=== PATIENT | female | born 1960 | race Caucasian/White ===

== ENCOUNTER 2018-09-02 11:50 | Emergency (ER) | payer OTHER ==
[2018-09-02] MEDS ORDERED: Albuterol 0.083% 2.5 MG/3 ML Neb Soln NEB ONE (12:28)
--- NOTE | 2018-09-02 12:31 | EDM.PDOC ---
ED HPI GENERAL MEDICAL PROBLEM - General Chief Complaint: Respiratory Problem Stated Complaint: SYNCOPE, SICK [id number] Time Seen by Provider: 09/02/18 12:31 Source of Information: Reports: Patient History Limitations: Reports: No Limitations - History of Present Illness INITIAL COMMENTS - FREE TEXT/NARRATIVE: 57-year-old female presents for evaluation and treatment of a cough and syncope. Patient reports she's been with a cough and cold symptoms for the last 2 weeks. She states that started with a sore throat and right-sided ear pain. She states that these symptoms have improved. She reports sneezing. States that the cough has been mostly dry but when she takes some NyQuil or DayQuil it is more of a productive cough. She reports some tightness in her chest and she feels short of breath. She reports that she has been coughing so hard she has "blacking out spells." She states that she loses control of her bowel and bladder when these occur. She states that she will be coughing will turn red in the face and then purple. She then states that she blacks out for approximately 10 seconds. On some occasion she has fallen another she has remained standing. She additionally reports symptoms of headache, body aches and states that her lungs hurt. She has tried multiple [id number] medications but her symptoms have persisted. She denies any nausea, vomiting, diarrhea or abdominal pain. Patient reports that she has a CPAP machine but has been unable to wear it due to the shortness of breath. Patient does not have a primary care provider. Relocated from [place], [place] approximately one month ago. Middle Chest Pain Score (Numeric/FACES): 5 - Related Data Allergies Allergy/AdvReac Type Severity Reaction Status Date / Time azithromycin Allergy Cannot Verified 09/02/18 12:04 Remember clindamycin Allergy Cannot Verified 09/02/18 12:04 Remember erythromycin base Allergy Cannot Verified 09/02/18 12:04 Remember Penicillins Allergy Cannot Verified 09/02/18 12:04 Remember Home Meds: Home Meds Albuterol [Ventolin HFA] 1 puff INH Q4H PRN #1 inhaler 09/02/18 [Rx] Doxycycline [Vibramycin] 100 mg PO BID #20 cap 09/02/18 [Rx] Past Medical History Cardiovascular History: Reports: Hypertension Respiratory History: Reports: Pneumonia, Recurrent Endocrine/Metabolic History: Reports: Diabetes, Type II, Hypothyroidism - Past Surgical History Female Surgical History: Reports: Section Social & Family History - Tobacco Use Smoking Status *Q: Never Smoker - Recreational Drug Use Recreational Drug Use: No ED ROS GENERAL - Review of Systems Review Of Systems: See Below Constitutional: Reports: Fever (subjective), Chills, Other (reports bodyaches) HEENT: Reports: Ear Pain, Throat Pain Respiratory: Reports: Shortness of Breath, Cough, Sputum Cardiovascular: Reports: Chest Pain (reports tightness in chest) GI/Abdominal: Reports: Nausea, Stool Incontinence (with syncope). Denies: Abdominal Pain, Vomiting : Reports: Incontinence (with syncope) Neurological: Reports: Headache, Syncope (post cough) ED EXAM, GENERAL - Physical Exam Exam: See Below Exam Limited By: No Limitations General Appearance: Alert, WD/WN, No Apparent Distress, Obese Ears: Normal External Exam, Normal Canal, Hearing Grossly Normal, Normal TMs Ear Exam: Left Ear: TM Red Nose: Normal Inspection Throat/Mouth: Normal Inspection, Normal Voice, No Airway Compromise Neck: Normal Inspection. No: Lymphadenopathy (L), Lymphadenopathy (R) Respiratory/Chest: No Respiratory Distress, Lungs Clear, Normal Breath Sounds Cardiovascular: Normal Peripheral Pulses, Regular Rate, Rhythm, No Murmur Peripheral Pulses: 2+: Radial (L), Radial (R) GI/Abdominal: Soft, Non-Tender Neurological: Alert, Oriented, Normal Cognition Psychiatric: Normal Affect, Normal Mood Skin Exam: Warm, Dry, Normal Color Course - Vital Signs Last Recorded V/S: Last Vital Signs Temp 97.4 F 09/02/18 12:00 Pulse 75 09/02/18 12:00 Resp 26 H 09/02/18 12:00 BP 145/80 H 09/02/18 12:00 Pulse Ox 91 L 09/02/18 12:28 - Orders/Labs/Meds Labs: Laboratory Tests 09/02/18 09/02/18 09/02/18 Range/Units 14:00 14:00 14:00 WBC 10.73 H (3.98-10.04) K/mm3 RBC 4.52 (3.98-5.22) M/mm3 Hgb 13.8 (11.2-15.7) gm/L Hct 44.2 (34.1-44.9) % MCV 97.8 H (79.4-94.8) fl MCH 30.5 (25.6-32.2) pg MCHC 31.2 L (32.2-35.5) g/dl RDW Std Deviation 49.6 H (36.4-46.3) fL Plt Count 334 (182-369) K/mm3 MPV 10.5 (9.4-12.3) fl Neutrophils % (Manual) 40 (40-60) % Band Neutrophils % 0 (0-10) % Lymphocytes % (Manual) 44 H (20-40) % Atypical Lymphs % 0 % Monocytes % (Manual) 8 (2-10) % Eosinophils % (Manual) 7 H (0.7-5.8) % Basophils % (Manual) 1 (0.1-1.2) Platelet Estimate Adequate Plt Morphology Comment Normal Hypochromasia 1+ slight Anisocytosis 1+ slight RBC Morph Comment Not Reportable D-Dimer, Quantitative 0.32 (0.19-0.50) mg/L Sodium 138 (136-145) mEq/L Potassium 4.4 (3.5-5.1) mEq/L Chloride 103 (98-107) mEq/L Carbon Dioxide 25 (21-32) mEq/L Anion Gap 14.4 (5-15) BUN 19 H (7-18) mg/dL Creatinine 0.8 (0.55-1.02) mg/dL Est Cr Clr Drug Dosing 57.07 mL/min Estimated GFR (MDRD) > 60 (>60) mL/min BUN/Creatinine Ratio 23.8 H (14-18) Glucose 100 (74-106) mg/dL Calcium 8.9 (8.5-10.1) mg/dL Total Bilirubin 0.3 (0.2-1.0) mg/dL AST 18 (15-37) U/L ALT 23 (14-59) U/L Alkaline Phosphatase 90 (46-116) U/L C-Reactive Protein 1.0 (<1.0) mg/dL NT-Pro-B Natriuret Pep (0-125) pg/mL Total Protein 7.1 (6.4-8.2) g/dl Albumin 3.3 L (3.4-5.0) g/dl Globulin 3.8 gm/dL Albumin/Globulin Ratio 0.9 L (1-2) 09/02/18 Range/Units 14:00 WBC (3.98-10.04) K/mm3 RBC (3.98-5.22) M/mm3 Hgb (11.2-15.7) gm/L Hct (34.1-44.9) % MCV (79.4-94.8) fl MCH (25.6-32.2) pg MCHC (32.2-35.5) g/dl RDW Std Deviation (36.4-46.3) fL Plt Count (182-369) K/mm3 MPV (9.4-12.3) fl Neutrophils % (Manual) (40-60) % Band Neutrophils % (0-10) % Lymphocytes % (Manual) (20-40) % Atypical Lymphs % % Monocytes % (Manual) (2-10) % Eosinophils % (Manual) (0.7-5.8) % Basophils % (Manual) (0.1-1.2) Platelet Estimate Plt Morphology Comment Hypochromasia Anisocytosis RBC Morph Comment D-Dimer, Quantitative (0.19-0.50) mg/L Sodium (136-145) mEq/L Potassium (3.5-5.1) mEq/L Chloride (98-107) mEq/L Carbon Dioxide (21-32) mEq/L Anion Gap (5-15) BUN (7-18) mg/dL Creatinine (0.55-1.02) mg/dL Est Cr Clr Drug Dosing mL/min Estimated GFR (MDRD) (>60) mL/min BUN/Creatinine Ratio (14-18) Glucose (74-106) mg/dL Calcium (8.5-10.1) mg/dL Total Bilirubin (0.2-1.0) mg/dL AST (15-37) U/L ALT (14-59) U/L Alkaline Phosphatase (46-116) U/L C-Reactive Protein (<1.0) mg/dL NT-Pro-B Natriuret Pep 85 (0-125) pg/mL Total Protein (6.4-8.2) g/dl Albumin (3.4-5.0) g/dl Globulin gm/dL Albumin/Globulin Ratio (1-2) Meds: Medications Discontinued Medications Generic Name Dose Route Start Last Admin Trade Name Freq PRN Reason Stop Dose Admin Albuterol 2.5 mg 09/02/18 12:28 09/02/18 12:36 Proventil Neb Soln NEB 09/02/18 12:29 2.5 mg ONETIME ONE Administration - Radiology Interpretation Free Text/Narrative:: Chest: Two views of the chest were obtained. Comparison: No prior chest x-ray. Heart size at the upper limits of normal. Lung markings are diffusely increased. Lungs otherwise are clear. Mild degenerative change is scattered throughout the spine. Impression: 1. Increased lung markings. Findings may represent pulmonary vascular congestion as well as possible mild bronchitis. 2. Incidental degenerative change is scattered throughout the spine. - Re-Assessments/Exams Free Text/Narrative Re-Assessment/Exam: 09/02/18 15:33 Reviewed the labs and imaging with the patient. Concerned that her oxygen sats is on the lower side in the upper 80s low. She states that she did go on a trip recently to [place]. Will obtain a BNP and d- dimer to rule out a PE as well as evaluate for heart failure. She reports no history of heart failure. Patient states she has been told her oxygen sats have been low before but she does not know what they normally run at. 09/02/18 16:26 BNP and d-dimer within normal limits. Will treat for bronchitis. Discharge instructions as documented. Departure - Departure Time of Disposition: 16:26 Disposition: Home, Self-Care 01 Condition: Fair Clinical Impression: Bronchitis - Discharge Information *PRESCRIPTION DRUG MONITORING PROGRAM REVIEWED*: No *COPY OF PRESCRIPTION DRUG MONITORING REPORT IN PATIENT ABIOLA: No Prescriptions: Albuterol [Ventolin HFA] 1 puff INH Q4H PRN #1 inhaler PRN Reason: Shortness Of Breath Doxycycline [Vibramycin] 100 mg PO BID #20 cap Instructions: Acute Bronchitis, Adult, [id number] Referrals: PCP,None [Primary Care Provider] - Pennie Hall MD [Physician] - Forms: ED Department Discharge, ED Return to Work/School Form Additional Instructions: Use the albuterol 1 or 2 puffs every 4 to 6 hours as needed shortness of breath. Recommend purchasing a spacer at the pharmacy and using this with the inhaler. doxycycline 1 cap PO Twice a day for 10 days. This medication can cause photosensitivity. Avoid the sun or worsen screen if you are in the sun. make sure you are drinking plenty of fluids. REst. Follow up with yur primary care provider next week as planned. Please return to the ER if your symptoms change or worsen.i
--- NOTE | 2018-09-02 15:09 | CR ---
Chest: Two views of the chest were obtained. Comparison: No prior chest x-ray. Heart size at the upper limits of normal. Lung markings are diffusely increased. Lungs otherwise are clear. Mild degenerative change is scattered throughout the spine. Impression: 1. Increased lung markings. Findings may represent pulmonary vascular congestion as well as possible mild bronchitis. 2. Incidental degenerative change is scattered throughout the spine. Diagnostic code #3
== END 2018-09-02 16:49 | disposition home or self-care (01) ==
LOC: JD.ED 11:50
DX: J40 Bronchitis, not specified as acute or chronic (principal); E11.9 Type 2 diabetes mellitus without complications; Z88.0 Allergy status to penicillin; Z88.1 Allergy status to other antibiotic agents
CPT/HCPCS: 36415; 71046; 71046-26; 80053; 83880; 85007; 85027; 85379; 86140; 94640; 99285-25

== ENCOUNTER 2018-09-05 10:54 | Emergency (ER) | payer OTHER ==
--- NOTE | 2018-09-05 13:05 | CR ---
Chest: Two views of the chest are obtained. Comparison: Previous chest x-ray of 09/02/18. Heart size is normal. Lungs are clear with no acute parenchymal change. Mild diffuse disc space narrowing is seen within the spine. Impression: 1. Nothing acute is appreciated on two-view chest x-ray. Diagnostic code #2
--- NOTE | 2018-09-05 13:07 | EDM.PDOC ---
ED HPI GENERAL MEDICAL PROBLEM - General Chief Complaint: Respiratory Problem Stated Complaint: SOB Time Seen by Provider: 09/05/18 12:32 Source of Information: Reports: Patient, RN Notes Reviewed History Limitations: Reports: No Limitations - History of Present Illness INITIAL COMMENTS - FREE TEXT/NARRATIVE: Medical records indicate that the patient was seen in this ED on 09/02/2018 with a complaint at that time of a dry cough and cold-like symptoms for the prior 2 weeks. Her symptoms had begun with a sore throat, followed by right ear pain, and sneezing. She reported that she sometimes coughed to near-syncope and incontinence of both bowel and bladder. A CBC performed at that time revealed a WBC count elevated at 10.73, but with 0% bandemia. A CMP was normal, a CRP was 1.0, and a D-dimer was not elevated. A BNP was normal at 85. A chest x-ray found increased pulmonary markings, consistent with either mild CHF or bronchitis, however, there was no cardiomegaly. The patient was diagnosed with bronchitis and prescribed an albuterol MDI along with doxycycline 100 mg BID x 10 days. She was instructed to follow-up with her PCP. The patient states that her symptoms have persisted, and have not improved despite the albuterol and doxycycline. She states that she had a syncopal episode associated with a coughing spell last night. She states that she struck her head, and has a mild headache, but no bump on her head. The patient states that her cough is worse if she is supine, and her breath sounds are loud enough to keep her awake at night. She has not had a fever. In addition to the albuterol and doxycycline, the patient states that she has also taken [id number] Mucinex, which has also not helped. Here in the ED, the patient's vital signs were found to be stable, with an oxygen saturation of 97% on room air. The patient's PCP is Dr. Pennie Madison. The patient states that she has an appointment to see Dr. Madison on 09/08/2018. - Related Data Allergies Allergy/AdvReac Type Severity Reaction Status Date / Time azithromycin Allergy Cannot Verified 09/05/18 11:02 Remember clindamycin Allergy Cannot Verified 09/05/18 11:02 Remember erythromycin base Allergy Cannot Verified 09/05/18 11:02 Remember Penicillins Allergy Cannot Verified 09/05/18 11:02 Remember Home Meds: Home Meds Albuterol [Ventolin HFA] 1 puff INH Q4H PRN #1 inhaler 09/02/18 [Rx] Doxycycline [Vibramycin] 100 mg PO BID #20 cap 09/02/18 [Rx] Past Medical History Cardiovascular History: Reports: Hypertension Respiratory History: Reports: Sleep Apnea (nightly CPAP 8) Gastrointestinal History: Reports: GERD, PUD Genitourinary History: Reports: Urinary Incontinence (stress incontinence) Psychiatric History: Reports: Depression Endocrine/Metabolic History: Reports: Diabetes, Type II, Hypothyroidism, Obesity /BMI 30+ - Past Surgical History HEENT Surgical History: Reports: Oral Surgery (wisdom teeth extraction) GI Surgical History: Reports: Appendectomy, Colonoscopy (x 2), EGD (x 1), Hernia , Abdominal (x 2) Female Surgical History: Reports: Section (x 2), Tubal Ligation ( bilateral) Social & Family History - Tobacco Use Smoking Status *Q: Former Smoker Years of Tobacco use: 22 Packs/Tins Daily: 1.5 Month/Year Tobacco Last Used: Quit 2008 Second Hand Smoke Exposure: No - Alcohol Use Alcohol Use History: Yes Alcohol Use Frequency: Socially - Recreational Drug Use Recreational Drug Use: No - Living Situation & Occupation Living situation: Reports: , with Spouse 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 ED EXAM, GENERAL - Physical Exam Exam: See Below Exam Limited By: No Limitations General Appearance: Alert, WD/WN, No Apparent Distress Eye Exam: Bilateral Eye: EOMI, Normal Inspection Ears: Normal External Exam, Normal Canal, Hearing Grossly Normal, Normal TMs Nose: Normal Inspection, Normal Mucosa, No Blood Throat/Mouth: Normal Inspection, Normal Lips, Normal Teeth, Normal Gums, Normal Oropharynx, Normal Voice, No Airway Compromise Head: Atraumatic, Normocephalic Neck: Normal Inspection, Supple, Non-Tender, Full Range of Motion. No: Lymphadenopathy (L), Lymphadenopathy (R) Respiratory/Chest: No Respiratory Distress, No Accessory Muscle Use, Decreased Breath Sounds (overall), Wheezing (slight inspiratory, with end-expiratory squeak). No: Crackles, Rhonchi, Prolonged Expiration Cardiovascular: Normal Peripheral Pulses, Regular Rate, Rhythm, No Gallop, No JVD, No Murmur, No Rub Peripheral Pulses: 4+: Radial (L), Radial (R) GI/Abdominal: Normal Bowel Sounds, Soft, Non-Tender, No Organomegaly, No Distention, No Abnormal Bruit, No Mass, Other (Obese) (Female) Exam: Deferred Rectal (Female) Exam: Deferred Back Exam: Normal Inspection, Full Range of Motion, NT Extremities: Normal Inspection, Normal Range of Motion, Normal Capillary Refill Neurological: Alert, Oriented, Normal Cognition, No Motor/Sensory Deficits Psychiatric: Normal Affect Skin Exam: Warm, Dry, Intact, Normal Color, No Rash Course - Vital Signs Last Recorded V/S: Last Vital Signs Temp 36.6 C 09/05/18 11:00 Pulse 78 09/05/18 11:00 Resp 18 09/05/18 11:00 BP 130/69 09/05/18 11:00 Pulse Ox 97 09/05/18 11:00 - Re-Assessments/Exams Free Text/Narrative Re-Assessment/Exam: 09/05/18 12:57 2-view chest radiograph reviewed. Poor inspiratory effort. The cardiac silhouette is within normal limits. No pulmonary vascular congestion. No pleural effusions. No focal infiltrate, although there are generally increased pulmonary markings, possibly due to body habitus. No pneumothorax. Formal read per the Radiologist pending. 09/05/18 13:06 I agree with the diagnosis from 09/02/2018 that the patient is suffering from bronchitis, however, I do not agree with the treatment with albuterol and doxycycline, as numerous studies have shown that neither of these agents are effective. Unfortunately, there are no treatments that have been shown to be of benefit for the treatment of viral bronchitis - not expectorants, decongestants , mucolytics, albuterol, ipratropium, antibiotics, or even opioids. It will simply have to run its course. Fortunately, the patient is nearing 3 weeks of symptoms, and bronchitis usually lasts about 3 weeks, so her symptoms should start to marcial on their own fairly soon. The patient's syncope is clearly cough syncope. I recommended that if she develops a coughing fit, that she sit down before she falls down. Departure - Departure Time of Disposition: 13:10 Disposition: Home, Self-Care Condition: Good Clinical Impression: Viral bronchitis, Cough syncope - Discharge Information *PRESCRIPTION DRUG MONITORING PROGRAM REVIEWED*: Not Applicable *COPY OF PRESCRIPTION DRUG MONITORING REPORT IN PATIENT ABIOLA: Not Applicable Instructions: Syncope, [id number], Acute Bronchitis, Adult Referrals: Pennie Hall MD [Physician] - Forms: ED Department Discharge Additional Instructions: You were seen in the emergency room for a persistent cough, sometimes so severe that it causes you to pass out. Workup in the ER included a chest x-ray, which, like the chest x-ray from 2018, is consistent with bronchitis. Unfortunately, there are no medicines that have been shown to benefit the symptoms of bronchitis. We therefore recommend that you stop taking the albuterol and doxycycline. Fortunately, bronchitis typically last about 3 weeks, so your symptoms should start to improve fairly soon. If you feel a cough spasm coming on, please sit down, so that you do not pass out and hurt yourself. Follow-up with your PCP, Dr. Madison, at your previously scheduled appointment this coming 09/08/2018. If any other problems, please do not hesitate to return to the ER.
== END 2018-09-05 13:20 | disposition home or self-care (01) ==
LOC: JD.ED 10:54
DX: J20.8 Acute bronchitis due to other specified organisms (principal); B97.89 Other viral agents as the cause of diseases classified elsewhere; I10 Essential (primary) hypertension; E11.9 Type 2 diabetes mellitus without complications; Z87.891 Personal history of nicotine dependence; Z79.899 Other long term (current) drug therapy; Z88.1 Allergy status to other antibiotic agents; Z88.0 Allergy status to penicillin
CPT/HCPCS: 71046; 71046-26; 99282; 99283-25

== ENCOUNTER 2019-07-20 16:10 | Inpatient (IN) | payer OTHER ==
[2019-07-20] MEDS ORDERED: Sodium Chloride 0.9% 1,000 ML IV ONE ×3 (17:20→20:36)
[2019-07-20] MEDS ORDERED: Sodium Chloride 0.9% 10 ML Syringe FLUSH PRN ×2 (17:21→18:31)
[2019-07-20] MEDS ORDERED: Ondansetron 4 MG/2 ML SDV IVPUSH ONE (17:21)
[2019-07-20] MEDS ORDERED: HYDROmorphone 0.5 MG/0.5 ML Syringe IVPUSH ONE (17:21)
[2019-07-20] MEDS ORDERED: Insulin Regular, Human 100 Units/ML 3 ML Vial IV ONE ×2 (18:16→20:16)
[2019-07-20] MEDS ORDERED: Iopamidol 612 MG/ML 100 ML Bottle IVPUSH ONE (18:31)
--- NOTE | 2019-07-20 20:25 | CT ---
CT abdomen and pelvis Technique: Multiple axial sections were obtained from above the dome of the diaphragm inferiorly through the pubic symphysis. Intravenous and oral contrast was utilized. Findings: Visualized lung bases show nothing acute. Liver shows mild fatty infiltration. No focal abnormality is appreciated within the liver. Spleen appears within normal limits. Adrenal glands show no nodule. Kidneys show symmetric contrast enhancement without hydronephrosis or mass. Pancreas appears within normal limits. Gallbladder contains no calcified gallstones. Aorta shows no aneurysm. No retroperitoneal adenopathy or mesenteric abnormalities are appreciated. Very slight inflammatory change is noted between the sigmoid colon and left ovary. Findings could represent diverticulitis and less likely oophoritis. No additional inflammatory change is seen. No free fluid is identified. Appendix is not visualized with certainty. Bone window settings shows diffuse degenerative change throughout the spine. Impression: 1. Inflammatory change between the sigmoid colon and ovary on the left side. Differential includes diverticulitis as well as less likely oophoritis. 2. Fatty infiltration within the liver. 3. Other findings as noted above which are nonacute. Diagnostic code #3 This report was dictated in MDT
[2019-07-20] MEDS ORDERED: metroNIDAZOLE/Normal Saline 500 MG in Premix Bag 1 BAG IV ONE (20:32)
[2019-07-20] MEDS ORDERED: Levofloxacin/Dextrose 5%-Water 750 MG in Premix Bag 1 BAG IV ONE (20:32)
--- NOTE | 2019-07-20 20:43 | EDM.PDOC ---
ED HPI GENERAL MEDICAL PROBLEM - General Chief Complaint: Diabetic Complaint Stated Complaint: SENT BY DR GARZA. Time Seen by Provider: 07/20/19 17:00 Source of Information: Reports: Patient, Provider (Dr. Vasquez called report) History Limitations: Reports: No Limitations - History of Present Illness INITIAL COMMENTS - FREE TEXT/NARRATIVE: Porsha is a 58 year old female sent over to us by her PCP for hyperglycemia. She was seeing her PCP today for abdominal pain she has had for 2.5 weeks. Labs were done which shows a glucose of 771. She was sent over to us for further care. Porsha reports LLQ pain into her back and flank for the last 2.5 weeks. Reports diarrhea, dark black/green stools. This has mostly resolved. Reports associated nausea and headaches. She has had a subjective fever and chills. She reports polydipsia. Has not been checking her blood sugars at home. She is on metformin/ dapagliflozin but has not taken it over the last 2-3 weeks due to feeling ill. Reports she had a colonscopy in 2013 and was told she had diverticula. Left Abdominal Pain Score (Numeric/FACES): 8 - Related Data Allergies Allergy/AdvReac Type Severity Reaction Status Date / Time azithromycin Allergy Cannot Verified 07/20/19 22:42 Remember clindamycin Allergy Cannot Verified 07/20/19 22:42 Remember erythromycin base Allergy Cannot Verified 07/20/19 22:42 Remember Penicillins Allergy Cannot Verified 07/20/19 22:42 Remember Home Meds: Home Meds Albuterol [Ventolin HFA] 1 puff INH Q4H PRN #1 inhaler 09/02/18 [Rx] Doxycycline [Vibramycin] 100 mg PO BID #20 cap 09/02/18 [Rx] Past Medical History Cardiovascular History: Reports: Hypertension Respiratory History: Reports: Asthma, COPD, Sleep Apnea Gastrointestinal History: Reports: GERD, PUD Genitourinary History: Reports: Urinary Incontinence Psychiatric History: Reports: Depression Endocrine/Metabolic History: Reports: Diabetes, Type II, Hypothyroidism, Obesity /BMI 30+ - Past Surgical History HEENT Surgical History: Reports: Oral Surgery GI Surgical History: Reports: Appendectomy, Colonoscopy, EGD, Hernia, Abdominal Female Surgical History: Reports: Section, Tubal Ligation Social & Family History - Tobacco Use Smoking Status *Q: Never Smoker Second Hand Smoke Exposure: No - Caffeine Use Caffeine Use: Reports: None - Recreational Drug Use Recreational Drug Use: No - Living Situation & Occupation Living situation: Reports: , with Spouse 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 Denies: Vomiting : Reports: No Symptoms Musculoskeletal: Reports: Back Pain (left back) ED EXAM GENERAL NO PERIP PULSE - Physical Exam Exam: See Below Exam Limited By: No Limitations General Appearance: Alert, WD/WN, No Apparent Distress, Obese Eye Exam: Bilateral Eye: Normal Inspection Throat/Mouth: Normal Inspection, Normal Lips, Normal Voice, No Airway Compromise Respiratory/Chest: No Respiratory Distress, Lungs Clear, Normal Breath Sounds Cardiovascular: Normal Peripheral Pulses, Regular Rate, Rhythm, No Murmur GI/Abdominal: Tender (suprapubic, LLQ), Abnormal Bowel Sounds (hypoactive ) Neurological: Alert, Oriented, Normal Cognition Psychiatric: Normal Affect, Normal Mood Skin Exam: Warm, Dry, Normal Color EKG INTERPRETATION EKG Date: 07/20/19 Time: 18:14 Rhythm: NSR Rate (Beats/Min): 89 [place]: Normal P-Wave: Present QRS: Normal ST-T: Normal QT: Normal EKG Interpretation Comments: nsr at 89 bpm. No acute changes. Reviewed by myself and Dr. Salgado. Course - Vital Signs Last Recorded V/S: Last Vital Signs Temp 97.5 F 07/20/19 16:45 Pulse 78 07/20/19 22:18 Resp 16 07/20/19 22:18 BP 149/98 H 07/20/19 22:18 Pulse Ox 97 07/20/19 22:18 - Orders/Labs/Meds Orders: Active Orders 24 hr Category Date Time Status Blood Glucose Check, Bedside [RC] ONETIME Care 07/20/19 20:37 Active EKG 12 Lead [EKG Documentation Completion] [RC] STAT Care 07/20/19 17:21 Active Peripheral IV Care [RC] . DIRECTED Care 07/20/19 17:21 Active UA W/MICROSCOPIC [URIN] Stat Lab 07/20/19 17:40 Ordered Sodium Chloride 0.9% [Saline Flush] Med 07/20/19 18:31 Active 10 ml FLUSH ONETIME PRN Peripheral IV Insertion Adult [OM.PC] Routine Oth 07/20/19 17:20 Ordered Medication Orders Acetaminophen (Tylenol) 650 mg PO Q4H PRN PRN Reason: Pain (Mild 1-3)/fever Hydrocodone Bitart/Acetaminophen ([place] 325-5 Mg) 1 tab PO Q4H PRN PRN Reason: Pain (moderate 4-6) Lactated Ringer's (Ringers, Lactated) 1,000 mls @ 85 mls/hr IV ASDIRECTED [facility] Levofloxacin/Dextrose 750 mg/ (Premix) 150 mls @ 100 mls/hr IV Q24H [facility] Metronidazole 500 mg/ Premix 100 mls @ 100 mls/hr IV Q8H [facility] Insulin Glargine (Lantus) 8 unit SUBCUT BEDTIME [facility] Morphine Sulfate (Morphine) 1 mg IVPUSH Q2H PRN PRN Reason: Pain (severe 7-10) Stop: 07/21/19 21:33 Nystatin (Nystatin Oral Syringe) 500,000 unit PO QID [facility] Ondansetron HCl (Zofran) 4 mg IVPUSH Q6H PRN PRN Reason: Nausea/Vomiting Senna/Docusate Sodium (Senna Plus) 1 tab PO BID PRN PRN Reason: Constipation Sodium Chloride (Saline Flush) 10 ml FLUSH ONETIME PRN PRN Reason: Keep Vein Open Last Admin: 07/20/19 19:52 Dose: 10 ml Labs: Laboratory Tests 07/20/19 07/20/19 07/20/19 Range/Units 17:30 17:30 17:30 WBC 10.94 H (3.98-10.04) K/mm3 RBC 4.47 (3.98-5.22) M/mm3 Hgb 14.2 (11.2-15.7) gm/dl Hct 43.5 (34.1-44.9) % MCV 97.3 H (79.4-94.8) fl MCH 31.8 (25.6-32.2) pg MCHC 32.6 (32.2-35.5) g/dl RDW Std Deviation 44.9 (36.4-46.3) fL Plt Count 338 (182-369) K/mm3 MPV 11.1 (9.4-12.3) fl Neut % (Auto) 76.3 H (34.0-71.1) % Lymph % (Auto) 15.4 L (19.3-51.7) % [place] % (Auto) 7.1 (4.7-12.5) % Eos % (Auto) 0.3 L (0.7-5.8) Baso % (Auto) 0.4 (0.1-1.2) % Neut # (Auto) 8.35 H (1.56-6.13) K/mm3 Lymph # (Auto) 1.69 (1.18-3.74) K/mm3 [place] # (Auto) 0.78 H (0.24-0.36) K/mm3 Eos # (Auto) 0.03 L (0.04-0.36) K/mm3 Baso # (Auto) 0.04 (0.01-0.08) K/mm3 Manual Slide Review Normal smear Sodium 127 L D (136-145) mEq/L Potassium 4.0 (3.5-5.1) mEq/L Chloride 90 L D (98-107) mEq/L Carbon Dioxide 26 (21-32) mEq/L Anion Gap 15.0 (5-15) BUN 5 L (7-18) mg/dL Creatinine 0.9 (0.55-1.02) mg/dL Est Cr Clr Drug Dosing 50.13 mL/min Estimated GFR (MDRD) > 60 (>60) mL/min BUN/Creatinine Ratio 5.6 L (14-18) Glucose 717 H* (74-106) mg/dL POC Glucose (70-105) mg/dL Serum Osmolality 303 H (280-300) mosm/kg Calcium 9.0 (8.5-10.1) mg/dL Magnesium 1.8 (1.8-2.4) mg/dl Total Bilirubin 0.5 (0.2-1.0) mg/dL AST 19 (15-37) U/L ALT 31 (14-59) U/L Alkaline Phosphatase 155 H (46-116) U/L C-Reactive Protein (<1.0) mg/dL Total Protein 7.0 (6.4-8.2) g/dl Albumin 2.9 L (3.4-5.0) g/dl Globulin 4.1 gm/dL Albumin/Globulin Ratio 0.7 L (1-2) Lipase 158 (73-393) U/L Ketones 1.89 (0.0-0.3) mM 07/20/19 07/20/19 07/20/19 Range/Units 17:30 19:41 21:01 WBC (3.98-10.04) K/mm3 RBC (3.98-5.22) M/mm3 Hgb (11.2-15.7) gm/dl Hct (34.1-44.9) % MCV (79.4-94.8) fl MCH (25.6-32.2) pg MCHC (32.2-35.5) g/dl RDW Std Deviation (36.4-46.3) fL Plt Count (182-369) K/mm3 MPV (9.4-12.3) fl Neut % (Auto) (34.0-71.1) % Lymph % (Auto) (19.3-51.7) % [place] % (Auto) (4.7-12.5) % Eos % (Auto) (0.7-5.8) Baso % (Auto) (0.1-1.2) % Neut # (Auto) (1.56-6.13) K/mm3 Lymph # (Auto) (1.18-3.74) K/mm3 [place] # (Auto) (0.24-0.36) K/mm3 Eos # (Auto) (0.04-0.36) K/mm3 Baso # (Auto) (0.01-0.08) K/mm3 Manual Slide Review Sodium (136-145) mEq/L Potassium (3.5-5.1) mEq/L Chloride (98-107) mEq/L Carbon Dioxide (21-32) mEq/L Anion Gap (5-15) BUN (7-18) mg/dL Creatinine (0.55-1.02) mg/dL Est Cr Clr Drug Dosing mL/min Estimated GFR (MDRD) (>60) mL/min BUN/Creatinine Ratio (14-18) Glucose 461 H (74-106) mg/dL POC Glucose 300 H (70-105) mg/dL Serum Osmolality (280-300) mosm/kg Calcium (8.5-10.1) mg/dL Magnesium (1.8-2.4) mg/dl Total Bilirubin (0.2-1.0) mg/dL AST (15-37) U/L ALT (14-59) U/L Alkaline Phosphatase (46-116) U/L C-Reactive Protein 8.1 H* (<1.0) mg/dL Total Protein (6.4-8.2) g/dl Albumin (3.4-5.0) g/dl Globulin gm/dL Albumin/Globulin Ratio (1-2) Lipase (73-393) U/L Ketones (0.0-0.3) mM Meds: Medications Generic Name Dose Route Start Last Admin Trade Name Freq PRN Reason Stop Dose Admin Acetaminophen 650 mg 07/20/19 21:21 Tylenol PO Q4H PRN Pain (Mild 1-3)/fever Hydrocodone Bitart/Acetaminophen 1 tab 07/20/19 21:21 [place] 325-5 Mg PO Q4H PRN Pain (moderate 4-6) Lactated Ringer's 1,000 mls @ 85 mls/hr 07/20/19 21:45 Ringers, Lactated IV ASDIRECTED [facility] Levofloxacin/Dextrose 750 mg/ 150 mls @ 100 mls/hr 07/21/19 21:45 Premix IV Q24H [facility] Metronidazole 500 mg/ Premix 100 mls @ 100 mls/hr 07/21/19 05:45 IV Q8H [facility] Insulin Glargine 8 unit 07/20/19 22:30 Lantus SUBCUT BEDTIME [facility] Morphine Sulfate 1 mg 07/20/19 21:21 Morphine IVPUSH 07/21/19 21:33 Q2H PRN Pain (severe 7-10) Nystatin 500,000 unit 07/21/19 09:00 Nystatin Oral Syringe PO QID [facility] Ondansetron HCl 4 mg 07/20/19 21:21 Zofran IVPUSH Q6H PRN Nausea/Vomiting Senna/Docusate Sodium 1 tab 07/20/19 22:32 Senna Plus PO BID PRN Constipation Sodium Chloride 10 ml 07/20/19 18:31 07/20/19 19:52 Saline Flush FLUSH 10 ml ONETIME PRN Administration Keep Vein Open Discontinued Medications Generic Name Dose Route Start Last Admin Trade Name Nimo PRN Reason Stop Dose Admin Hydromorphone HCl 0.5 mg 07/20/19 17:21 07/20/19 17:35 Dilaudid IVPUSH 07/20/19 17:22 0.5 mg ONETIME ONE Administration Sodium Chloride 1,000 mls @ 999 mls/hr 07/20/19 17:20 07/20/19 17:34 Normal Saline IV 07/20/19 18:20 999 mls/hr ONETIME ONE Administration Sodium Chloride 1,000 mls @ 999 mls/hr 07/20/19 18:16 07/20/19 18:33 Normal Saline IV 07/20/19 19:16 999 mls/hr ONETIME ONE Administration Levofloxacin/Dextrose 750 mg/ 150 mls @ 100 mls/hr 07/20/19 20:32 07/20/19 21 :45 Premix IV 07/20/19 22:01 100 mls/hr ONETIME ONE Administration Metronidazole 500 mg/ Premix 100 mls @ 100 mls/hr 07/20/19 20:32 07/20/19 20: 47 IV 07/20/19 21:31 100 mls/hr ONETIME ONE Administration Sodium Chloride 1,000 mls @ 150 mls/hr 07/20/19 20:36 07/20/19 20:47 Normal Saline IV 07/21/19 03:15 150 mls/hr ONETIME ONE Administration Lactated Ringer's 1,000 mls @ 125 mls/hr 07/20/19 21:30 Ringers, Lactated IV ASDIRECTED [facility] Insulin Human Regular 5 unit 07/20/19 18:16 07/20/19 18:24 Humulin R IV 07/20/19 18:17 5 unit ONETIME ONE Administration Insulin Human Regular 5 unit 07/20/19 20:16 07/20/19 20:32 Humulin R IV 07/20/19 20:17 5 unit ONETIME ONE Administration Iopamidol 100 ml 07/20/19 18:31 07/20/19 19:52 Isovue-300 (61%) IVPUSH 07/20/19 18:32 100 ml ONETIME ONE Administration Ondansetron HCl 4 mg 07/20/19 17:21 07/20/19 17:34 Zofran IVPUSH 07/20/19 17:22 4 mg ONETIME ONE Administration Sodium Chloride 10 ml 07/20/19 17:21 07/20/19 17:36 Saline Flush FLUSH 10 ml ASDIRECTED PRN Administration Keep Vein Open - Radiology Interpretation Free Text/Narrative:: CT abdomen and pelvis Technique: Multiple axial sections were obtained from above the dome of the diaphragm inferiorly through the pubic symphysis. Intravenous and oral contrast was utilized. Findings: Visualized lung bases show nothing acute. Liver shows mild fatty infiltration. No focal abnormality is appreciated within the liver. Spleen appears within normal limits. Adrenal glands show no nodule. Kidneys show symmetric contrast enhancement without hydronephrosis or mass. Pancreas appears within normal limits. Gallbladder contains no calcified gallstones. Aorta shows no aneurysm. No retroperitoneal adenopathy or mesenteric abnormalities are appreciated. Very slight inflammatory change is noted between the sigmoid colon and left ovary. Findings could represent diverticulitis and less likely oophoritis. No additional inflammatory change is seen. No free fluid is identified. Appendix is not visualized with certainty. Bone window settings shows diffuse degenerative change throughout the spine. Impression: 1. Inflammatory change between the sigmoid colon and ovary on the left side. Differential includes diverticulitis as well as less likely oophoritis. 2. Fatty infiltration within the liver. 3. Other findings as noted above which are nonacute. - Re-Assessments/Exams Free Text/Narrative Re-Assessment/Exam: 07/20/19 21:22 i reviewed the labs and imaging with the patient. She has received 2 L NS and 2 doses of 5 units regular insulin. Blood sugar at this time down to 300 from 717. 0.5mg Dilaudid has controlled her pain and she has not needed any additional pain medication. Spoke with Dr. Dumas regarding the patient. Agrees to the admission. She has been started on levaquin and flagyl for the diverticulitis. Departure - Departure Time of Disposition: 21:41 Disposition: Admitted As Inpatient 68 Condition: Fair Clinical Impression: Diverticulitis, Hyperglycemia - Discharge Information *PRESCRIPTION DRUG MONITORING PROGRAM REVIEWED*: No *COPY OF PRESCRIPTION DRUG MONITORING REPORT IN PATIENT ABIOLA: No Sepsis Event Note - Evaluation Sepsis Screening Result: No Definite Risk - Focused Exam Vital Signs: Vital Signs Temp Pulse Resp BP Pulse Ox 07/20/19 16:45 97.5 F 95 18 124/80 98 Date Exam was Performed: 07/20/19 Time Exam was Performed: 23:03 - My Orders Last 24 Hours: My Active Orders 07/20/19 17:20 Peripheral IV Insertion Adult [OM.PC] Routine 07/20/19 17:21 EKG 12 Lead [EKG Documentation Completion] [RC] STAT Peripheral IV Care [RC] . DIRECTED 07/20/19 17:40 UA W/MICROSCOPIC [URIN] Stat 07/20/19 18:31 Sodium Chloride 0.9% [Saline Flush] 10 ml FLUSH ONETIME PRN 07/20/19 20:37 Blood Glucose Check, Bedside [RC] ONETIME - Assessment/Plan Last 24 Hours: My Active Orders 07/20/19 17:20 Peripheral IV Insertion Adult [OM.PC] Routine 07/20/19 17:21 EKG 12 Lead [EKG Documentation Completion] [RC] STAT Peripheral IV Care [RC] . DIRECTED 07/20/19 17:40 UA W/MICROSCOPIC [URIN] Stat 07/20/19 18:31 Sodium Chloride 0.9% [Saline Flush] 10 ml FLUSH ONETIME PRN 07/20/19 20:37 Blood Glucose Check, Bedside [RC] ONETIME
[2019-07-20] MEDS ORDERED: Ondansetron 4 MG/2 ML SDV IVPUSH PRN (21:21)
[2019-07-20] MEDS ORDERED: Morphine 2 MG/ML Syringe IVPUSH PRN (21:21)
[2019-07-20] MEDS ORDERED: Lactated Ringers 1,000 ML IV SCH (21:30)
[2019-07-20] MEDS: Levofloxacin/Dextrose 5%-Water 750 MG in Premix Bag 1 BAG IV SCH (21:59)
--- NOTE | 2019-07-20 22:32 | PCM.HP.2 ---
<Abi Livingston - Last Filed: 07/20/19 23:28> H&P History of Present Illness - General Date of Service: 07/20/19 Admit Problem/Dx: Admission Diagnosis/Problem Admission Diagnosis/Problem Diverticulitis of colon, hyperglycemia Source of Information: Patient History Limitations: Reports: No Limitations - History of Present Illness Initial Comments - Free Text/Narative: The patient is a 58-year-old female, PCP Dr. Madison, with a past history of diabetes mellitus type 2, COPD, obstructive sleep apnea, hypertension , and hyperlipidemia, presented to the emergency room today after experiencing 3 weeks of abdominal pain that has gradually worsened until becoming intolerable this afternoon. Abdominal pain is sharp and is in left lower quadrant with radiation to left back. Worsened by oral intake and pressing on leftlower abdomen. For the past 3 weeks, patient has been eating clear liquids only. When she tries to advance diet to bland foods, abdominal pain increases and she goes back to clear liquids. Associated symptoms include nausea. She vomited yesterday. Denies blood in vomit. She has also had diarrhea on and off. Last bowel movement was 3 days ago and was dark. Yesterday, while urinating, the patient noticed bright red blood in the toilet and self rectal exam revealed blood per rectum. She has not had blood per rectum today. No blood was on toilet paper when wiping. She notes for 3 weeks her legs have been cramping on and off, she has had sore throat, dry mouth, cracking at corners of lips, and has been urinating more frequently and has felt very dehydrated. She also admits to feeling dizzy on and off. Denies shortness of breath, coughing, fevers or chills. The patient has not been taking her metformin because of nausea. 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 Yes sore throat/mouth- thrush on examination Left Abdominal Pain Score (Numeric/FACES): 8 - Related Data Allergies/Adverse Reactions: Allergies Allergy/AdvReac Type Severity Reaction Status Date / Time azithromycin Allergy Cannot Verified 07/20/19 22:42 Remember clindamycin Allergy Cannot Verified 07/20/19 22:42 Remember erythromycin base Allergy Cannot Verified 07/20/19 22:42 Remember Penicillins Allergy Cannot Verified 07/20/19 22:42 Remember Home Medications: Home Meds Albuterol [Ventolin HFA] 1 puff INH Q4H PRN #1 inhaler 09/02/18 [Rx] Doxycycline [Vibramycin] 100 mg PO BID #20 cap 09/02/18 [Rx] Past Medical History Cardiovascular History: Reports: High Cholesterol, Hypertension Respiratory History: Reports: Asthma, COPD, Sleep Apnea Gastrointestinal History: Reports: GERD, PUD Genitourinary History: Reports: Urinary Incontinence Psychiatric History: Reports: Depression Endocrine/Metabolic History: Reports: Diabetes, Type II, Hypothyroidism, Obesity /BMI 30+ - Past Surgical History HEENT Surgical History: Reports: Oral Surgery (wears dentures) GI Surgical History: Reports: Appendectomy, Colonoscopy (2016, benign), EGD, Hernia, Abdominal Female Surgical History: Reports: Section, Tubal Ligation Social & Family History - Tobacco Use Smoking Status *Q: Never Smoker Second Hand Smoke Exposure: No - Caffeine Use Caffeine Use: Reports: None - Recreational Drug Use Recreational Drug Use: No - Living Situation & Occupation Living situation: Reports: , with Spouse 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 Denies: Headache, Numbness, Difficulty Walking, Change in Speech Exam - Exam Exam: See Below - Vital Signs Vital Signs: Last Vital Signs Temp 97.5 F 07/20/19 16:45 Pulse 78 07/20/19 22:18 Resp 16 07/20/19 22:18 BP 149/98 H 07/20/19 22:18 Pulse Ox 97 07/20/19 22:18 Weight: 84.368 kg - Exam General: Alert, Oriented, Cooperative HEENT: Pupils Equal, Pupils Reactive, Other (White patches on tongue and posterior oropharynx, thrush. No petechiae on mucosa. Angular cheilitis bilaterally.) Neck: Supple, Trachea Midline Lungs: Clear to Auscultation, Normal Respiratory Effort. No: Crackles, Rales, Rhonchi, Wheezing Cardiovascular: Regular Rate, Regular Rhythm, Normal S1, Normal S2 GI/Abdominal Exam: Soft, Tender (at LLQ. No tenderness with percussion. Voluntary guarding with palpation of LLQ.), Other (hypoactive bowel sounds) Extremities: No Pedal Edema, Normal Capillary Refill Peripheral Pulses: 2+: Popliteal (L), Popliteal (R) Skin: Warm, Dry, Intact Neuro Extensive - Mental Status: Alert, Oriented x3, Normal Mood/Affect Neuro Extensive - Motor, Sensory, Reflexes: Other (Patient has light touch sensation intact in all 10 toes bilaterally and lateral and medial plantar and dorsal surface of feet.) - Patient Data Lab Results Last 24 hrs: Laboratory Results - last 24 hr 07/20/19 07/20/19 07/20/19 Range/Units 17:30 17:30 17:30 WBC 10.94 H (3.98-10.04) K/mm3 RBC 4.47 (3.98-5.22) M/mm3 Hgb 14.2 (11.2-15.7) gm/dl Hct 43.5 (34.1-44.9) % MCV 97.3 H (79.4-94.8) fl MCH 31.8 (25.6-32.2) pg MCHC 32.6 (32.2-35.5) g/dl RDW Std Deviation 44.9 (36.4-46.3) fL Plt Count 338 (182-369) K/mm3 MPV 11.1 (9.4-12.3) fl Neut % (Auto) 76.3 H (34.0-71.1) % Lymph % (Auto) 15.4 L (19.3-51.7) % [place] % (Auto) 7.1 (4.7-12.5) % Eos % (Auto) 0.3 L (0.7-5.8) Baso % (Auto) 0.4 (0.1-1.2) % Neut # (Auto) 8.35 H (1.56-6.13) K/mm3 Lymph # (Auto) 1.69 (1.18-3.74) K/mm3 [place] # (Auto) 0.78 H (0.24-0.36) K/mm3 Eos # (Auto) 0.03 L (0.04-0.36) K/mm3 Baso # (Auto) 0.04 (0.01-0.08) K/mm3 Manual Slide Review Normal smear Sodium 127 L D (136-145) mEq/L Potassium 4.0 (3.5-5.1) mEq/L Chloride 90 L D (98-107) mEq/L Carbon Dioxide 26 (21-32) mEq/L Anion Gap 15.0 (5-15) BUN 5 L (7-18) mg/dL Creatinine 0.9 (0.55-1.02) mg/dL Est Cr Clr Drug Dosing 50.13 mL/min Estimated GFR (MDRD) > 60 (>60) mL/min BUN/Creatinine Ratio 5.6 L (14-18) Glucose 717 H* (74-106) mg/dL POC Glucose (70-105) mg/dL Serum Osmolality 303 H (280-300) mosm/kg Calcium 9.0 (8.5-10.1) mg/dL Magnesium 1.8 (1.8-2.4) mg/dl Total Bilirubin 0.5 (0.2-1.0) mg/dL AST 19 (15-37) U/L ALT 31 (14-59) U/L Alkaline Phosphatase 155 H (46-116) U/L C-Reactive Protein (<1.0) mg/dL Total Protein 7.0 (6.4-8.2) g/dl Albumin 2.9 L (3.4-5.0) g/dl Globulin 4.1 gm/dL Albumin/Globulin Ratio 0.7 L (1-2) Lipase 158 (73-393) U/L Ketones 1.89 (0.0-0.3) mM 07/20/19 07/20/19 07/20/19 Range/Units 17:30 19:41 21:01 WBC (3.98-10.04) K/mm3 RBC (3.98-5.22) M/mm3 Hgb (11.2-15.7) gm/dl Hct (34.1-44.9) % MCV (79.4-94.8) fl MCH (25.6-32.2) pg MCHC (32.2-35.5) g/dl RDW Std Deviation (36.4-46.3) fL Plt Count (182-369) K/mm3 MPV (9.4-12.3) fl Neut % (Auto) (34.0-71.1) % Lymph % (Auto) (19.3-51.7) % [place] % (Auto) (4.7-12.5) % Eos % (Auto) (0.7-5.8) Baso % (Auto) (0.1-1.2) % Neut # (Auto) (1.56-6.13) K/mm3 Lymph # (Auto) (1.18-3.74) K/mm3 [place] # (Auto) (0.24-0.36) K/mm3 Eos # (Auto) (0.04-0.36) K/mm3 Baso # (Auto) (0.01-0.08) K/mm3 Manual Slide Review Sodium (136-145) mEq/L Potassium (3.5-5.1) mEq/L Chloride (98-107) mEq/L Carbon Dioxide (21-32) mEq/L Anion Gap (5-15) BUN (7-18) mg/dL Creatinine (0.55-1.02) mg/dL Est Cr Clr Drug Dosing mL/min Estimated GFR (MDRD) (>60) mL/min BUN/Creatinine Ratio (14-18) Glucose 461 H (74-106) mg/dL POC Glucose 300 H (70-105) mg/dL Serum Osmolality (280-300) mosm/kg Calcium (8.5-10.1) mg/dL Magnesium (1.8-2.4) mg/dl Total Bilirubin (0.2-1.0) mg/dL AST (15-37) U/L ALT (14-59) U/L Alkaline Phosphatase (46-116) U/L C-Reactive Protein 8.1 H* (<1.0) mg/dL Total Protein (6.4-8.2) g/dl Albumin (3.4-5.0) g/dl Globulin gm/dL Albumin/Globulin Ratio (1-2) Lipase (73-393) U/L Ketones (0.0-0.3) mM Result Diagrams: 07/20/19 17:30 07/20/19 17:30 Imaging Impressions Last 24 hrs: Abdominal/pelvis CT reveals inflammatory changes between the sigmoid colon and left ovary. Differential diagnosis includes acute sigmoid diverticulitis versus less likely oophoritis. Sepsis Event Note - Evaluation Sepsis Screening Result: No Definite Risk - Focused Exam Vital Signs: Vital Signs Temp Pulse Resp BP Pulse Ox 07/20/19 22:18 78 16 149/98 H 97 07/20/19 16:45 97.5 F 95 18 124/80 98 Date Exam was Performed: 07/20/19 Time Exam was Performed: 23:28 - Problem List (1) Diverticulitis SNOMED Code(s): 043514527 ICD Code: K57.92 - DVTRCLI OF INTEST, PART UNSP, W/O PERF OR ABSCESS W/O BLEED Status: Acute Priority: High Current Visit: Yes (2) Hyperglycemia SNOMED Code(s): 78347044 ICD Code: R73.9 - HYPERGLYCEMIA, UNSPECIFIED Status: Acute Priority: High Current Visit: Yes (3) Diabetes mellitus type II, non insulin dependent SNOMED Code(s): 82368769 ICD Code: E11.9 - TYPE 2 DIABETES MELLITUS WITHOUT COMPLICATIONS Status: Chronic Priority: Medium Current Visit: Yes (4) Thrush, oral SNOMED Code(s): 62924035 ICD Code: B37.0 - CANDIDAL STOMATITIS Status: Acute Priority: Medium Current Visit: Yes (5) Severe obesity (BMI 35.0-35.9 with comorbidity) SNOMED Code(s): 69662796225622, 58395390447440 ICD Code: E66.01 - MORBID (SEVERE) OBESITY DUE TO EXCESS CALORIES; Z68.35 - BODY MASS INDEX (BMI) 35.0-35.9, ADULT Status: Chronic Priority: Medium Current Visit: Yes (6) Hematochezia SNOMED Code(s): 828040911 ICD Code: K92.1 - MELENA Status: Suspected Priority: Medium Current Visit: Yes (7) Obstructive sleep apnea on CPAP SNOMED Code(s): 00618600 ICD Code: G47.33 - OBSTRUCTIVE SLEEP APNEA (ADULT) (PEDIATRIC); Z99.89 - DEPENDENCE ON OTHER ENABLING MACHINES AND DEVICES Status: Chronic Priority: Low Current Visit: Yes (8) COPD (chronic obstructive pulmonary disease) SNOMED Code(s): 97534942 ICD Code: J44.9 - CHRONIC OBSTRUCTIVE PULMONARY DISEASE, UNSPECIFIED Status : Chronic Priority: Low Current Visit: Yes Problem List Initiated/Reviewed/Updated: Yes Orders Last 24hrs: Active Orders 24 hr Category Date Time Status Patient Status [ADT] Routine ADT 07/20/19 21:16 Active Antiembolic Devices [RC] PER UNIT ROUTINE Care 07/20/19 21:26 Active Blood Glucose Check, Bedside [RC] ONETIME Care 07/20/19 20:37 Active Blood Glucose Check, Bedside [RC] WITHMEALSANDBED Care 07/20/19 21:21 Active CPAP Adult [RT BiPAP/CPAP] [RC] ASDIRECTED Care 07/20/19 21:59 Ordered Diabetes Education [RC] DAILY Care 07/20/19 21:21 Active EKG 12 Lead [EKG Documentation Completion] [RC] STAT Care 07/20/19 17:21 Active Intake and Output [RC] QSHIFT Care 07/20/19 21:24 Active Oxygen Therapy [RC] PRN Care 07/20/19 21:21 Active POC Glucose [Blood Glucose Check, Bedside] [RC] Care 07/21/19 02:00 Ordered ASDIRECTED Peripheral IV Care [RC] . DIRECTED Care 07/20/19 17:21 Active Up With Assistance [RC] ASDIRECTED Care 07/20/19 21:21 Active VTE/DVT Education [RC] PER UNIT ROUTINE Care 07/20/19 21:21 Active Vital Signs [RC] Q4H Care 07/20/19 21:21 Active Clear Liquid Diet [DIET] Diet 07/21/19 Breakfast Active BASIC METABOLIC PANEL,BMP [CHEM] AM Lab 07/21/19 05:11 Ordered CBC WITH AUTO DIFF [HEME] AM Lab 07/21/19 05:11 Ordered GLYCOSYLATED HEMOGLOBIN,HGBA1C [CHEM] Routine Lab 07/20/19 17:30 Received MAGNESIUM [CHEM] AM Lab 07/21/19 05:11 Ordered PHOSPHORUS [CHEM] AM Lab 07/21/19 05:11 Ordered TROPONIN I [CHEM] Routine Lab 07/20/19 21:50 Received UA W/MICROSCOPIC [URIN] Stat Lab 07/20/19 17:40 Ordered Acetaminophen [Tylenol] Med 07/20/19 21:21 Active 650 mg PO Q4H PRN Acetaminophen/HYDROcodone [Lindsay 325-5 MG] Med 07/20/19 21:21 Active 1 tab PO Q4H PRN Insulin Glarg,Human.Rec.Analog [LantUS] Med 07/20/19 22:30 Ordered 8 unit SUBCUT BEDTIME Lactated Ringers [Ringers, Lactated] 1,000 ml Med 07/20/19 21:45 Active IV ASDIRECTED Levofloxacin/Dextrose 5%-Water [Levaquin in D5W 750 MG/ Med 07/21/19 21:45 Active 150 ML] 750 mg Premix Bag 1 bag IV Q24H Morphine Med 07/20/19 21:21 Active 1 mg IVPUSH Q2H PRN Nystatin [Nystatin Oral Syringe] Med 07/21/19 09:00 Ordered 500,000 unit PO QID Ondansetron [Zofran] Med 07/20/19 21:21 Active 4 mg IVPUSH Q6H PRN Sodium Chloride 0.9% [Saline Flush] Med 07/20/19 18:31 Active 10 ml FLUSH ONETIME PRN metroNIDAZOLE/Normal Saline [Flagyl 500 MG in NS 100 ML Med 07/21/19 05:45 Active ] 500 mg Premix Bag 1 bag IV Q8H Antiembolic Hose [OM.PC] Per Unit Routine Oth 07/20/19 21:26 Ordered Peripheral IV Insertion Adult [OM.PC] Routine Oth 07/20/19 17:20 Ordered Sequential Compression Device [OM.PC] Per Unit Routine Oth 07/20/19 21:26 Ordered Resuscitation Status Routine Resus Stat 07/20/19 21:21 Ordered Medication Orders Acetaminophen (Tylenol) 650 mg PO Q4H PRN PRN Reason: Pain (Mild 1-3)/fever Hydrocodone Bitart/Acetaminophen (Lindsay 325-5 Mg) 1 tab PO Q4H PRN PRN Reason: Pain (moderate 4-6) Lactated Ringer's (Ringers, Lactated) 1,000 mls @ 85 mls/hr IV ASDIRECTED GREG Levofloxacin/Dextrose 750 mg/ (Premix) 150 mls @ 100 mls/hr IV Q24H GREG Metronidazole 500 mg/ Premix 100 mls @ 100 mls/hr IV Q8H [facility] Insulin Glargine (Lantus) 8 unit SUBCUT BEDTIME GREG Morphine Sulfate (Morphine) 1 mg IVPUSH Q2H PRN PRN Reason: Pain (severe 7-10) Stop: 07/21/19 21:33 Nystatin (Nystatin Oral Syringe) 500,000 unit PO QID GREG Ondansetron HCl (Zofran) 4 mg IVPUSH Q6H PRN PRN Reason: Nausea/Vomiting Sodium Chloride (Saline Flush) 10 ml FLUSH ONETIME PRN PRN Reason: Keep Vein Open Last Admin: 07/20/19 19:52 Dose: 10 ml Assessment/Plan Comment:: Diverticulitis. CT scan reveals diverticulitis of sigmoid colon. WBC 10.94 with left shift. Patient is not able to tolerate oral intake due to pain and nausea. In ED was given levofloxacin 750mg IV x1, metronidazole 500mg IV x1, and Zofran 4mg IV x1. NS 1L bolus x3. The patient will be continued on maintenance fluids with LR running at 85ml/hr. Continue Levofloxacin 750mg IV q24 hours and metronidazole 500mg IV q8h. Zofran 4mg IV q6h as needed for nausea. NPO tonight. Clear liquid diet starting in AM. Hyperglycemia, uncontrolled diabetes Type 2. Blood sugar 717 on first draw in ED. Pt was given Insulin R 5 units and NS 2L bolus, blood sugar decreased to 461. Pt given another NS 1L bolus NS and insulin R 5 units, blood sugar decreased to 300. CO2 normal, no ketones in urine. Patient has not been taking metformin due to nausea. Will hold home metformin. Continue fluid resuscitation as stated above. Cautious Lantus 8 units SQ qhs tonight. Will check Fingerstick blood glucose ACHS. Diabetes education. Will adjust doses of insulins as needed based on actual FSs within the next 24 hours or earlier. Will check HbA1C. Requesting for lipid profile from PCP. BMP, Mg, Phos in AM. Hematochezia. Will recheck H/H in AM. Stool occult ordered. Holding off on anticoagulation for DVT prophylaxis until results of stool occult and repeat h/h after fluid resuscitation. Oral Thrush. Physical exam reveals white plaque on tongue and soft palate. Nystatin 500,000 units QID. Morbid obesity w/ comorbidities. BMI 37.6 Requesting for recent lipid profile from PCP. Will discuss diet and exercise for weight loss. Obstructive Sleep Apnea. Continue patient on CPAP at night with home settings. Asthma. Not in acute exacerbation. O2 saturation >93% on RA. Duoneb nebulizer 3mL q6h as needed for wheezing. Hx Hypertension. Patient reports hypertension but is not on home medications for blood pressure. Will monitor. Hx Dyslipidemia. Patient reports high cholesterol but is not on statin. Will request lipid profile and if not done in 6 months, will check. Pain Control: Acetaminophen 650mg po Q6H PRN mild pain or fever, HYDROcodone 5/ 325mg PO Q6H PRN moderate pain, and morphine sulfate 1 mg IVP Q2H PRN chest pain or severe pain. Nausea: In case of nausea use Zofran 4mg IVP Q6H PRN nausea. DVT Prophylaxis: Pt reports bright red blood per rectum yesterday. At this moment will avoid any anticoagulation or anti-aggregation. Will apply sequential compression devises and antiembolic stockings. We will keep monitoring H&H and platelet count, will check hemoccult and will monitor for any other signs of bleeding. If H&H stable, hemoccult negative, and no signs of active bleeding otherwise, anti-coagulation will be started tomorrow. GI Bleed Prophylaxis: Not indicated. Mylanta 30 mL q4h PRN indigestion. Constipation Prophylaxis: Docusate 100mg PO BID as needed for constipation. CODE STATUS: Full Code Disposition: Anticipated hospital stay is longer than 2 midnights. - Mortality Measure Prognosis:: Good <Leonardo Gardiner - Last Filed: 07/21/19 01:35> H&P History of Present Illness - General Admit Problem/Dx: Admission Diagnosis/Problem Admission Diagnosis/Problem Diverticulitis of colon Exam - Vital Signs Vital Signs: Last Vital Signs Temp 36.4 C 07/20/19 16:45 Pulse 78 07/20/19 22:18 Resp 16 07/20/19 22:18 BP 149/98 H 07/20/19 22:18 Pulse Ox 96 07/20/19 23:48 - Patient Data Lab Results Last 24 hrs: Laboratory Results - last 24 hr 07/20/19 07/20/19 07/20/19 Range/Units 17:30 17:30 17:30 WBC 10.94 H (3.98-10.04) K/mm3 RBC 4.47 (3.98-5.22) M/mm3 Hgb 14.2 (11.2-15.7) gm/dl Hct 43.5 (34.1-44.9) % MCV 97.3 H (79.4-94.8) fl MCH 31.8 (25.6-32.2) pg MCHC 32.6 (32.2-35.5) g/dl RDW Std Deviation 44.9 (36.4-46.3) fL Plt Count 338 (182-369) K/mm3 MPV 11.1 (9.4-12.3) fl Neut % (Auto) 76.3 H (34.0-71.1) % Lymph % (Auto) 15.4 L (19.3-51.7) % [place] % (Auto) 7.1 (4.7-12.5) % Eos % (Auto) 0.3 L (0.7-5.8) Baso % (Auto) 0.4 (0.1-1.2) % Neut # (Auto) 8.35 H (1.56-6.13) K/mm3 Lymph # (Auto) 1.69 (1.18-3.74) K/mm3 [place] # (Auto) 0.78 H (0.24-0.36) K/mm3 Eos # (Auto) 0.03 L (0.04-0.36) K/mm3 Baso # (Auto) 0.04 (0.01-0.08) K/mm3 Manual Slide Review Normal smear Sodium 127 L D (136-145) mEq/L Potassium 4.0 (3.5-5.1) mEq/L Chloride 90 L D (98-107) mEq/L Carbon Dioxide 26 (21-32) mEq/L Anion Gap 15.0 (5-15) BUN 5 L (7-18) mg/dL Creatinine 0.9 (0.55-1.02) mg/dL Est Cr Clr Drug Dosing 50.13 mL/min Estimated GFR (MDRD) > 60 (>60) mL/min BUN/Creatinine Ratio 5.6 L (14-18) Glucose 717 H* (74-106) mg/dL POC Glucose (70-105) mg/dL Hemoglobin A1c (4.50-6.20) % Serum Osmolality 303 H (280-300) mosm/kg Calcium 9.0 (8.5-10.1) mg/dL Magnesium 1.8 (1.8-2.4) mg/dl Total Bilirubin 0.5 (0.2-1.0) mg/dL AST 19 (15-37) U/L ALT 31 (14-59) U/L Alkaline Phosphatase 155 H (46-116) U/L Troponin I (0.00-0.056) ng/mL C-Reactive Protein (<1.0) mg/dL Total Protein 7.0 (6.4-8.2) g/dl Albumin 2.9 L (3.4-5.0) g/dl Globulin 4.1 gm/dL Albumin/Globulin Ratio 0.7 L (1-2) Lipase 158 (73-393) U/L Ketones 1.89 (0.0-0.3) mM 07/20/19 07/20/19 07/20/19 Range/Units 17:30 17:30 19:41 WBC (3.98-10.04) K/mm3 RBC (3.98-5.22) M/mm3 Hgb (11.2-15.7) gm/dl Hct (34.1-44.9) % MCV (79.4-94.8) fl MCH (25.6-32.2) pg MCHC (32.2-35.5) g/dl RDW Std Deviation (36.4-46.3) fL Plt Count (182-369) K/mm3 MPV (9.4-12.3) fl Neut % (Auto) (34.0-71.1) % Lymph % (Auto) (19.3-51.7) % [place] % (Auto) (4.7-12.5) % Eos % (Auto) (0.7-5.8) Baso % (Auto) (0.1-1.2) % Neut # (Auto) (1.56-6.13) K/mm3 Lymph # (Auto) (1.18-3.74) K/mm3 [place] # (Auto) (0.24-0.36) K/mm3 Eos # (Auto) (0.04-0.36) K/mm3 Baso # (Auto) (0.01-0.08) K/mm3 Manual Slide Review Sodium (136-145) mEq/L Potassium (3.5-5.1) mEq/L Chloride (98-107) mEq/L Carbon Dioxide (21-32) mEq/L Anion Gap (5-15) BUN (7-18) mg/dL Creatinine (0.55-1.02) mg/dL Est Cr Clr Drug Dosing mL/min Estimated GFR (MDRD) (>60) mL/min BUN/Creatinine Ratio (14-18) Glucose 461 H (74-106) mg/dL POC Glucose (70-105) mg/dL Hemoglobin A1c > 16.00 H (4.50-6.20) % Serum Osmolality (280-300) mosm/kg Calcium (8.5-10.1) mg/dL Magnesium (1.8-2.4) mg/dl Total Bilirubin (0.2-1.0) mg/dL AST (15-37) U/L ALT (14-59) U/L Alkaline Phosphatase (46-116) U/L Troponin I (0.00-0.056) ng/mL C-Reactive Protein 8.1 H* (<1.0) mg/dL Total Protein (6.4-8.2) g/dl Albumin (3.4-5.0) g/dl Globulin gm/dL Albumin/Globulin Ratio (1-2) Lipase (73-393) U/L Ketones (0.0-0.3) mM 07/20/19 07/20/19 07/20/19 Range/Units 21:01 21:50 23:26 WBC (3.98-10.04) K/mm3 RBC (3.98-5.22) M/mm3 Hgb (11.2-15.7) gm/dl Hct (34.1-44.9) % MCV (79.4-94.8) fl MCH (25.6-32.2) pg MCHC (32.2-35.5) g/dl RDW Std Deviation (36.4-46.3) fL Plt Count (182-369) K/mm3 MPV (9.4-12.3) fl Neut % (Auto) (34.0-71.1) % Lymph % (Auto) (19.3-51.7) % [place] % (Auto) (4.7-12.5) % Eos % (Auto) (0.7-5.8) Baso % (Auto) (0.1-1.2) % Neut # (Auto) (1.56-6.13) K/mm3 Lymph # (Auto) (1.18-3.74) K/mm3 [place] # (Auto) (0.24-0.36) K/mm3 Eos # (Auto) (0.04-0.36) K/mm3 Baso # (Auto) (0.01-0.08) K/mm3 Manual Slide Review Sodium (136-145) mEq/L Potassium (3.5-5.1) mEq/L Chloride (98-107) mEq/L Carbon Dioxide (21-32) mEq/L Anion Gap (5-15) BUN (7-18) mg/dL Creatinine (0.55-1.02) mg/dL Est Cr Clr Drug Dosing mL/min Estimated GFR (MDRD) (>60) mL/min BUN/Creatinine Ratio (14-18) Glucose (74-106) mg/dL POC Glucose 300 H 377 H (70-105) mg/dL Hemoglobin A1c (4.50-6.20) % Serum Osmolality (280-300) mosm/kg Calcium (8.5-10.1) mg/dL Magnesium (1.8-2.4) mg/dl Total Bilirubin (0.2-1.0) mg/dL AST (15-37) U/L ALT (14-59) U/L Alkaline Phosphatase (46-116) U/L Troponin I < 0.017 (0.00-0.056) ng/mL C-Reactive Protein (<1.0) mg/dL Total Protein (6.4-8.2) g/dl Albumin (3.4-5.0) g/dl Globulin gm/dL Albumin/Globulin Ratio (1-2) Lipase (73-393) U/L Ketones (0.0-0.3) mM Result Diagrams: 07/20/19 17:30 07/20/19 17:30 Sepsis Event Note - Focused Exam Vital Signs: Vital Signs Temp Pulse Resp BP Pulse Ox Pulse Ox Pulse Ox 07/20/19 23:48 96 96 07/20/19 22:18 78 16 149/98 H 97 07/20/19 16:45 36.4 C 95 18 124/80 98 Date Exam was Performed: 07/21/19 Time Exam was Performed: 01:33 Orders Last 24hrs: Active Orders 24 hr Category Date Time Status Patient Status [ADT] Routine ADT 07/20/19 21:16 Active Antiembolic Devices [RC] PER UNIT ROUTINE Care 07/20/19 21:26 Active Blood Glucose Check, Bedside [RC] WITHMEALSANDBED Care 07/20/19 21:21 Active CPAP Adult [RT BiPAP/CPAP] [RC] ASDIRECTED Care 07/20/19 21:59 Active Diabetes Education [RC] DAILY Care 07/20/19 21:21 Active EKG 12 Lead [EKG Documentation Completion] [RC] STAT Care 07/20/19 17:21 Active Intake and Output [RC] 04,16 Care 07/20/19 21:24 Active Oxygen Therapy [RC] PRN Care 07/20/19 21:21 Active POC Glucose [Blood Glucose Check, Bedside] [RC] Care 07/21/19 02:00 Active ASDIRECTED Up With Assistance [RC] ASDIRECTED Care 07/20/19 21:21 Active VTE/DVT Education [RC] PER UNIT ROUTINE Care 07/20/19 21:21 Active Vital Signs [RC] Q4H Care 07/20/19 21:21 Active Clear Liquid Diet [DIET] Diet 07/21/19 Breakfast Active BASIC METABOLIC PANEL,BMP [CHEM] AM Lab 07/21/19 05:11 Ordered CBC WITH AUTO DIFF [HEME] AM Lab 07/21/19 05:11 Ordered MAGNESIUM [CHEM] AM Lab 07/21/19 05:11 Ordered Occult Blood Diagnostic GI [OCCULT BLOOD DIAGNOSTIC] [ Lab 07/20/19 22:33 Ordered OP] Routine PHOSPHORUS [CHEM] AM Lab 07/21/19 05:11 Ordered UA W/MICROSCOPIC [URIN] Stat Lab 07/20/19 17:40 Ordered Acetaminophen [Tylenol] Med 07/20/19 21:21 Active 650 mg PO Q4H PRN Acetaminophen/HYDROcodone [Lindsay 325-5 MG] Med 07/20/19 21:21 Active 1 tab PO Q4H PRN Docusate Sodium/Sennosides [Senna Plus] Med 07/20/19 22:32 Active 1 tab PO BID PRN Insulin Glarg,Human.Rec.Analog [LantUS] Med 07/20/19 22:30 Active 8 unit SUBCUT BEDTIME Lactated Ringers [Ringers, Lactated] 1,000 ml Med 07/20/19 21:45 Active IV ASDIRECTED Levofloxacin/Dextrose 5%-Water [Levaquin in D5W 750 MG/ Med 07/21/19 21:45 Active 150 ML] 750 mg Premix Bag 1 bag IV Q24H Morphine Med 07/20/19 21:21 Active 1 mg IVPUSH Q2H PRN Nystatin [Nystatin Oral Syringe] Med 07/21/19 09:00 Active 500,000 unit PO QID Ondansetron [Zofran] Med 07/20/19 21:21 Active 4 mg IVPUSH Q6H PRN Sodium Chloride 0.9% [Saline Flush] Med 07/20/19 18:31 Active 10 ml FLUSH ONETIME PRN metroNIDAZOLE/Normal Saline [Flagyl 500 MG in NS 100 ML Med 07/21/19 05:45 Active ] 500 mg Premix Bag 1 bag IV Q8H Antiembolic Hose [OM.PC] Per Unit Routine Oth 07/20/19 21:26 Ordered Peripheral IV Insertion Adult [OM.PC] Routine Oth 07/20/19 17:20 Ordered Sequential Compression Device [OM.PC] Per Unit Routine Oth 07/20/19 21:26 Ordered Resuscitation Status Routine Resus Stat 07/20/19 21:21 Ordered Medication Orders Acetaminophen (Tylenol) 650 mg PO Q4H PRN PRN Reason: Pain (Mild 1-3)/fever Hydrocodone Bitart/Acetaminophen ([place] 325-5 Mg) 1 tab PO Q4H PRN PRN Reason: Pain (moderate 4-6) Last Admin: 07/20/19 23:24 Dose: 1 tab Lactated Ringer's (Ringers, Lactated) 1,000 mls @ 85 mls/hr IV ASDIRECTED [facility]REG Levofloxacin/Dextrose 750 mg/ (Premix) 150 mls @ 100 mls/hr IV Q24H [facility] Metronidazole 500 mg/ Premix 100 mls @ 100 mls/hr IV Q8H [facility] Insulin Glargine (Lantus) 8 unit SUBCUT BEDTIME [facility]REG Last Admin: 07/20/19 23:24 Dose: 8 units Morphine Sulfate (Morphine) 1 mg IVPUSH Q2H PRN PRN Reason: Pain (severe 7-10) Stop: 07/21/19 21:33 Nystatin (Nystatin Oral Syringe) 500,000 unit PO QID [facility]REG Ondansetron HCl (Zofran) 4 mg IVPUSH Q6H PRN PRN Reason: Nausea/Vomiting Senna/Docusate Sodium (Senna Plus) 1 tab PO BID PRN PRN Reason: Constipation Sodium Chloride (Saline Flush) 10 ml FLUSH ONETIME PRN PRN Reason: Keep Vein Open Last Admin: 07/20/19 19:52 Dose: 10 ml Assessment/Plan Comment:: I have seen and examined the patient independently of MERCEDES Livingston. I have discussed the patient with her. I have reviewed and agree with the plan and care as outlined by her. Please see orders.
[2019-07-20] MEDS: Insulin Glarg,Human.Rec.Analog 100 Unit/ML SUBCUT SCH (23:24)
[2019-07-20] MEDS: Acetaminophen/HYDROcodone 325-5 MG Tab PO PRN (23:24)
[2019-07-20 23:44] LABS: HEMOGLOBIN A1C > 16.00 % (4.50-6.20)
[2019-07-21] MEDS ORDERED: Albuterol/Ipratropium 3.0-0.5 MG/3 ML Neb Soln NEB PRN (02:03)
[2019-07-21] MEDS: metroNIDAZOLE/Normal Saline 500 MG in Premix Bag 1 BAG IV SCH ×3 (04:46→20:51)
[2019-07-21] MEDS: Lactated Ringers 1,000 ML IV SCH ×2 (05:46→16:29)
--- NOTE | 2019-07-21 07:57 | PCM.PN ---
- General Info Date of Service: 07/21/19 Admission Dx/Problem (Free Text): Admission Diagnosis/Problem Admission Diagnosis/Problem Diverticulitis of colon Functional Status: Reports: Pain Controlled, Tolerating Diet (clear liquids ), Ambulating, Urinating. Denies: New Symptoms - Review of Systems General: Reports: No Symptoms. Denies: Fever, Weakness, Fatigue, Malaise, Chills HEENT: Reports: Sore Throat. Denies: Headaches Pulmonary: Reports: No Symptoms. Denies: Shortness of Breath, Cough, Sputum, Wheezing Cardiovascular: Reports: No Symptoms. Denies: Chest Pain, Palpitations, Dyspnea on Exertion Gastrointestinal: Reports: Abdominal Pain (Left quadrants and epigastric region ), Diarrhea (2/2 oral contrast ). Denies: Constipation, Nausea, Vomiting Genitourinary: Reports: No Symptoms. Denies: Pain Musculoskeletal: Reports: No Symptoms Skin: Reports: No Symptoms. Denies: Cyanosis Neurological: Reports: No Symptoms. Denies: Confusion, Difficulty Walking, Gait Disturbance Psychiatric: Reports: No Symptoms - Patient Data Vitals - Most Recent: Last Vital Signs Temp 99.0 F 07/21/19 07:24 Pulse 85 07/21/19 07:24 Resp 24 H 07/21/19 07:24 BP 102/68 07/21/19 07:24 Pulse Ox 91 L 07/21/19 07:24 Weight - Most Recent: 192 lb 4.8 oz I&O - Last 24 Hours: Intake & Output 07/20/19 07/21/19 07/21/19 22:59 06:59 14:59 Intake Total 1198 Output Total 1250 Balance -52 Lab Results Last 24 Hours: Laboratory Results - last 24 hr 07/20/19 07/20/19 07/20/19 Range/Units 17:30 17:30 17:30 WBC 10.94 H (3.98-10.04) K/mm3 RBC 4.47 (3.98-5.22) M/mm3 Hgb 14.2 (11.2-15.7) gm/dl Hct 43.5 (34.1-44.9) % MCV 97.3 H (79.4-94.8) fl MCH 31.8 (25.6-32.2) pg MCHC 32.6 (32.2-35.5) g/dl RDW Std Deviation 44.9 (36.4-46.3) fL Plt Count 338 (182-369) K/mm3 MPV 11.1 (9.4-12.3) fl Neut % (Auto) 76.3 H (34.0-71.1) % Lymph % (Auto) 15.4 L (19.3-51.7) % [place] % (Auto) 7.1 (4.7-12.5) % Eos % (Auto) 0.3 L (0.7-5.8) Baso % (Auto) 0.4 (0.1-1.2) % Neut # (Auto) 8.35 H (1.56-6.13) K/mm3 Lymph # (Auto) 1.69 (1.18-3.74) K/mm3 [place] # (Auto) 0.78 H (0.24-0.36) K/mm3 Eos # (Auto) 0.03 L (0.04-0.36) K/mm3 Baso # (Auto) 0.04 (0.01-0.08) K/mm3 Manual Slide Review Normal smear Sodium 127 L D (136-145) mEq/L Potassium 4.0 (3.5-5.1) mEq/L Chloride 90 L D (98-107) mEq/L Carbon Dioxide 26 (21-32) mEq/L Anion Gap 15.0 (5-15) BUN 5 L (7-18) mg/dL Creatinine 0.9 (0.55-1.02) mg/dL Est Cr Clr Drug Dosing 50.13 mL/min Estimated GFR (MDRD) > 60 (>60) mL/min BUN/Creatinine Ratio 5.6 L (14-18) Glucose 717 H* (74-106) mg/dL POC Glucose (70-105) mg/dL Hemoglobin A1c (4.50-6.20) % Serum Osmolality 303 H (280-300) mosm/kg Calcium 9.0 (8.5-10.1) mg/dL Phosphorus (2.6-4.7) mg/dL Magnesium 1.8 (1.8-2.4) mg/dl Total Bilirubin 0.5 (0.2-1.0) mg/dL AST 19 (15-37) U/L ALT 31 (14-59) U/L Alkaline Phosphatase 155 H (46-116) U/L Troponin I (0.00-0.056) ng/mL C-Reactive Protein (<1.0) mg/dL Total Protein 7.0 (6.4-8.2) g/dl Albumin 2.9 L (3.4-5.0) g/dl Globulin 4.1 gm/dL Albumin/Globulin Ratio 0.7 L (1-2) Lipase 158 (73-393) U/L Ketones 1.89 (0.0-0.3) mM 07/20/19 07/20/19 07/20/19 Range/Units 17:30 17:30 19:41 WBC (3.98-10.04) K/mm3 RBC (3.98-5.22) M/mm3 Hgb (11.2-15.7) gm/dl Hct (34.1-44.9) % MCV (79.4-94.8) fl MCH (25.6-32.2) pg MCHC (32.2-35.5) g/dl RDW Std Deviation (36.4-46.3) fL Plt Count (182-369) K/mm3 MPV (9.4-12.3) fl Neut % (Auto) (34.0-71.1) % Lymph % (Auto) (19.3-51.7) % [place] % (Auto) (4.7-12.5) % Eos % (Auto) (0.7-5.8) Baso % (Auto) (0.1-1.2) % Neut # (Auto) (1.56-6.13) K/mm3 Lymph # (Auto) (1.18-3.74) K/mm3 [place] # (Auto) (0.24-0.36) K/mm3 Eos # (Auto) (0.04-0.36) K/mm3 Baso # (Auto) (0.01-0.08) K/mm3 Manual Slide Review Sodium (136-145) mEq/L Potassium (3.5-5.1) mEq/L Chloride (98-107) mEq/L Carbon Dioxide (21-32) mEq/L Anion Gap (5-15) BUN (7-18) mg/dL Creatinine (0.55-1.02) mg/dL Est Cr Clr Drug Dosing mL/min Estimated GFR (MDRD) (>60) mL/min BUN/Creatinine Ratio (14-18) Glucose 461 H (74-106) mg/dL POC Glucose (70-105) mg/dL Hemoglobin A1c > 16.00 H (4.50-6.20) % Serum Osmolality (280-300) mosm/kg Calcium (8.5-10.1) mg/dL Phosphorus (2.6-4.7) mg/dL Magnesium (1.8-2.4) mg/dl Total Bilirubin (0.2-1.0) mg/dL AST (15-37) U/L ALT (14-59) U/L Alkaline Phosphatase (46-116) U/L Troponin I (0.00-0.056) ng/mL C-Reactive Protein 8.1 H* (<1.0) mg/dL Total Protein (6.4-8.2) g/dl Albumin (3.4-5.0) g/dl Globulin gm/dL Albumin/Globulin Ratio (1-2) Lipase (73-393) U/L Ketones (0.0-0.3) mM 07/20/19 07/20/19 07/20/19 Range/Units 21:01 21:50 23:26 WBC (3.98-10.04) K/mm3 RBC (3.98-5.22) M/mm3 Hgb (11.2-15.7) gm/dl Hct (34.1-44.9) % MCV (79.4-94.8) fl MCH (25.6-32.2) pg MCHC (32.2-35.5) g/dl RDW Std Deviation (36.4-46.3) fL Plt Count (182-369) K/mm3 MPV (9.4-12.3) fl Neut % (Auto) (34.0-71.1) % Lymph % (Auto) (19.3-51.7) % [place] % (Auto) (4.7-12.5) % Eos % (Auto) (0.7-5.8) Baso % (Auto) (0.1-1.2) % Neut # (Auto) (1.56-6.13) K/mm3 Lymph # (Auto) (1.18-3.74) K/mm3 [place] # (Auto) (0.24-0.36) K/mm3 Eos # (Auto) (0.04-0.36) K/mm3 Baso # (Auto) (0.01-0.08) K/mm3 Manual Slide Review Sodium (136-145) mEq/L Potassium (3.5-5.1) mEq/L Chloride (98-107) mEq/L Carbon Dioxide (21-32) mEq/L Anion Gap (5-15) BUN (7-18) mg/dL Creatinine (0.55-1.02) mg/dL Est Cr Clr Drug Dosing mL/min Estimated GFR (MDRD) (>60) mL/min BUN/Creatinine Ratio (14-18) Glucose (74-106) mg/dL POC Glucose 300 H 377 H (70-105) mg/dL Hemoglobin A1c (4.50-6.20) % Serum Osmolality (280-300) mosm/kg Calcium (8.5-10.1) mg/dL Phosphorus (2.6-4.7) mg/dL Magnesium (1.8-2.4) mg/dl Total Bilirubin (0.2-1.0) mg/dL AST (15-37) U/L ALT (14-59) U/L Alkaline Phosphatase (46-116) U/L Troponin I < 0.017 (0.00-0.056) ng/mL C-Reactive Protein (<1.0) mg/dL Total Protein (6.4-8.2) g/dl Albumin (3.4-5.0) g/dl Globulin gm/dL Albumin/Globulin Ratio (1-2) Lipase (73-393) U/L Ketones (0.0-0.3) mM 07/21/19 07/21/19 07/21/19 Range/Units 05:35 05:35 06:07 WBC 12.37 H (3.98-10.04) K/mm3 RBC 4.17 (3.98-5.22) M/mm3 Hgb 13.2 (11.2-15.7) gm/dl Hct 41.2 (34.1-44.9) % MCV 98.8 H (79.4-94.8) fl MCH 31.7 (25.6-32.2) pg MCHC 32.0 L (32.2-35.5) g/dl RDW Std Deviation 45.7 (36.4-46.3) fL Plt Count 302 (182-369) K/mm3 MPV 11.1 (9.4-12.3) fl Neut % (Auto) 72.0 H (34.0-71.1) % Lymph % (Auto) 18.2 L (19.3-51.7) % [place] % (Auto) 8.2 (4.7-12.5) % Eos % (Auto) 0.9 (0.7-5.8) Baso % (Auto) 0.3 (0.1-1.2) % Neut # (Auto) 8.91 H (1.56-6.13) K/mm3 Lymph # (Auto) 2.25 (1.18-3.74) K/mm3 [place] # (Auto) 1.01 H (0.24-0.36) K/mm3 Eos # (Auto) 0.11 (0.04-0.36) K/mm3 Baso # (Auto) 0.04 (0.01-0.08) K/mm3 Manual Slide Review Sodium 137 D (136-145) mEq/L Potassium 3.7 (3.5-5.1) mEq/L Chloride 99 (98-107) mEq/L Carbon Dioxide 24 (21-32) mEq/L Anion Gap 17.7 H (5-15) BUN 5 L (7-18) mg/dL Creatinine 0.6 (0.55-1.02) mg/dL Est Cr Clr Drug Dosing 75.20 mL/min Estimated GFR (MDRD) > 60 (>60) mL/min BUN/Creatinine Ratio 8.3 L (14-18) Glucose 305 H (74-106) mg/dL POC Glucose 302 H (70-105) mg/dL Hemoglobin A1c (4.50-6.20) % Serum Osmolality (280-300) mosm/kg Calcium 8.1 L (8.5-10.1) mg/dL Phosphorus 2.5 L (2.6-4.7) mg/dL Magnesium 1.8 (1.8-2.4) mg/dl Total Bilirubin (0.2-1.0) mg/dL AST (15-37) U/L ALT (14-59) U/L Alkaline Phosphatase (46-116) U/L Troponin I (0.00-0.056) ng/mL C-Reactive Protein (<1.0) mg/dL Total Protein (6.4-8.2) g/dl Albumin (3.4-5.0) g/dl Globulin gm/dL Albumin/Globulin Ratio (1-2) Lipase (73-393) U/L Ketones (0.0-0.3) mM Damon Results Last 24 Hours: Microbiology 07/21/19 06:10 Stool Occult Blood (DAMON) - Final Stool / Feces Med Orders - Current: Current Medications Acetaminophen (Tylenol) 650 mg PO Q4H PRN PRN Reason: Pain (Mild 1-3)/fever Hydrocodone Bitart/Acetaminophen ([place] 325-5 Mg) 1 tab PO Q4H PRN PRN Reason: Pain (moderate 4-6) Last Admin: 07/20/19 23:24 Dose: 1 tab Albuterol/Ipratropium (Duoneb 3.0-0.5 Mg/3 Ml) 3 ml NEB Q6H PRN PRN Reason: Wheezing Enoxaparin Sodium (Lovenox) 40 mg SUBCUT DAILY [facility] Lactated Ringer's (Ringers, Lactated) 1,000 mls @ 85 mls/hr IV ASDIRECTED [facility] Last Admin: 07/21/19 05:46 Dose: 85 mls/hr Levofloxacin/Dextrose 750 mg/ (Premix) 150 mls @ 100 mls/hr IV Q24H [facility] Metronidazole 500 mg/ Premix 100 mls @ 100 mls/hr IV Q8H [facility] Last Admin: 07/21/19 04:46 Dose: 100 mls/hr Insulin Glargine (Lantus) 8 unit SUBCUT BEDTIME [facility] Last Admin: 07/20/19 23:24 Dose: 8 units Insulin Human Lispro (Humalog) 0 unit SUBCUT QIDACANDBED [facility]; Protocol Morphine Sulfate (Morphine) 1 mg IVPUSH Q2H PRN PRN Reason: Pain (severe 7-10) Stop: 07/21/19 21:33 Nystatin (Nystatin Oral Syringe) 500,000 unit PO QID [facility] Ondansetron HCl (Zofran) 4 mg IVPUSH Q6H PRN PRN Reason: Nausea/Vomiting Senna/Docusate Sodium (Senna Plus) 1 tab PO BID PRN PRN Reason: Constipation Sodium Chloride (Saline Flush) 10 ml FLUSH ONETIME PRN PRN Reason: Keep Vein Open Last Admin: 07/20/19 19:52 Dose: 10 ml Discontinued Medications Hydromorphone HCl (Dilaudid) 0.5 mg IVPUSH ONETIME ONE Stop: 07/20/19 17:22 Last Admin: 07/20/19 17:35 Dose: 0.5 mg Sodium Chloride (Normal Saline) 1,000 mls @ 999 mls/hr IV ONETIME ONE Stop: 07/20/19 18:20 Last Admin: 07/20/19 17:34 Dose: 999 mls/hr Sodium Chloride (Normal Saline) 1,000 mls @ 999 mls/hr IV ONETIME ONE Stop: 07/20/19 19:16 Last Admin: 07/20/19 18:33 Dose: 999 mls/hr Levofloxacin/Dextrose 750 mg/ (Premix) 150 mls @ 100 mls/hr IV ONETIME ONE Stop: 07/20/19 22:01 Last Admin: 07/20/19 21:45 Dose: 100 mls/hr Metronidazole 500 mg/ Premix 100 mls @ 100 mls/hr IV ONETIME ONE Stop: 07/20/19 21:31 Last Admin: 07/20/19 20:47 Dose: 100 mls/hr Sodium Chloride (Normal Saline) 1,000 mls @ 150 mls/hr IV ONETIME ONE Stop: 07/21/19 03:15 Last Admin: 07/20/19 20:47 Dose: 150 mls/hr Lactated Ringer's (Ringers, Lactated) 1,000 mls @ 125 mls/hr IV ASDIRECTED [facility] Insulin Human Regular (Humulin R) 5 unit IV ONETIME ONE Stop: 07/20/19 18:17 Last Admin: 07/20/19 18:24 Dose: 5 unit Insulin Human Regular (Humulin R) 5 unit IV ONETIME ONE Stop: 07/20/19 20:17 Last Admin: 07/20/19 20:32 Dose: 5 unit Iopamidol (Isovue-300 (61%)) 100 ml IVPUSH ONETIME ONE Stop: 07/20/19 18:32 Last Admin: 07/20/19 19:52 Dose: 100 ml Ondansetron HCl (Zofran) 4 mg IVPUSH ONETIME ONE Stop: 07/20/19 17:22 Last Admin: 07/20/19 17:34 Dose: 4 mg Sodium Chloride (Saline Flush) 10 ml FLUSH ASDIRECTED PRN PRN Reason: Keep Vein Open Last Admin: 07/20/19 17:36 Dose: 10 ml - Exam Quality Assessment: DVT Prophylaxis General: Alert, Oriented, Cooperative, No Acute Distress HEENT: Pupils Equal, Pupils Reactive, Mucous Membr. Moist/[place] Neck: Supple, Trachea Midline Lungs: Clear to Auscultation, Normal Respiratory Effort Cardiovascular: Regular Rate, Regular Rhythm GI/Abdominal Exam: Soft, No Distention, Guarding, Tender (Left quadrants and epigastric region ), Abnormal Bowel Sounds (Female) Exam: Deferred Extremities: Normal Inspection, Normal Range of Motion, Non-Tender, No Pedal Edema Skin: Warm, Dry, Intact Neurological: No New Focal Deficit Psy/Mental Status: Alert, Normal Affect, Normal Mood Sepsis Event Note - Evaluation Sepsis Screening Result: No Definite Risk - Focused Exam Vital Signs: Vital Signs Temp Pulse Pulse Resp BP BP Pulse Ox 07/21/19 07:24 99.0 F 85 24 H 102/68 91 L 07/21/19 02:24 98.4 F 92 18 117/79 97 07/20/19 23:48 07/20/19 22:40 107 H 93 L 07/20/19 22:38 99.3 F 18 127/79 07/20/19 22:18 78 16 149/98 H 97 Pulse Ox Pulse Ox 07/21/19 07:24 07/21/19 02:24 07/20/19 23:48 96 96 07/20/19 22:40 07/20/19 22:38 07/20/19 22:18 Date Exam was Performed: 07/21/19 Time Exam was Performed: 12:55 - Problem List & Annotations (1) Diverticulitis SNOMED Code(s): 217985603 Code(s): K57.92 - DVTRCLI OF INTEST, PART UNSP, W/O PERF OR ABSCESS W/O BLEED Status: Acute Priority: High Current Visit: Yes (2) Hyperglycemia SNOMED Code(s): 22135240 Code(s): R73.9 - HYPERGLYCEMIA, UNSPECIFIED Status: Acute Priority: High Current Visit: Yes (3) Thrush, oral SNOMED Code(s): 84284504 Code(s): B37.0 - CANDIDAL STOMATITIS Status: Acute Priority: Medium Current Visit: Yes (4) COPD (chronic obstructive pulmonary disease) SNOMED Code(s): 44458568 Code(s): J44.9 - CHRONIC OBSTRUCTIVE PULMONARY DISEASE, UNSPECIFIED Status : Chronic Priority: Low Current Visit: Yes (5) Diabetes mellitus type II, non insulin dependent SNOMED Code(s): 45446532 Code(s): E11.9 - TYPE 2 DIABETES MELLITUS WITHOUT COMPLICATIONS Status: Chronic Priority: High Current Visit: Yes (6) Obstructive sleep apnea on CPAP SNOMED Code(s): 26904404 Code(s): G47.33 - OBSTRUCTIVE SLEEP APNEA (ADULT) (PEDIATRIC); Z99.89 - DEPENDENCE ON OTHER ENABLING MACHINES AND DEVICES Status: Chronic Priority: Low Current Visit: Yes (7) Severe obesity (BMI 35.0-35.9 with comorbidity) SNOMED Code(s): 88647508370532, 89763875591958 Code(s): E66.01 - MORBID (SEVERE) OBESITY DUE TO EXCESS CALORIES; Z68.35 - BODY MASS INDEX (BMI) 35.0-35.9, ADULT Status: Chronic Priority: Medium Current Visit: Yes (8) Hematochezia SNOMED Code(s): 727692071 Code(s): K92.1 - MELENA Status: Suspected Priority: Medium Current Visit: Yes (9) Elevated hemoglobin A1c SNOMED Code(s): 771860216 Code(s): R73.09 - OTHER ABNORMAL GLUCOSE Status: Acute Priority: High Current Visit: Yes - Problem List Review Problem List Initiated/Reviewed/Updated: Yes - My Orders Last 24 Hours: My Active Orders 07/21/19 07:29 Consult to Case Management/Furniture Reproducer [CONS] Routine Consult to Diabetic Nurse Specialist [CONS] Routine Consult to Transit Department Clerk [CONS] Routine 07/21/19 09:00 Enoxaparin [Lovenox] 40 mg SUBCUT DAILY 07/21/19 11:00 Insulin Lispro [HumaLOG] See Protocol SUBCUT QIDACANDBED 07/22/19 05:11 A1C [GLYCOSYLATED HEMOGLOBIN,HGBA1C] [CHEM] Routine BASIC METABOLIC PANEL,BMP [CHEM] AM CBC WITH AUTO DIFF [HEME] AM CRP [C-REACTIVE PROTEIN] [CHEM] AM MAGNESIUM [CHEM] AM 07/23/19 05:11 BASIC METABOLIC PANEL,BMP [CHEM] AM CBC WITH AUTO DIFF [HEME] AM CRP [C-REACTIVE PROTEIN] [CHEM] AM MAGNESIUM [CHEM] AM 07/24/19 05:11 BASIC METABOLIC PANEL,BMP [CHEM] AM CBC WITH AUTO DIFF [HEME] AM CRP [C-REACTIVE PROTEIN] [CHEM] AM MAGNESIUM [CHEM] AM 07/25/19 05:11 BASIC METABOLIC PANEL,BMP [CHEM] AM CBC WITH AUTO DIFF [HEME] AM CRP [C-REACTIVE PROTEIN] [CHEM] AM MAGNESIUM [CHEM] AM - Plan Plan:: Diverticulitis. CT scan reveals diverticulitis of sigmoid colon. WBC 10.94 with left shift. Patient is not able to tolerate oral intake due to pain and nausea. In ED was given levofloxacin 750mg IV x1, metronidazole 500mg IV x1, and Zofran 4mg IV x1. NS 1L bolus x3. Reports pain is about the same today. Has been up ambulating. The patient will be continued on maintenance fluids with LR running at 85ml/hr. Continue Levofloxacin 750mg IV q24 hours and metronidazole 500mg IV q8h. Zofran 4mg IV q6h as needed for nausea. Clear liquid diet today - tolerating well Ambulate Re-check CBC, CRP in AM Hyperglycemia, uncontrolled diabetes Type 2. Blood sugar 717 on first draw in ED. Pt was given Insulin R 5 units and NS 2L bolus, blood sugar decreased to 461. Pt given another NS 1L bolus NS and insulin R 5 units, blood sugar decreased to 300. CO2 normal, no ketones in urine. A1C >16. Patient has not been taking metformin due to nausea. Triglycerides 215, total cholesterol 116, LDL 61, HDL 27. Will hold home metformin. Continue fluid resuscitation as stated above. Continue Lantus 8 units SQ qhs Check Fingerstick blood glucose ACHS. Diabetes education. Transit Department Clerk consult. Medium dose SS insulin Re-check A1C in am to ensure no lab error CBC, BMP, Mg in AM. Hematochezia. H/H stable given fluids given Stool occult negative. Continue to monitor Diarrhea now 2/2 oral contrast Oral Thrush. Physical exam reveals white plaque on tongue and soft palate. Nystatin 500,000 units QID. Morbid obesity w/ comorbidities. BMI 37.6 Lipid panel as above Will discuss diet and exercise for weight loss. Transit Department Clerk consult. Obstructive Sleep Apnea. Continue patient on CPAP at night with home settings. Asthma. Not in acute exacerbation. O2 saturation >93% on RA. Duoneb nebulizer 3mL q6h as needed for wheezing. Hx Hypertension. Patient reports hypertension but is not on home medications for blood pressure. Will monitor. BP stable Hx Dyslipidemia. Patient reports high cholesterol but is not on statin. Lipid panel as above. Pain Control: Acetaminophen 650mg po Q6H PRN mild pain or fever, HYDROcodone 5/ 325mg PO Q6H PRN moderate pain, and morphine sulfate 1 mg IVP Q2H PRN chest pain or severe pain. Nausea: In case of nausea use Zofran 4mg IVP Q6H PRN nausea. DVT Prophylaxis: Lovenox GI Bleed Prophylaxis: Not indicated. Mylanta 30 mL q4h PRN indigestion. Constipation Prophylaxis: Docusate 100mg PO BID as needed for constipation. CODE STATUS: Full Code Disposition: Anticipated hospital stay is longer than 2 midnights.
[2019-07-21] MEDS: Acetaminophen/HYDROcodone 325-5 MG Tab PO PRN ×3 (08:10→18:11)
[2019-07-21] MEDS: Nystatin Susp 100,000 Unit/ML 5 ML Oral Syringe PO SCH ×4 (08:10→20:50)
[2019-07-21] MEDS ORDERED: Enoxaparin 40 MG/0.4 ML Syringe SUBCUT SCH (09:00)
[2019-07-21] MEDS ORDERED: Albuterol 6.7 GM Inhaler INH PRN (10:15)
[2019-07-21] MEDS: Amitriptyline 10 MG Tab PO SCH (11:17)
[2019-07-21] MEDS: FLUoxetine 20 MG Cap PO SCH (11:17)
[2019-07-21] MEDS: Gabapentin 100 MG Cap PO SCH (11:17)
[2019-07-21] MEDS: Insulin Lispro 100 Units/ML 3 ML Vial SUBCUT SCH ×3 (11:42→21:02)
[2019-07-21] MEDS: Insulin Glarg,Human.Rec.Analog 100 Unit/ML SUBCUT SCH (20:48)
[2019-07-21] MEDS: Acetaminophen 325 MG Tab PO PRN (21:00)
[2019-07-21] MEDS: Levofloxacin/Dextrose 5%-Water 750 MG in Premix Bag 1 BAG IV SCH (21:01)
[2019-07-22] MEDS: Acetaminophen/HYDROcodone 325-5 MG Tab PO PRN ×4 (00:20→21:06)
[2019-07-22] MEDS: Lactated Ringers 1,000 ML IV SCH (03:27)
[2019-07-22] MEDS: metroNIDAZOLE/Normal Saline 500 MG in Premix Bag 1 BAG IV SCH ×3 (04:55→21:09)
--- NOTE | 2019-07-22 07:24 | PCM.PN ---
- General Info Date of Service: 07/22/19 Admission Dx/Problem (Free Text): Admission Diagnosis/Problem Admission Diagnosis/Problem Diverticulitis of colon Functional Status: Reports: Pain Controlled (reports pain is worse today but tollerable ), Tolerating Diet (advanced to full liquids ), Ambulating, Urinating. Denies: New Symptoms - Review of Systems General: Reports: Appetite. Denies: Fever, Weakness, Fatigue, Malaise, Chills HEENT: Reports: Sore Throat (improving ). Denies: Headaches Pulmonary: Reports: No Symptoms. Denies: Shortness of Breath, Pleuritic Chest Pain, Cough, Sputum, Wheezing Cardiovascular: Reports: No Symptoms. Denies: Chest Pain, Palpitations, Dyspnea on Exertion, Edema Gastrointestinal: Reports: Abdominal Pain (LLQ>LUQ, Epigastric ), Hematochezia. Denies: Constipation, Diarrhea, Nausea, Vomiting Genitourinary: Reports: No Symptoms. Denies: Pain Musculoskeletal: Reports: No Symptoms Skin: Reports: No Symptoms. Denies: Cyanosis Neurological: Reports: No Symptoms. Denies: Confusion, Difficulty Walking, Gait Disturbance Psychiatric: Reports: No Symptoms - Patient Data Vitals - Most Recent: Last Vital Signs Temp 98.2 F 07/22/19 03:31 Pulse 78 07/22/19 03:31 Resp 18 07/22/19 03:31 BP 131/79 07/22/19 03:31 Pulse Ox 97 07/22/19 03:31 Weight - Most Recent: 194 lb 9.6 oz I&O - Last 24 Hours: Intake & Output 07/21/19 07/22/19 07/22/19 22:59 06:59 14:59 Intake Total 2455 1480 Output Total 750 1000 Balance 1705 480 Lab Results Last 24 Hours: Laboratory Results - last 24 hr 07/20/19 07/21/19 07/21/19 Range/Units 21:50 11:38 16:37 WBC (3.98-10.04) K/mm3 RBC (3.98-5.22) M/mm3 Hgb (11.2-15.7) gm/dl Hct (34.1-44.9) % MCV (79.4-94.8) fl MCH (25.6-32.2) pg MCHC (32.2-35.5) g/dl RDW Std Deviation (36.4-46.3) fL Plt Count (182-369) K/mm3 MPV (9.4-12.3) fl Neut % (Auto) (34.0-71.1) % Lymph % (Auto) (19.3-51.7) % [place] % (Auto) (4.7-12.5) % Eos % (Auto) (0.7-5.8) Baso % (Auto) (0.1-1.2) % Neut # (Auto) (1.56-6.13) K/mm3 Lymph # (Auto) (1.18-3.74) K/mm3 [place] # (Auto) (0.24-0.36) K/mm3 Eos # (Auto) (0.04-0.36) K/mm3 Baso # (Auto) (0.01-0.08) K/mm3 Sodium (136-145) mEq/L Potassium (3.5-5.1) mEq/L Chloride (98-107) mEq/L Carbon Dioxide (21-32) mEq/L Anion Gap (5-15) BUN (7-18) mg/dL Creatinine (0.55-1.02) mg/dL Est Cr Clr Drug Dosing mL/min Estimated GFR (MDRD) (>60) mL/min BUN/Creatinine Ratio (14-18) Glucose (74-106) mg/dL POC Glucose 272 H 287 H (70-105) mg/dL Calcium (8.5-10.1) mg/dL Phosphorus (2.6-4.7) mg/dL Magnesium (1.8-2.4) mg/dl C-Reactive Protein (<1.0) mg/dL Triglycerides 215 H (<150) mg/dL Cholesterol 116 (<200) mg/dL LDL Cholesterol Direct 61 (<100) mg/dL HDL Cholesterol 27.0 L (40-59) mg/dL 07/21/19 07/22/19 07/22/19 Range/Units 20:47 05:25 05:25 WBC 10.13 H (3.98-10.04) K/mm3 RBC 3.87 L (3.98-5.22) M/mm3 Hgb 12.3 (11.2-15.7) gm/dl Hct 38.9 (34.1-44.9) % MCV 100.5 H (79.4-94.8) fl MCH 31.8 (25.6-32.2) pg MCHC 31.6 L (32.2-35.5) g/dl RDW Std Deviation 47.4 H (36.4-46.3) fL Plt Count 270 (182-369) K/mm3 MPV 11.3 (9.4-12.3) fl Neut % (Auto) 69.3 (34.0-71.1) % Lymph % (Auto) 19.5 (19.3-51.7) % [place] % (Auto) 9.5 (4.7-12.5) % Eos % (Auto) 1.0 (0.7-5.8) Baso % (Auto) 0.3 (0.1-1.2) % Neut # (Auto) 7.02 H (1.56-6.13) K/mm3 Lymph # (Auto) 1.98 (1.18-3.74) K/mm3 [place] # (Auto) 0.96 H (0.24-0.36) K/mm3 Eos # (Auto) 0.10 (0.04-0.36) K/mm3 Baso # (Auto) 0.03 (0.01-0.08) K/mm3 Sodium 137 (136-145) mEq/L Potassium 3.5 (3.5-5.1) mEq/L Chloride 101 (98-107) mEq/L Carbon Dioxide 26 (21-32) mEq/L Anion Gap 13.5 (5-15) BUN 4 L (7-18) mg/dL Creatinine 0.6 (0.55-1.02) mg/dL Est Cr Clr Drug Dosing 75.20 mL/min Estimated GFR (MDRD) > 60 (>60) mL/min BUN/Creatinine Ratio 6.7 L (14-18) Glucose 241 H (74-106) mg/dL POC Glucose 241 H (70-105) mg/dL Calcium 7.7 L (8.5-10.1) mg/dL Phosphorus 1.9 L (2.6-4.7) mg/dL Magnesium 1.8 (1.8-2.4) mg/dl C-Reactive Protein 8.2 H* (<1.0) mg/dL Triglycerides (<150) mg/dL Cholesterol (<200) mg/dL LDL Cholesterol Direct (<100) mg/dL HDL Cholesterol (40-59) mg/dL 07/22/19 Range/Units 06:07 WBC (3.98-10.04) K/mm3 RBC (3.98-5.22) M/mm3 Hgb (11.2-15.7) gm/dl Hct (34.1-44.9) % MCV (79.4-94.8) fl MCH (25.6-32.2) pg MCHC (32.2-35.5) g/dl RDW Std Deviation (36.4-46.3) fL Plt Count (182-369) K/mm3 MPV (9.4-12.3) fl Neut % (Auto) (34.0-71.1) % Lymph % (Auto) (19.3-51.7) % [place] % (Auto) (4.7-12.5) % Eos % (Auto) (0.7-5.8) Baso % (Auto) (0.1-1.2) % Neut # (Auto) (1.56-6.13) K/mm3 Lymph # (Auto) (1.18-3.74) K/mm3 [place] # (Auto) (0.24-0.36) K/mm3 Eos # (Auto) (0.04-0.36) K/mm3 Baso # (Auto) (0.01-0.08) K/mm3 Sodium (136-145) mEq/L Potassium (3.5-5.1) mEq/L Chloride (98-107) mEq/L Carbon Dioxide (21-32) mEq/L Anion Gap (5-15) BUN (7-18) mg/dL Creatinine (0.55-1.02) mg/dL Est Cr Clr Drug Dosing mL/min Estimated GFR (MDRD) (>60) mL/min BUN/Creatinine Ratio (14-18) Glucose (74-106) mg/dL POC Glucose 219 H (70-105) mg/dL Calcium (8.5-10.1) mg/dL Phosphorus (2.6-4.7) mg/dL Magnesium (1.8-2.4) mg/dl C-Reactive Protein (<1.0) mg/dL Triglycerides (<150) mg/dL Cholesterol (<200) mg/dL LDL Cholesterol Direct (<100) mg/dL HDL Cholesterol (40-59) mg/dL [place] Results Last 24 Hours: Microbiology 07/21/19 06:10 Stool Occult Blood (DAMON) - Final Stool / Feces Med Orders - Current: Current Medications Acetaminophen (Tylenol) 650 mg PO Q4H PRN PRN Reason: Pain (Mild 1-3)/fever Last Admin: 07/21/19 21:00 Dose: 650 mg Hydrocodone Bitart/Acetaminophen ([place] 325-5 Mg) 1 tab PO Q4H PRN PRN Reason: Pain (moderate 4-6) Last Admin: 07/22/19 04:54 Dose: 1 tab Albuterol (Proventil Hfa) 0 gm INH Q6H PRN PRN Reason: shortnes of breath Albuterol/Ipratropium (Duoneb 3.0-0.5 Mg/3 Ml) 3 ml NEB Q6H PRN PRN Reason: Wheezing Amitriptyline HCl (Elavil) 10 mg PO DAILY [facility] Last Admin: 07/21/19 11:17 Dose: 10 mg Enoxaparin Sodium (Lovenox) 40 mg SUBCUT DAILY [facility] Fluoxetine HCl (Prozac) 40 mg PO DAILY [facility] Last Admin: 07/21/19 11:17 Dose: 40 mg Gabapentin (Neurontin) 100 mg PO DAILY [facility] Last Admin: 07/21/19 11:17 Dose: 100 mg Lactated Ringer's (Ringers, Lactated) 1,000 mls @ 85 mls/hr IV ASDIRECTED [facility] Last Admin: 07/22/19 03:27 Dose: 85 mls/hr Levofloxacin/Dextrose 750 mg/ (Premix) 150 mls @ 100 mls/hr IV Q24H [facility] Last Admin: 07/21/19 21:01 Dose: 100 mls/hr Metronidazole 500 mg/ Premix 100 mls @ 100 mls/hr IV Q8H [facility] Last Admin: 07/22/19 04:55 Dose: 100 mls/hr Potassium Phosphate 30 mmole/ (Sodium Chloride) 510 mls @ 102 mls/hr IV ASDIRECTED [facility] Stop: 07/22/19 12:29 Insulin Glargine (Lantus) 8 unit SUBCUT BEDTIME [facility] Last Admin: 07/21/19 20:48 Dose: 8 units Insulin Human Lispro (Humalog) 0 unit SUBCUT QIDACANDBED [facility]; Protocol Last Admin: 07/21/19 21:02 Dose: 4 units Nystatin (Nystatin Oral Syringe) 500,000 unit PO QID [facility] Last Admin: 07/21/19 20:50 Dose: 500,000 unit Ondansetron HCl (Zofran) 4 mg IVPUSH Q6H PRN PRN Reason: Nausea/Vomiting Senna/Docusate Sodium (Senna Plus) 1 tab PO BID PRN PRN Reason: Constipation Sodium Chloride (Saline Flush) 10 ml FLUSH ONETIME PRN PRN Reason: Keep Vein Open Last Admin: 07/20/19 19:52 Dose: 10 ml Discontinued Medications Enoxaparin Sodium (Lovenox) 40 mg SUBCUT DAILY [facility] Last Admin: 07/21/19 08:10 Dose: 40 mg Hydromorphone HCl (Dilaudid) 0.5 mg IVPUSH ONETIME ONE Stop: 07/20/19 17:22 Last Admin: 07/20/19 17:35 Dose: 0.5 mg Sodium Chloride (Normal Saline) 1,000 mls @ 999 mls/hr IV ONETIME ONE Stop: 07/20/19 18:20 Last Admin: 07/20/19 17:34 Dose: 999 mls/hr Sodium Chloride (Normal Saline) 1,000 mls @ 999 mls/hr IV ONETIME ONE Stop: 07/20/19 19:16 Last Admin: 07/20/19 18:33 Dose: 999 mls/hr Levofloxacin/Dextrose 750 mg/ (Premix) 150 mls @ 100 mls/hr IV ONETIME ONE Stop: 07/20/19 22:01 Last Admin: 07/20/19 21:45 Dose: 100 mls/hr Metronidazole 500 mg/ Premix 100 mls @ 100 mls/hr IV ONETIME ONE Stop: 07/20/19 21:31 Last Admin: 07/20/19 20:47 Dose: 100 mls/hr Sodium Chloride (Normal Saline) 1,000 mls @ 150 mls/hr IV ONETIME ONE Stop: 07/21/19 03:15 Last Admin: 07/20/19 20:47 Dose: 150 mls/hr Lactated Ringer's (Ringers, Lactated) 1,000 mls @ 125 mls/hr IV ASDIRECTED [facility] Insulin Human Regular (Humulin R) 5 unit IV ONETIME ONE Stop: 07/20/19 18:17 Last Admin: 07/20/19 18:24 Dose: 5 unit Insulin Human Regular (Humulin R) 5 unit IV ONETIME ONE Stop: 07/20/19 20:17 Last Admin: 07/20/19 20:32 Dose: 5 unit Iopamidol (Isovue-300 (61%)) 100 ml IVPUSH ONETIME ONE Stop: 07/20/19 18:32 Last Admin: 07/20/19 19:52 Dose: 100 ml Morphine Sulfate (Morphine) 1 mg IVPUSH Q2H PRN PRN Reason: Pain (severe 7-10) Stop: 07/21/19 21:33 Ondansetron HCl (Zofran) 4 mg IVPUSH ONETIME ONE Stop: 07/20/19 17:22 Last Admin: 07/20/19 17:34 Dose: 4 mg Sodium Chloride (Saline Flush) 10 ml FLUSH ASDIRECTED PRN PRN Reason: Keep Vein Open Last Admin: 07/20/19 17:36 Dose: 10 ml - Exam Quality Assessment: DVT Prophylaxis General: Alert, Oriented, Cooperative, No Acute Distress HEENT: Pupils Equal, Pupils Reactive, Mucous Membr. Moist/[place], Other ( improving white patches in mouth consistent with oral thrush) Neck: Supple, Trachea Midline Lungs: Clear to Auscultation, Normal Respiratory Effort Cardiovascular: Regular Rate, Regular Rhythm GI/Abdominal Exam: Normal Bowel Sounds, Soft, No Distention, Tender (LLQ>LUQ, epigastric region ) (Female) Exam: Deferred Back Exam: Normal Inspection, Full Range of Motion Extremities: Normal Inspection, Normal Range of Motion, Non-Tender, No Pedal Edema Skin: Warm, Dry, Intact Neurological: No New Focal Deficit Psy/Mental Status: Alert, Normal Affect, Normal Mood Sepsis Event Note - Evaluation Sepsis Screening Result: No Definite Risk - Focused Exam Vital Signs: Vital Signs Temp Pulse Resp BP Pulse Ox 07/22/19 03:31 98.2 F 78 18 131/79 97 07/22/19 00:22 98.2 F 70 20 101/79 95 07/21/19 20:44 98.8 F 84 18 117/80 95 Date Exam was Performed: 07/22/19 Time Exam was Performed: 10:45 - Problem List & Annotations (1) Diverticulitis SNOMED Code(s): 804786757 Code(s): K57.92 - DVTRCLI OF INTEST, PART UNSP, W/O PERF OR ABSCESS W/O BLEED Status: Acute Priority: High Current Visit: Yes (2) Hyperglycemia SNOMED Code(s): 89113857 Code(s): R73.9 - HYPERGLYCEMIA, UNSPECIFIED Status: Acute Priority: High Current Visit: Yes (3) Thrush, oral SNOMED Code(s): 56017918 Code(s): B37.0 - CANDIDAL STOMATITIS Status: Acute Priority: Medium Current Visit: Yes (4) COPD (chronic obstructive pulmonary disease) SNOMED Code(s): 01718542 Code(s): J44.9 - CHRONIC OBSTRUCTIVE PULMONARY DISEASE, UNSPECIFIED Status : Chronic Priority: Low Current Visit: Yes (5) Diabetes mellitus type II, non insulin dependent SNOMED Code(s): 52206774 Code(s): E11.9 - TYPE 2 DIABETES MELLITUS WITHOUT COMPLICATIONS Status: Chronic Priority: High Current Visit: Yes (6) Obstructive sleep apnea on CPAP SNOMED Code(s): 85561723 Code(s): G47.33 - OBSTRUCTIVE SLEEP APNEA (ADULT) (PEDIATRIC); Z99.89 - DEPENDENCE ON OTHER ENABLING MACHINES AND DEVICES Status: Chronic Priority: Low Current Visit: Yes (7) Severe obesity (BMI 35.0-35.9 with comorbidity) SNOMED Code(s): 38159716074424, 51964718701139 Code(s): E66.01 - MORBID (SEVERE) OBESITY DUE TO EXCESS CALORIES; Z68.35 - BODY MASS INDEX (BMI) 35.0-35.9, ADULT Status: Chronic Priority: Medium Current Visit: Yes (8) Hematochezia SNOMED Code(s): 165277926 Code(s): K92.1 - MELENA Status: Suspected Priority: Medium Current Visit: Yes (9) Elevated hemoglobin A1c SNOMED Code(s): 325912114 Code(s): R73.09 - OTHER ABNORMAL GLUCOSE Status: Acute Priority: High Current Visit: Yes - Problem List Review Problem List Initiated/Reviewed/Updated: Yes - My Orders Last 24 Hours: My Active Orders 07/21/19 07:29 Consult to Case Management/Assistant Professor Of Biochemistry [CONS] Routine Consult to Diabetic Nurse Specialist [CONS] Routine Consult to Property Claims Adjuster [CONS] Routine 07/21/19 10:15 Albuterol [Proventil HFA] 0 gm INH Q6H PRN Amitriptyline [Elavil] 10 mg PO DAILY FLUoxetine [PROzac] 40 mg PO DAILY Gabapentin [Neurontin] 100 mg PO DAILY 07/21/19 11:00 Insulin Lispro [HumaLOG] See Protocol SUBCUT QIDACANDBED 07/22/19 05:25 A1C [GLYCOSYLATED HEMOGLOBIN,HGBA1C] [CHEM] Routine 07/22/19 07:30 Potassium Phosphates 30 mmole Sodium Chloride 0.9% [Normal Saline] 500 ml IV ASDIRECTED 07/22/19 09:00 Enoxaparin [Lovenox] 40 mg SUBCUT DAILY 07/23/19 05:11 BASIC METABOLIC PANEL,BMP [CHEM] AM CBC WITH AUTO DIFF [HEME] AM CRP [C-REACTIVE PROTEIN] [CHEM] AM MAGNESIUM [CHEM] AM 07/24/19 05:11 BASIC METABOLIC PANEL,BMP [CHEM] AM CBC WITH AUTO DIFF [HEME] AM CRP [C-REACTIVE PROTEIN] [CHEM] AM MAGNESIUM [CHEM] AM 07/25/19 05:11 BASIC METABOLIC PANEL,BMP [CHEM] AM CBC WITH AUTO DIFF [HEME] AM CRP [C-REACTIVE PROTEIN] [CHEM] AM MAGNESIUM [CHEM] AM - Plan Plan:: Diverticulitis. CT scan reveals diverticulitis of sigmoid colon. WBC 10.94 with left shift. Patient is not able to tolerate oral intake due to pain and nausea. In ED was given levofloxacin 750mg IV x1, metronidazole 500mg IV x1, and Zofran 4mg IV x1. NS 1L bolus x3. Reports pain is about the same today. Has been up ambulating. Discontinue IV fluids as the patient is eating and drinking well. Continue Levofloxacin 750mg IV q24 hours and metronidazole 500mg IV q8h. Zofran 4mg IV q6h as needed for nausea. Advanced to full liquid diet today. Reports pain does not get worse or better with diet Ambulate Re-check CBC, CRP in AM Hyperglycemia, uncontrolled diabetes Type 2. Blood sugar 717 on first draw in ED. Pt was given Insulin R 5 units and NS 2L bolus, blood sugar decreased to 461. Pt given another NS 1L bolus NS and insulin R 5 units, blood sugar decreased to 300. CO2 normal, no ketones in urine. A1C >16. Patient has not been taking metformin due to nausea. Triglycerides 215, total cholesterol 116, LDL 61, HDL 27. Repeat A1C for verification 13.4% BS trend today 287-219 Will hold home metformin. Increase Lantus 8 units to 10 unitsSQ qhs Check Fingerstick blood glucose ACHS. Diabetes education. Property Claims Adjuster consult. Medium dose SS insulin Start Humalog insulin 2 units TIDAC Will likely be influenced by Levaquin treatment. CBC, BMP, Mg in AM. Hematochezia. H/H stable given amount of fluids given Stool occult negative. Continue to monitor Reports some BRBPR today Oral Thrush. Physical exam reveals white plaque on tongue and soft palate. Nystatin 500,000 units QID. Morbid obesity w/ comorbidities. BMI 37.6 Lipid panel as above Will discuss diet and exercise for weight loss. Property Claims Adjuster consult. Obstructive Sleep Apnea. Continue patient on CPAP at night with home settings. Asthma. Not in acute exacerbation. O2 saturation >93% on RA. Duoneb nebulizer 3mL q6h as needed for wheezing. Hx Hypertension. Patient reports hypertension but is not on home medications for blood pressure. Will monitor. BP stable Hx Dyslipidemia. Patient reports high cholesterol but is not on statin. Lipid panel as above. Pain Control: Acetaminophen 650mg po Q6H PRN mild pain or fever, HYDROcodone 5/ 325mg PO Q6H PRN moderate pain, and morphine sulfate 1 mg IVP Q2H PRN chest pain or severe pain. Nausea: In case of nausea use Zofran 4mg IVP Q6H PRN nausea. DVT Prophylaxis: Lovenox GI Bleed Prophylaxis: Not indicated. Mylanta 30 mL q4h PRN indigestion. Constipation Prophylaxis: Docusate 100mg PO BID as needed for constipation. CODE STATUS: Full Code Disposition: Anticipate at least 2 more days.
[2019-07-22 08:14] LABS: HEMOGLOBIN A1C 13.4 % (4.50-6.20)
[2019-07-22] MEDS ORDERED: Potassium Phosphates 30 MMOLE in Sodium Chloride 0.9% 500 ML IV ONE (08:30)
[2019-07-22] MEDS: FLUoxetine 20 MG Cap PO SCH (08:37)
[2019-07-22] MEDS: Enoxaparin 40 MG/0.4 ML Syringe SUBCUT SCH (08:37)
[2019-07-22] MEDS: Nystatin Susp 100,000 Unit/ML 5 ML Oral Syringe PO SCH ×4 (08:37→21:06)
[2019-07-22] MEDS: Gabapentin 100 MG Cap PO SCH (08:38)
[2019-07-22] MEDS: Amitriptyline 10 MG Tab PO SCH (08:38)
[2019-07-22] MEDS: Insulin Lispro 100 Units/ML 3 ML Vial SUBCUT SCH ×6 (08:40→22:13)
[2019-07-22] MEDS: Acetaminophen 325 MG Tab PO PRN ×2 (08:48→16:57)
[2019-07-22] MEDS: Insulin Glarg,Human.Rec.Analog 100 Unit/ML SUBCUT SCH (21:12)
[2019-07-22] MEDS: Levofloxacin/Dextrose 5%-Water 750 MG in Premix Bag 1 BAG IV SCH (22:10)
[2019-07-23] MEDS: Acetaminophen/HYDROcodone 325-5 MG Tab PO PRN ×4 (02:49→21:33)
[2019-07-23] MEDS: metroNIDAZOLE/Normal Saline 500 MG in Premix Bag 1 BAG IV SCH (06:15)
[2019-07-23] MEDS: Acetaminophen 325 MG Tab PO PRN (06:57)
[2019-07-23] MEDS ORDERED: Magnesium Sulfate/Water 2 GM in Premix Bag 1 BAG IV ONE (08:00)
[2019-07-23] MEDS: FLUoxetine 20 MG Cap PO SCH (08:50)
[2019-07-23] MEDS: Amitriptyline 10 MG Tab PO SCH (08:51)
[2019-07-23] MEDS: Nystatin Susp 100,000 Unit/ML 5 ML Oral Syringe PO SCH ×4 (08:52→21:02)
[2019-07-23] MEDS: Gabapentin 100 MG Cap PO SCH (08:52)
[2019-07-23] MEDS: Enoxaparin 40 MG/0.4 ML Syringe SUBCUT SCH (08:53)
[2019-07-23] MEDS: Insulin Lispro 100 Units/ML 3 ML Vial SUBCUT SCH ×7 (09:14→21:33)
--- NOTE | 2019-07-23 11:00 | PCM.PN ---
- General Info Date of Service: 07/23/19 Admission Dx/Problem (Free Text): Admission Diagnosis/Problem Admission Diagnosis/Problem Diverticulitis of colon Functional Status: Reports: Pain Controlled, Tolerating Diet, Ambulating, Urinating. Denies: New Symptoms - Review of Systems General: Reports: No Symptoms. Denies: Fever, Weakness, Fatigue, Malaise, Chills HEENT: Reports: No Symptoms. Denies: Headaches, Sore Throat Pulmonary: Reports: No Symptoms. Denies: Shortness of Breath, Pleuritic Chest Pain, Cough, Sputum, Wheezing Cardiovascular: Reports: No Symptoms. Denies: Chest Pain, Palpitations, Edema Gastrointestinal: Reports: Abdominal Pain, Constipation. Denies: Diarrhea, Nausea, Vomiting Genitourinary: Reports: No Symptoms. Denies: Pain Musculoskeletal: Reports: No Symptoms Skin: Reports: No Symptoms. Denies: Cyanosis Neurological: Reports: No Symptoms. Denies: Confusion, Difficulty Walking, Gait Disturbance Psychiatric: Reports: No Symptoms - Patient Data Vitals - Most Recent: Last Vital Signs Temp 99.1 F 07/23/19 02:42 Pulse 77 07/23/19 02:42 Resp 16 07/23/19 02:42 BP 114/81 07/23/19 02:42 Pulse Ox 94 L 07/23/19 02:42 Weight - Most Recent: 195 lb 3.2 oz I&O - Last 24 Hours: Intake & Output 07/22/19 07/23/19 07/23/19 22:59 06:59 14:59 Intake Total 2720 450 Output Total 1500 Balance 2720 -1050 Lab Results Last 24 Hours: Laboratory Results - last 24 hr 07/22/19 07/22/19 07/22/19 Range/Units 11:38 17:00 21:08 WBC (3.98-10.04) K/mm3 RBC (3.98-5.22) M/mm3 Hgb (11.2-15.7) gm/dl Hct (34.1-44.9) % MCV (79.4-94.8) fl MCH (25.6-32.2) pg MCHC (32.2-35.5) g/dl RDW Std Deviation (36.4-46.3) fL Plt Count (182-369) K/mm3 MPV (9.4-12.3) fl Neut % (Auto) (34.0-71.1) % Lymph % (Auto) (19.3-51.7) % [place] % (Auto) (4.7-12.5) % Eos % (Auto) (0.7-5.8) Baso % (Auto) (0.1-1.2) % Neut # (Auto) (1.56-6.13) K/mm3 Lymph # (Auto) (1.18-3.74) K/mm3 [place] # (Auto) (0.24-0.36) K/mm3 Eos # (Auto) (0.04-0.36) K/mm3 Baso # (Auto) (0.01-0.08) K/mm3 Sodium (136-145) mEq/L Potassium (3.5-5.1) mEq/L Chloride (98-107) mEq/L Carbon Dioxide (21-32) mEq/L Anion Gap (5-15) BUN (7-18) mg/dL Creatinine (0.55-1.02) mg/dL Est Cr Clr Drug Dosing mL/min Estimated GFR (MDRD) (>60) mL/min BUN/Creatinine Ratio (14-18) Glucose (74-106) mg/dL POC Glucose 220 H 245 H 215 H (70-105) mg/dL Calcium (8.5-10.1) mg/dL Magnesium (1.8-2.4) mg/dl C-Reactive Protein (<1.0) mg/dL 07/23/19 07/23/19 07/23/19 Range/Units 05:40 05:40 06:04 WBC 10.37 H (3.98-10.04) K/mm3 RBC 4.12 (3.98-5.22) M/mm3 Hgb 12.8 (11.2-15.7) gm/dl Hct 41.4 (34.1-44.9) % MCV 100.5 H (79.4-94.8) fl MCH 31.1 (25.6-32.2) pg MCHC 30.9 L (32.2-35.5) g/dl RDW Std Deviation 48.2 H (36.4-46.3) fL Plt Count 291 (182-369) K/mm3 MPV 10.9 (9.4-12.3) fl Neut % (Auto) 68.3 (34.0-71.1) % Lymph % (Auto) 20.1 (19.3-51.7) % [place] % (Auto) 9.5 (4.7-12.5) % Eos % (Auto) 1.1 (0.7-5.8) Baso % (Auto) 0.3 (0.1-1.2) % Neut # (Auto) 7.09 H (1.56-6.13) K/mm3 Lymph # (Auto) 2.08 (1.18-3.74) K/mm3 [place] # (Auto) 0.99 H (0.24-0.36) K/mm3 Eos # (Auto) 0.11 (0.04-0.36) K/mm3 Baso # (Auto) 0.03 (0.01-0.08) K/mm3 Sodium 138 (136-145) mEq/L Potassium 3.6 (3.5-5.1) mEq/L Chloride 104 (98-107) mEq/L Carbon Dioxide 27 (21-32) mEq/L Anion Gap 10.6 (5-15) BUN 3 L (7-18) mg/dL Creatinine 0.6 (0.55-1.02) mg/dL Est Cr Clr Drug Dosing 75.20 mL/min Estimated GFR (MDRD) > 60 (>60) mL/min BUN/Creatinine Ratio 5.0 L (14-18) Glucose 217 H (74-106) mg/dL POC Glucose 183 H (70-105) mg/dL Calcium 8.0 L (8.5-10.1) mg/dL Magnesium 1.7 L (1.8-2.4) mg/dl C-Reactive Protein 12.5 H* (<1.0) mg/dL Med Orders - Current: Current Medications Acetaminophen (Tylenol) 650 mg PO Q4H PRN PRN Reason: Pain (Mild 1-3)/fever Last Admin: 07/23/19 06:57 Dose: 650 mg Hydrocodone Bitart/Acetaminophen ([place] 325-5 Mg) 1 tab PO Q4H PRN PRN Reason: Pain (moderate 4-6) Last Admin: 07/23/19 02:49 Dose: 1 tab Albuterol (Proventil Hfa) 0 gm INH Q6H PRN PRN Reason: shortnes of breath Albuterol/Ipratropium (Duoneb 3.0-0.5 Mg/3 Ml) 3 ml NEB Q6H PRN PRN Reason: Wheezing Amitriptyline HCl (Elavil) 10 mg PO DAILY [facility] Last Admin: 07/23/19 08:51 Dose: 10 mg Enoxaparin Sodium (Lovenox) 40 mg SUBCUT DAILY [facility] Last Admin: 07/23/19 08:53 Dose: 40 mg Fluoxetine HCl (Prozac) 40 mg PO DAILY [facility] Last Admin: 07/23/19 08:50 Dose: 40 mg Gabapentin (Neurontin) 100 mg PO DAILY [facility] Last Admin: 07/23/19 08:52 Dose: 100 mg Levofloxacin/Dextrose 750 mg/ (Premix) 150 mls @ 100 mls/hr IV Q24H [facility] Last Admin: 07/22/19 22:10 Dose: 100 mls/hr Metronidazole 500 mg/ Premix 100 mls @ 100 mls/hr IV Q8H [facility] Last Admin: 07/23/19 06:15 Dose: 100 mls/hr Insulin Glargine (Lantus) 10 unit SUBCUT BEDTIME [facility] Last Admin: 07/22/19 21:12 Dose: 10 units Insulin Human Lispro (Humalog) 0 unit SUBCUT QIDACANDBED [facility]; Protocol Last Admin: 07/23/19 09:14 Dose: 2 units Insulin Human Lispro (Humalog) 4 unit SUBCUT TIDAC [facility] Nystatin (Nystatin Oral Syringe) 500,000 unit PO QID [facility] Last Admin: 07/23/19 08:52 Dose: 500,000 unit Ondansetron HCl (Zofran) 4 mg IVPUSH Q6H PRN PRN Reason: Nausea/Vomiting Senna/Docusate Sodium (Senna Plus) 1 tab PO BID PRN PRN Reason: Constipation Sodium Chloride (Saline Flush) 10 ml FLUSH ONETIME PRN PRN Reason: Keep Vein Open Last Admin: 07/20/19 19:52 Dose: 10 ml Discontinued Medications Enoxaparin Sodium (Lovenox) 40 mg SUBCUT DAILY [facility] Last Admin: 07/21/19 08:10 Dose: 40 mg Hydromorphone HCl (Dilaudid) 0.5 mg IVPUSH ONETIME ONE Stop: 07/20/19 17:22 Last Admin: 07/20/19 17:35 Dose: 0.5 mg Sodium Chloride (Normal Saline) 1,000 mls @ 999 mls/hr IV ONETIME ONE Stop: 07/20/19 18:20 Last Admin: 07/20/19 17:34 Dose: 999 mls/hr Sodium Chloride (Normal Saline) 1,000 mls @ 999 mls/hr IV ONETIME ONE Stop: 07/20/19 19:16 Last Admin: 07/20/19 18:33 Dose: 999 mls/hr Levofloxacin/Dextrose 750 mg/ (Premix) 150 mls @ 100 mls/hr IV ONETIME ONE Stop: 07/20/19 22:01 Last Admin: 07/20/19 21:45 Dose: 100 mls/hr Metronidazole 500 mg/ Premix 100 mls @ 100 mls/hr IV ONETIME ONE Stop: 07/20/19 21:31 Last Admin: 07/20/19 20:47 Dose: 100 mls/hr Sodium Chloride (Normal Saline) 1,000 mls @ 150 mls/hr IV ONETIME ONE Stop: 07/21/19 03:15 Last Admin: 07/20/19 20:47 Dose: 150 mls/hr Lactated Ringer's (Ringers, Lactated) 1,000 mls @ 125 mls/hr IV ASDIRECTED [facility] Lactated Ringer's (Ringers, Lactated) 1,000 mls @ 85 mls/hr IV ASDIRECTED [facility] Last Admin: 07/22/19 03:27 Dose: 85 mls/hr Potassium Phosphate 30 mmole/ (Sodium Chloride) 510 mls @ 102 mls/hr IV ONETIME ONE Stop: 07/22/19 13:29 Last Admin: 07/22/19 08:41 Dose: 102 mls/hr Magnesium Sulfate 2 gm/ Premix 50 mls @ 25 mls/hr IV ONETIME ONE Stop: 07/23/19 09:59 Last Admin: 07/23/19 08:34 Dose: 25 mls/hr Insulin Glargine (Lantus) 8 unit SUBCUT BEDTIME [facility] Last Admin: 07/21/19 20:48 Dose: 8 units Insulin Human Lispro (Humalog) 2 unit SUBCUT TIDAC [facility] Last Admin: 07/23/19 09:26 Dose: 2 units Insulin Human Regular (Humulin R) 5 unit IV ONETIME ONE Stop: 07/20/19 18:17 Last Admin: 07/20/19 18:24 Dose: 5 unit Insulin Human Regular (Humulin R) 5 unit IV ONETIME ONE Stop: 07/20/19 20:17 Last Admin: 07/20/19 20:32 Dose: 5 unit Iopamidol (Isovue-300 (61%)) 100 ml IVPUSH ONETIME ONE Stop: 07/20/19 18:32 Last Admin: 07/20/19 19:52 Dose: 100 ml Morphine Sulfate (Morphine) 1 mg IVPUSH Q2H PRN PRN Reason: Pain (severe 7-10) Stop: 07/21/19 21:33 Ondansetron HCl (Zofran) 4 mg IVPUSH ONETIME ONE Stop: 07/20/19 17:22 Last Admin: 07/20/19 17:34 Dose: 4 mg Sodium Chloride (Saline Flush) 10 ml FLUSH ASDIRECTED PRN PRN Reason: Keep Vein Open Last Admin: 07/20/19 17:36 Dose: 10 ml - Exam Quality Assessment: DVT Prophylaxis General: Alert, Oriented, Cooperative, No Acute Distress HEENT: Pupils Equal, Pupils Reactive, Mucous Membr. Moist/[place] Neck: Supple, Trachea Midline Lungs: Clear to Auscultation, Normal Respiratory Effort Cardiovascular: Regular Rate, Regular Rhythm GI/Abdominal Exam: Normal Bowel Sounds, Soft, No Distention, Tender (Lower quadrants ) (Female) Exam: Deferred Back Exam: Normal Inspection, Full Range of Motion Extremities: Normal Inspection, Normal Range of Motion, Non-Tender, No Pedal Edema, Normal Capillary Refill Skin: Warm, Dry, Intact Neurological: No New Focal Deficit Psy/Mental Status: Alert, Normal Affect, Normal Mood Sepsis Event Note - Evaluation Sepsis Screening Result: No Definite Risk - Focused Exam Vital Signs: Vital Signs Temp Pulse Resp BP Pulse Ox 07/23/19 02:42 99.1 F 77 16 114/81 94 L 07/22/19 23:41 99.0 F 76 16 112/70 95 Date Exam was Performed: 07/23/19 Time Exam was Performed: 13:14 - Problem List & Annotations (1) Diverticulitis SNOMED Code(s): 715073833 Code(s): K57.92 - DVTRCLI OF INTEST, PART UNSP, W/O PERF OR ABSCESS W/O BLEED Status: Acute Priority: High Current Visit: Yes (2) Hyperglycemia SNOMED Code(s): 09044783 Code(s): R73.9 - HYPERGLYCEMIA, UNSPECIFIED Status: Acute Priority: High Current Visit: Yes (3) Thrush, oral SNOMED Code(s): 33411326 Code(s): B37.0 - CANDIDAL STOMATITIS Status: Acute Priority: Medium Current Visit: Yes (4) COPD (chronic obstructive pulmonary disease) SNOMED Code(s): 95886578 Code(s): J44.9 - CHRONIC OBSTRUCTIVE PULMONARY DISEASE, UNSPECIFIED Status : Chronic Priority: Low Current Visit: Yes (5) Diabetes mellitus type II, non insulin dependent SNOMED Code(s): 14134944 Code(s): E11.9 - TYPE 2 DIABETES MELLITUS WITHOUT COMPLICATIONS Status: Chronic Priority: High Current Visit: Yes (6) Obstructive sleep apnea on CPAP SNOMED Code(s): 41687489 Code(s): G47.33 - OBSTRUCTIVE SLEEP APNEA (ADULT) (PEDIATRIC); Z99.89 - DEPENDENCE ON OTHER ENABLING MACHINES AND DEVICES Status: Chronic Priority: Low Current Visit: Yes (7) Severe obesity (BMI 35.0-35.9 with comorbidity) SNOMED Code(s): 24011338984428, 13028472105822 Code(s): E66.01 - MORBID (SEVERE) OBESITY DUE TO EXCESS CALORIES; Z68.35 - BODY MASS INDEX (BMI) 35.0-35.9, ADULT Status: Chronic Priority: Medium Current Visit: Yes (8) Hematochezia SNOMED Code(s): 196579531 Code(s): K92.1 - MELENA Status: Suspected Priority: Medium Current Visit: Yes (9) Elevated hemoglobin A1c SNOMED Code(s): 354884066 Code(s): R73.09 - OTHER ABNORMAL GLUCOSE Status: Acute Priority: High Current Visit: Yes - Problem List Review Problem List Initiated/Reviewed/Updated: Yes - My Orders Last 24 Hours: My Active Orders 07/22/19 21:00 Insulin Glarg,Human.Rec.Analog [LantUS] 10 unit SUBCUT BEDTIME 07/22/19 Lunch Full Liquid Diet [DIET] 07/23/19 11:00 Insulin Lispro [HumaLOG] 4 unit SUBCUT TIDAC 07/24/19 05:11 BASIC METABOLIC PANEL,BMP [CHEM] AM CBC WITH AUTO DIFF [HEME] AM CRP [C-REACTIVE PROTEIN] [CHEM] AM MAGNESIUM [CHEM] AM 07/25/19 05:11 BASIC METABOLIC PANEL,BMP [CHEM] AM CBC WITH AUTO DIFF [HEME] AM CRP [C-REACTIVE PROTEIN] [CHEM] AM MAGNESIUM [CHEM] AM - Plan Plan:: Diverticulitis. CT scan reveals diverticulitis of sigmoid colon. WBC 10.94 with left shift. Patient is not able to tolerate oral intake due to pain and nausea. In ED was given levofloxacin 750mg IV x1, metronidazole 500mg IV x1, and Zofran 4mg IV x1. NS 1L bolus x3. Reports pain is about the same today. Has been up ambulating. Switch antibiotics to PO Levofloxacin 750mg q24 hours and metronidazole 500mg q8h. Zofran 4mg IV q6h as needed for nausea. Advanced to soft diet today. Reports pain does not get worse or better with diet Ambulate Suspect underlying constipation. Will order soapsuds enema with mineral oil. Re-check CBC, CRP in AM Check G/C to r/o oophoritis Hyperglycemia, uncontrolled diabetes Type 2. Blood sugar 717 on first draw in ED. Pt was given Insulin R 5 units and NS 2L bolus, blood sugar decreased to 461. Pt given another NS 1L bolus NS and insulin R 5 units, blood sugar decreased to 300. CO2 normal, no ketones in urine. A1C >16. Patient has not been taking metformin due to nausea. Triglycerides 215, total cholesterol 116, LDL 61, HDL 27. Repeat A1C for verification 13.4% BS trend today 217-183 Will continue to hold home metformin. Continue 10 units lantus at bedtime Check Fingerstick blood glucose ACHS. Diabetes education. Forensic Examiner consult. Medium dose SS insulin Increase Humalog insulin from 2 units TIDAC to 4 units TIDAC Will likely be influenced by Levaquin treatment. CBC, BMP, Mg in AM. Hematochezia. H/H stable given amount of fluids given Stool occult negative. Continue to monitor Oral Thrush. Physical exam reveals white plaque on tongue and soft palate. Nystatin 500,000 units QID. Morbid obesity w/ comorbidities. BMI 37.6 Lipid panel as above Will discuss diet and exercise for weight loss. Forensic Examiner consult. Obstructive Sleep Apnea. Continue patient on CPAP at night with home settings. Asthma. Not in acute exacerbation. O2 saturation >93% on RA. Duoneb nebulizer 3mL q6h as needed for wheezing. Hx Hypertension. Patient reports hypertension but is not on home medications for blood pressure. Will monitor. BP stable Hx Dyslipidemia. Patient reports high cholesterol but is not on statin. Lipid panel as above. Pain Control: Acetaminophen 650mg po Q6H PRN mild pain or fever, HYDROcodone 5/ 325mg PO Q6H PRN moderate pain, and morphine sulfate 1 mg IVP Q2H PRN chest pain or severe pain. Nausea: In case of nausea use Zofran 4mg IVP Q6H PRN nausea. DVT Prophylaxis: Lovenox GI Bleed Prophylaxis: Not indicated. Mylanta 30 mL q4h PRN indigestion. Constipation Prophylaxis: Docusate 100mg PO BID as needed for constipation. CODE STATUS: Full Code Disposition: Anticipate at least 2 more days.
[2019-07-23] MEDS: metroNIDAZOLE 500 MG Tab PO SCH ×2 (14:22→21:02)
[2019-07-23] MEDS: Levofloxacin 750 MG Tab PO SCH (14:22)
[2019-07-23] MEDS: Insulin Glarg,Human.Rec.Analog 100 Unit/ML SUBCUT SCH (21:02)
[2019-07-23 23:58] LABS: C. TRACHOMATIS BY PCR NOT DETECTED; N. GONORRHOEAE BY PCR NOT DETECTED
[2019-07-24] MEDS: Acetaminophen/HYDROcodone 325-5 MG Tab PO PRN ×4 (03:07→21:45)
[2019-07-24] MEDS: metroNIDAZOLE 500 MG Tab PO SCH ×3 (05:32→21:45)
[2019-07-24] MEDS: Acetaminophen 325 MG Tab PO PRN (05:32)
--- NOTE | 2019-07-24 07:21 | PCM.PN ---
- General Info Date of Service: 07/24/19 Admission Dx/Problem (Free Text): Admission Diagnosis/Problem Admission Diagnosis/Problem Diverticulitis of colon Subjective Update: Porsha ports she feels better today. She still having left lower quadrant abdominal pain but it is improved. Bowel sounds have improved. She did have a enema - soapsuds with mineral oil yesterday with minimal output. Plan is to repeat this today. Reported small amount of diarrhea this morning. She continues on p.o. Levaquin and Flagyl. Attempted IV potassium however this caused IV site irritation so we will switch to p.o. and recheck labs tomorrow. CRP is elevated however white count is 10.19. G/C test was negative. Glucose has been stable. Labs otherwise have remained stable. We discussed ambulation. She did report yesterday that her last colonoscopy was approximately 5 years prior and there were no concerns noted with the exception of diverticula. Plan is for discharge tomorrow pending continued improvement. Functional Status: Reports: Pain Controlled, Tolerating Diet, Ambulating, Urinating. Denies: New Symptoms - Review of Systems General: Reports: No Symptoms. Denies: Fever, Weakness, Fatigue, Malaise, Chills HEENT: Reports: No Symptoms. Denies: Headaches, Sore Throat Pulmonary: Reports: No Symptoms. Denies: Shortness of Breath, Cough, Sputum, Wheezing Cardiovascular: Reports: No Symptoms. Denies: Chest Pain, Palpitations, Dyspnea on Exertion Gastrointestinal: Reports: Abdominal Pain (LLQ>LUQ, improved ), Constipation, Diarrhea Genitourinary: Reports: No Symptoms. Denies: Pain Musculoskeletal: Reports: No Symptoms Skin: Reports: No Symptoms. Denies: Cyanosis Neurological: Reports: No Symptoms. Denies: Confusion, Difficulty Walking, Gait Disturbance Psychiatric: Reports: No Symptoms - Patient Data Vitals - Most Recent: Last Vital Signs Temp 98.4 F 07/24/19 03:07 Pulse 86 07/24/19 03:07 Resp 16 07/24/19 03:07 BP 139/97 H 07/24/19 03:07 Pulse Ox 97 07/24/19 03:07 Weight - Most Recent: 193 lb 8 oz I&O - Last 24 Hours: Intake & Output 07/23/19 07/24/19 07/24/19 22:59 06:59 14:59 Intake Total 1120 1400 Output Total 1800 975 Balance -680 425 Lab Results Last 24 Hours: Laboratory Results - last 24 hr 07/23/19 07/23/19 07/23/19 Range/Units 17:26 21:01 22:22 WBC (3.98-10.04) K/mm3 RBC (3.98-5.22) M/mm3 Hgb (11.2-15.7) gm/dl Hct (34.1-44.9) % MCV (79.4-94.8) fl MCH (25.6-32.2) pg MCHC (32.2-35.5) g/dl RDW Std Deviation (36.4-46.3) fL Plt Count (182-369) K/mm3 MPV (9.4-12.3) fl Neut % (Auto) (34.0-71.1) % Lymph % (Auto) (19.3-51.7) % [place] % (Auto) (4.7-12.5) % Eos % (Auto) (0.7-5.8) Baso % (Auto) (0.1-1.2) % Neut # (Auto) (1.56-6.13) K/mm3 Lymph # (Auto) (1.18-3.74) K/mm3 [place] # (Auto) (0.24-0.36) K/mm3 Eos # (Auto) (0.04-0.36) K/mm3 Baso # (Auto) (0.01-0.08) K/mm3 Sodium (136-145) mEq/L Potassium (3.5-5.1) mEq/L Chloride (98-107) mEq/L Carbon Dioxide (21-32) mEq/L Anion Gap (5-15) BUN (7-18) mg/dL Creatinine (0.55-1.02) mg/dL Est Cr Clr Drug Dosing mL/min Estimated GFR (MDRD) (>60) mL/min BUN/Creatinine Ratio (14-18) Glucose (74-106) mg/dL POC Glucose 171 H 223 H (70-105) mg/dL Calcium (8.5-10.1) mg/dL Magnesium (1.8-2.4) mg/dl C-Reactive Protein (<1.0) mg/dL C trachomatis DNA (PCR) Not detected N gonorrhoeae DNA (PCR) Not detected 07/24/19 07/24/19 07/24/19 Range/Units 05:22 05:22 06:14 WBC 10.19 H (3.98-10.04) K/mm3 RBC 4.16 (3.98-5.22) M/mm3 Hgb 13.1 (11.2-15.7) gm/dl Hct 41.9 (34.1-44.9) % MCV 100.7 H (79.4-94.8) fl MCH 31.5 (25.6-32.2) pg MCHC 31.3 L (32.2-35.5) g/dl RDW Std Deviation 48.9 H (36.4-46.3) fL Plt Count 306 (182-369) K/mm3 MPV 11.3 (9.4-12.3) fl Neut % (Auto) 69.9 (34.0-71.1) % Lymph % (Auto) 17.2 L (19.3-51.7) % [place] % (Auto) 10.8 (4.7-12.5) % Eos % (Auto) 1.2 (0.7-5.8) Baso % (Auto) 0.2 (0.1-1.2) % Neut # (Auto) 7.13 H (1.56-6.13) K/mm3 Lymph # (Auto) 1.75 (1.18-3.74) K/mm3 [place] # (Auto) 1.10 H (0.24-0.36) K/mm3 Eos # (Auto) 0.12 (0.04-0.36) K/mm3 Baso # (Auto) 0.02 (0.01-0.08) K/mm3 Sodium 139 (136-145) mEq/L Potassium 3.4 L (3.5-5.1) mEq/L Chloride 102 (98-107) mEq/L Carbon Dioxide 25 (21-32) mEq/L Anion Gap 15.4 H (5-15) BUN 4 L (7-18) mg/dL Creatinine 0.5 L (0.55-1.02) mg/dL Est Cr Clr Drug Dosing 90.24 mL/min Estimated GFR (MDRD) > 60 (>60) mL/min BUN/Creatinine Ratio 8.0 L (14-18) Glucose 227 H (74-106) mg/dL POC Glucose 222 H (70-105) mg/dL Calcium 7.9 L (8.5-10.1) mg/dL Magnesium 1.8 (1.8-2.4) mg/dl C-Reactive Protein 16.0 H* (<1.0) mg/dL C trachomatis DNA (PCR) N gonorrhoeae DNA (PCR) Med Orders - Current: Current Medications Acetaminophen (Tylenol) 650 mg PO Q4H PRN PRN Reason: Pain (Mild 1-3)/fever Last Admin: 07/24/19 05:32 Dose: 650 mg Hydrocodone Bitart/Acetaminophen ([place] 325-5 Mg) 1 tab PO Q4H PRN PRN Reason: Pain (moderate 4-6) Last Admin: 07/24/19 03:07 Dose: 1 tab Albuterol (Proventil Hfa) 0 gm INH Q6H PRN PRN Reason: shortnes of breath Albuterol/Ipratropium (Duoneb 3.0-0.5 Mg/3 Ml) 3 ml NEB Q6H PRN PRN Reason: Wheezing Amitriptyline HCl (Elavil) 10 mg PO DAILY [facility] Last Admin: 07/23/19 08:51 Dose: 10 mg Enoxaparin Sodium (Lovenox) 40 mg SUBCUT DAILY [facility] Last Admin: 07/23/19 08:53 Dose: 40 mg Fluoxetine HCl (Prozac) 40 mg PO DAILY [facility] Last Admin: 07/23/19 08:50 Dose: 40 mg Gabapentin (Neurontin) 100 mg PO DAILY [facility] Last Admin: 07/23/19 08:52 Dose: 100 mg Potassium Chloride 10 meq/ (Premix) 100 mls @ 100 mls/hr IV Q1H [facility] Stop: 07/24/19 11:29 Insulin Glargine (Lantus) 10 unit SUBCUT BEDTIME [facility] Last Admin: 07/23/19 21:02 Dose: 10 units Insulin Human Lispro (Humalog) 0 unit SUBCUT QIDACANDBED [facility]; Protocol Last Admin: 07/23/19 21:33 Dose: 4 units Insulin Human Lispro (Humalog) 4 unit SUBCUT TIDAC [facility] Last Admin: 07/23/19 17:49 Dose: 4 ampule Levofloxacin (Levaquin) 750 mg PO Q24H [facility] Last Admin: 07/23/19 14:22 Dose: 750 mg Metronidazole (Flagyl) 500 mg PO Q8H [facility] Last Admin: 07/24/19 05:32 Dose: 500 mg Nystatin (Nystatin Oral Syringe) 500,000 unit PO QID [facility] Last Admin: 07/23/19 21:02 Dose: 500,000 unit Ondansetron HCl (Zofran) 4 mg IVPUSH Q6H PRN PRN Reason: Nausea/Vomiting Senna/Docusate Sodium (Senna Plus) 1 tab PO BID PRN PRN Reason: Constipation Sodium Chloride (Saline Flush) 10 ml FLUSH ONETIME PRN PRN Reason: Keep Vein Open Last Admin: 07/20/19 19:52 Dose: 10 ml Discontinued Medications Enoxaparin Sodium (Lovenox) 40 mg SUBCUT DAILY [facility] Last Admin: 07/21/19 08:10 Dose: 40 mg Hydromorphone HCl (Dilaudid) 0.5 mg IVPUSH ONETIME ONE Stop: 07/20/19 17:22 Last Admin: 07/20/19 17:35 Dose: 0.5 mg Sodium Chloride (Normal Saline) 1,000 mls @ 999 mls/hr IV ONETIME ONE Stop: 07/20/19 18:20 Last Admin: 07/20/19 17:34 Dose: 999 mls/hr Sodium Chloride (Normal Saline) 1,000 mls @ 999 mls/hr IV ONETIME ONE Stop: 07/20/19 19:16 Last Admin: 07/20/19 18:33 Dose: 999 mls/hr Levofloxacin/Dextrose 750 mg/ (Premix) 150 mls @ 100 mls/hr IV ONETIME ONE Stop: 07/20/19 22:01 Last Admin: 07/20/19 21:45 Dose: 100 mls/hr Metronidazole 500 mg/ Premix 100 mls @ 100 mls/hr IV ONETIME ONE Stop: 07/20/19 21:31 Last Admin: 07/20/19 20:47 Dose: 100 mls/hr Sodium Chloride (Normal Saline) 1,000 mls @ 150 mls/hr IV ONETIME ONE Stop: 07/21/19 03:15 Last Admin: 07/20/19 20:47 Dose: 150 mls/hr Lactated Ringer's (Ringers, Lactated) 1,000 mls @ 125 mls/hr IV ASDIRECTED [facility] Lactated Ringer's (Ringers, Lactated) 1,000 mls @ 85 mls/hr IV ASDIRECTED [facility] Last Admin: 07/22/19 03:27 Dose: 85 mls/hr Levofloxacin/Dextrose 750 mg/ (Premix) 150 mls @ 100 mls/hr IV Q24H [facility] Last Admin: 07/22/19 22:10 Dose: 100 mls/hr Metronidazole 500 mg/ Premix 100 mls @ 100 mls/hr IV Q8H [facility] Last Admin: 07/23/19 06:15 Dose: 100 mls/hr Potassium Phosphate 30 mmole/ (Sodium Chloride) 510 mls @ 102 mls/hr IV ONETIME ONE Stop: 07/22/19 13:29 Last Admin: 07/22/19 08:41 Dose: 102 mls/hr Magnesium Sulfate 2 gm/ Premix 50 mls @ 25 mls/hr IV ONETIME ONE Stop: 07/23/19 09:59 Last Admin: 07/23/19 08:34 Dose: 25 mls/hr Insulin Glargine (Lantus) 8 unit SUBCUT BEDTIME [facility] Last Admin: 07/21/19 20:48 Dose: 8 units Insulin Human Lispro (Humalog) 2 unit SUBCUT TIDAC [facility] Last Admin: 07/23/19 09:26 Dose: 2 units Insulin Human Regular (Humulin R) 5 unit IV ONETIME ONE Stop: 07/20/19 18:17 Last Admin: 07/20/19 18:24 Dose: 5 unit Insulin Human Regular (Humulin R) 5 unit IV ONETIME ONE Stop: 07/20/19 20:17 Last Admin: 07/20/19 20:32 Dose: 5 unit Iopamidol (Isovue-300 (61%)) 100 ml IVPUSH ONETIME ONE Stop: 07/20/19 18:32 Last Admin: 07/20/19 19:52 Dose: 100 ml Morphine Sulfate (Morphine) 1 mg IVPUSH Q2H PRN PRN Reason: Pain (severe 7-10) Stop: 07/21/19 21:33 Ondansetron HCl (Zofran) 4 mg IVPUSH ONETIME ONE Stop: 07/20/19 17:22 Last Admin: 07/20/19 17:34 Dose: 4 mg Sodium Chloride (Saline Flush) 10 ml FLUSH ASDIRECTED PRN PRN Reason: Keep Vein Open Last Admin: 07/20/19 17:36 Dose: 10 ml - Exam Quality Assessment: DVT Prophylaxis General: Alert, Oriented, Cooperative, No Acute Distress HEENT: Pupils Equal, Pupils Reactive, Mucous Membr. Moist/[place] Neck: Supple, Trachea Midline Lungs: Clear to Auscultation, Normal Respiratory Effort Cardiovascular: Regular Rate, Regular Rhythm GI/Abdominal Exam: Normal Bowel Sounds, Soft, No Organomegaly, No Distention, No Abnormal Bruit, Tender (Female) Exam: Deferred Back Exam: Normal Inspection, Full Range of Motion Extremities: Normal Inspection, Normal Range of Motion, Non-Tender, No Pedal Edema, Normal Capillary Refill Skin: Warm, Dry, Intact Neurological: No New Focal Deficit Psy/Mental Status: Alert, Normal Affect, Normal Mood Sepsis Event Note - Evaluation Sepsis Screening Result: No Definite Risk - Focused Exam Vital Signs: Vital Signs Temp Pulse Resp BP Pulse Ox Pulse Ox Pulse Ox 07/24/19 03:07 98.4 F 86 16 139/97 H 97 07/23/19 22:25 98 07/23/19 21:05 99.3 F 94 16 127/64 93 L 07/23/19 21:00 95 Date Exam was Performed: 07/24/19 Time Exam was Performed: 11:32 - Problem List & Annotations (1) Diverticulitis SNOMED Code(s): 870337164 Code(s): K57.92 - DVTRCLI OF INTEST, PART UNSP, W/O PERF OR ABSCESS W/O BLEED Status: Acute Priority: High Current Visit: Yes (2) Hyperglycemia SNOMED Code(s): 51488161 Code(s): R73.9 - HYPERGLYCEMIA, UNSPECIFIED Status: Acute Priority: High Current Visit: Yes (3) Thrush, oral SNOMED Code(s): 33721608 Code(s): B37.0 - CANDIDAL STOMATITIS Status: Acute Priority: Medium Current Visit: Yes (4) COPD (chronic obstructive pulmonary disease) SNOMED Code(s): 80501046 Code(s): J44.9 - CHRONIC OBSTRUCTIVE PULMONARY DISEASE, UNSPECIFIED Status : Chronic Priority: Low Current Visit: Yes (5) Diabetes mellitus type II, non insulin dependent SNOMED Code(s): 48929925 Code(s): E11.9 - TYPE 2 DIABETES MELLITUS WITHOUT COMPLICATIONS Status: Chronic Priority: High Current Visit: Yes (6) Obstructive sleep apnea on CPAP SNOMED Code(s): 20446596 Code(s): G47.33 - OBSTRUCTIVE SLEEP APNEA (ADULT) (PEDIATRIC); Z99.89 - DEPENDENCE ON OTHER ENABLING MACHINES AND DEVICES Status: Chronic Priority: Low Current Visit: Yes (7) Severe obesity (BMI 35.0-35.9 with comorbidity) SNOMED Code(s): 52734234599139, 57671785957434 Code(s): E66.01 - MORBID (SEVERE) OBESITY DUE TO EXCESS CALORIES; Z68.35 - BODY MASS INDEX (BMI) 35.0-35.9, ADULT Status: Chronic Priority: Medium Current Visit: Yes (8) Hematochezia SNOMED Code(s): 017554965 Code(s): K92.1 - MELENA Status: Suspected Priority: Medium Current Visit: Yes (9) Elevated hemoglobin A1c SNOMED Code(s): 337248052 Code(s): R73.09 - OTHER ABNORMAL GLUCOSE Status: Acute Priority: High Current Visit: Yes - Problem List Review Problem List Initiated/Reviewed/Updated: Yes - My Orders Last 24 Hours: My Active Orders 07/23/19 11:00 Insulin Lispro [HumaLOG] 4 unit SUBCUT TIDAC 07/23/19 12:51 Enema [RC] ASDIRECTED 07/23/19 13:00 levoFLOXacin [Levaquin] 750 mg PO Q24H metroNIDAZOLE [Flagyl] 500 mg PO Q8H 07/23/19 Dinner Soft Diet [DIET] 07/24/19 07:30 Potassium Chloride [KCl 10 MEQ in Water 100 ML] 10 meq Premix Bag 1 bag IV Q1H 07/25/19 05:11 BASIC METABOLIC PANEL,BMP [CHEM] AM CBC WITH AUTO DIFF [HEME] AM CRP [C-REACTIVE PROTEIN] [CHEM] AM MAGNESIUM [CHEM] AM - Plan Plan:: Diverticulitis. CT scan reveals diverticulitis of sigmoid colon. WBC 10.94 with left shift. Patient is not able to tolerate oral intake due to pain and nausea. In ED was given levofloxacin 750mg IV x1, metronidazole 500mg IV x1, and Zofran 4mg IV x1. NS 1L bolus x3. Reports pain is improved today. Has been up ambulating. Enema given yesterday with minimal response. G/C negative Continue PO Levofloxacin 750mg q24 hours and metronidazole 500mg q8h. Zofran 4mg IV q6h as needed for nausea. Continue soft diet Reports pain does not get worse or better with diet Ambulate Suspect underlying constipation. Repeat soapsuds enema with mineral oil. Re-check CBC, CRP in AM Hyperglycemia, uncontrolled diabetes Type 2. Blood sugar 717 on first draw in ED. Pt was given Insulin R 5 units and NS 2L bolus, blood sugar decreased to 461. Pt given another NS 1L bolus NS and insulin R 5 units, blood sugar decreased to 300. CO2 normal, no ketones in urine. A1C >16. Patient has not been taking metformin due to nausea. Triglycerides 215, total cholesterol 116, LDL 61, HDL 27. Repeat A1C for verification 13.4% BS trend today 171/273 Will continue to hold home metformin. Continue 10 units lantus at bedtime Check Fingerstick blood glucose ACHS. Diabetes education. [employer] consult. Medium dose SS insulin Increase Humalog insulin from 4 units TIDAC to 6 units TIDAC Will likely be influenced by Levaquin treatment. CBC, BMP, Mg in AM. Hematochezia. H/H stable given amount of fluids given Stool occult negative. Continue to monitor Oral Thrush. Physical exam reveals white plaque on tongue and soft palate. Nystatin 500,000 units QID. Morbid obesity w/ comorbidities. BMI 37.6 Lipid panel as above Will discuss diet and exercise for weight loss. [employer] consult. Obstructive Sleep Apnea. Continue patient on CPAP at night with home settings. Asthma. Not in acute exacerbation. O2 saturation >93% on RA. Duoneb nebulizer 3mL q6h as needed for wheezing. Hx Hypertension. Patient reports hypertension but is not on home medications for blood pressure. Will monitor. BP stable Hx Dyslipidemia. Patient reports high cholesterol but is not on statin. Lipid panel as above. Pain Control: Acetaminophen 650mg po Q6H PRN mild pain or fever, HYDROcodone 5/ 325mg PO Q6H PRN moderate pain, and morphine sulfate 1 mg IVP Q2H PRN chest pain or severe pain. Nausea: In case of nausea use Zofran 4mg IVP Q6H PRN nausea. DVT Prophylaxis: Lovenox GI Bleed Prophylaxis: Not indicated. Mylanta 30 mL q4h PRN indigestion. Constipation Prophylaxis: Docusate 100mg PO BID as needed for constipation. CODE STATUS: Full Code Disposition: Likely discharge tomorrow LOS >96 HRS due to suspected underlying constipation and slow response to treatment.
[2019-07-24] MEDS: Insulin Lispro 100 Units/ML 3 ML Vial SUBCUT SCH ×8 (08:13→21:46)
[2019-07-24] MEDS: Potassium Chloride 10 MEQ in Premix Bag 1 BAG IV SCH ×3 (08:17→14:26)
--- NOTE | 2019-07-24 08:21 | PN ---
DATE OF SERVICE: 07/20/2019 ADDENDUM: The patient was seen, examined, and discussed by me with Yosi Ansari PA-C. Ms. Martinez is 58 years old white female with past medical history significant for dyslipidemia, obstructive sleep apnea on CPAP, COPD, hypertension, GERD, history of peptic ulcer disease, depression, diabetes type 2, obesity with BMI more than 30, who was admitted to the hospital on July 20, 2019, from emergency room where patient presented after 3 weeks of having left lower abdominal pain, having nausea and not being able to eat anything more than clear liquids, and for the last couple of days, the patient had watery diarrhea. CT scan that was done in the emergency room showed that the patient has low sigmoid diverticulitis, but with also some question about possibility of oophoritis. The patient was started on Levaquin and Flagyl, IV fluid supplementation. Since admission, the patient's condition still worrisome and today at the time of exam, the patient still reports significant left lower and left midabdominal pain, but nausea and vomiting improved and the patient is actually asking for more food. White blood cells remain moderately elevated, 10.6, but trending down. No fevers. At the time of assessment, the patient was found with obvious signs of fecal impaction that I believe strongly contribute to patient's symptoms and makes it so difficult to treat patient's diverticulitis. Otherwise, abdomen is soft and no signs of peritonitis. Given all above mentioned, the patient will stay in house. We will give patient soapsuds enema with mineral oil x1 now, and if needed we will repeat enema tomorrow morning. We will continue antibiotics, but we will try to change them to oral. Diet will be cautiously advanced to mechanically soft. I think patient will need to stay in the hospital additional 1 to 2 days until relief of her fecal impaction. Upon discharge, we will recommend laxatives that hopefully will help patient not to have a similar episode again. Other than this, because of some question about oophoritis, we will send urine test for GC/CT. PID though seems to be very unlikely otherwise. Full details of the patient's review of systems, interval test results, physical exam, medications, and further plan of management, please see note prepared by Yosi Ansari PA-C. MM[facility] /[id number]
[2019-07-24] MEDS: Nystatin Susp 100,000 Unit/ML 5 ML Oral Syringe PO SCH ×4 (08:24→21:48)
[2019-07-24] MEDS: Amitriptyline 10 MG Tab PO SCH (08:25)
[2019-07-24] MEDS: FLUoxetine 20 MG Cap PO SCH (08:25)
[2019-07-24] MEDS: Gabapentin 100 MG Cap PO SCH (08:25)
[2019-07-24] MEDS: Enoxaparin 40 MG/0.4 ML Syringe SUBCUT SCH (08:25)
[2019-07-24] MEDS ORDERED: Sodium Chloride 0.9% 1,000 ML IV SCH (08:45)
[2019-07-24] MEDS: Potassium Chloride 20 MEQ Tab.ER PO SCH ×2 (10:44→21:45)
[2019-07-24] MEDS: Levofloxacin 750 MG Tab PO SCH (13:09)
--- NOTE | 2019-07-24 13:15 | PN ---
DATE OF SERVICE: 07/24/2019 ADDENDUM: The patient was seen, examined, and discussed by me with Yosi Ansari PA-C. Ms. Martinez yesterday received soapsuds enema with mineral oil. Response was very minimal, but today, the patient reports improvement of symptoms. Pain is much less. No fevers. White blood cells though remain elevated at 10.2. At the time of physical exam, the patient's abdomen fells slightly distended, but tenderness on palpation subsided. I still appreciated stool in the patient's left colon. At this moment, we will continue Levaquin and flagyl p.o. The patient will receive additional soapsuds enema with mineral oil that hopefully will relieve the patient's fecal impaction. Dependent on further development of clinical situation and blood test results, I expect the patient can be discharged home hopefully tomorrow. To note, the patient had GC/CT test done, that came back negative. For details of the patient's review of systems, interval test results, physical exam, medications, and further plan of management, please see note prepared by Yosi Ansari PA-C. [facility] /[id number]
[2019-07-24] MEDS ORDERED: Lactulose Soln 10 GM/15 ML 30 ML UD Cup PO ONE (14:54)
[2019-07-24] MEDS ORDERED: Mineral Oil 30 ML UD Cup PO ONE (17:58)
[2019-07-24] MEDS: Insulin Glarg,Human.Rec.Analog 100 Unit/ML SUBCUT SCH (21:47)
[2019-07-25] MEDS: Acetaminophen 325 MG Tab PO PRN (02:59)
[2019-07-25] MEDS: metroNIDAZOLE 500 MG Tab PO SCH (06:00)
[2019-07-25] MEDS: Acetaminophen/HYDROcodone 325-5 MG Tab PO PRN (06:00)
[2019-07-25] MEDS: Gabapentin 100 MG Cap PO SCH ×2 (07:58→08:02)
[2019-07-25] MEDS: Nystatin Susp 100,000 Unit/ML 5 ML Oral Syringe PO SCH ×2 (07:58→08:02)
[2019-07-25] MEDS: Amitriptyline 10 MG Tab PO SCH ×2 (07:58→08:02)
[2019-07-25] MEDS: FLUoxetine 20 MG Cap PO SCH ×2 (07:58→08:02)
[2019-07-25] MEDS: Enoxaparin 40 MG/0.4 ML Syringe SUBCUT SCH (07:59)
[2019-07-25] MEDS: Insulin Lispro 100 Units/ML 3 ML Vial SUBCUT SCH ×4 (08:00→12:00)
--- NOTE | 2019-07-25 10:05 | PCM.DCSUM1 ---
Discharge Summary - Hospital Course HPI Initial Comments: The patient is a 58-year-old female, PCP Dr. Madison, with a past history of diabetes mellitus type 2, COPD, obstructive sleep apnea, hypertension , and hyperlipidemia, presented to the emergency room today after experiencing 3 weeks of abdominal pain that has gradually worsened until becoming intolerable this afternoon. Abdominal pain is sharp and is in left lower quadrant with radiation to left back. Worsened by oral intake and pressing on leftlower abdomen. For the past 3 weeks, patient has been eating clear liquids only. When she tries to advance diet to bland foods, abdominal pain increases and she goes back to clear liquids. Associated symptoms include nausea. She vomited yesterday. Denies blood in vomit. She has also had diarrhea on and off. Last bowel movement was 3 days ago and was dark. Yesterday, while urinating, the patient noticed bright red blood in the toilet and self rectal exam revealed blood per rectum. She has not had blood per rectum today. No blood was on toilet paper when wiping. She notes for 3 weeks her legs have been cramping on and off, she has had sore throat, dry mouth, cracking at corners of lips, and has been urinating more frequently and has felt very dehydrated. She also admits to feeling dizzy on and off. Denies shortness of breath, coughing, fevers or chills. The patient has not been taking her metformin because of nausea. Diagnosis: Stroke: No - Discharge Data Discharge Date: 07/25/19 Discharge Disposition: Home, Self-Care 01 Condition: Stable - Referral to Home Health Primary Care Physician: Pennie Hall MD - Patient Summary/Data Consults: Consultations 07/21/19 07:29 Consult to Case Management/Procedure Analyst [CONS] Routine Consult to Diabetic Nurse Specialist [CONS] Routine Consult to Plant Guard [CONS] Routine - Patient Instructions Diet: Low Sodium, Diabetic Diet Activity: As Tolerated - Discharge Plan *PRESCRIPTION DRUG MONITORING PROGRAM REVIEWED*: No *COPY OF PRESCRIPTION DRUG MONITORING REPORT IN PATIENT ABIOLA: No Prescriptions/Med Rec: Docusate Sodium/Sennosides [Senna Plus] 2 tab PO BEDTIME #60 tablet Insulin Glarg,Human.Rec.Analog [Lantus] 18 unit SUBCUT BEDTIME 30 Days #30 ml levoFLOXacin [Levofloxacin] 500 mg PO DAILY 3 Days #3 tablet metroNIDAZOLE [Flagyl] 500 mg PO Q8H 3 Days #9 tablet Home Medications: Home Meds Amitriptyline [Elavil] 10 mg PO DAILY 07/21/19 [History] FLUoxetine [PROzac] 40 mg PO DAILY 07/21/19 [History] Gabapentin [Neurontin] 100 mg PO TID 07/21/19 [History] Simvastatin [Zocor] 40 mg PO DAILY 07/21/19 [History] Dapagliflozin/Metformin HCl [Xigduo Xr 5 mg-1,000 mg Tablet] 1 tab PO DAILY [History] Docusate Sodium/Sennosides [Senna Plus] 2 tab PO BEDTIME #60 tablet 07/25/19 [Rx ] Insulin Glarg,Human.Rec.Analog [Lantus] 18 unit SUBCUT BEDTIME 30 Days #30 ml [Rx] levoFLOXacin [Levofloxacin] 500 mg PO DAILY 3 Days #3 tablet 07/25/19 [Rx] metroNIDAZOLE [Flagyl] 500 mg PO Q8H 3 Days #9 tablet 07/25/19 [Rx] Oxygen Therapy Mode: Room Air Patient Handouts: Type 2 Diabetes Mellitus, Diagnosis, Adult, Diverticulitis, [id number], Diverticulitis, Hyperglycemia, [id number] Forms: ED Department Discharge Referrals: Pennie Hall MD [Primary Care Provider] - - Discharge Summary/Plan Comment DC Time >30 min.: Yes Discharge Summary/Plan Comment: Discharge diagnosis Acute diverticulitis status post resolve Electrolyte imbalance status post replaced Obstipation status post resolved Depression Neuropathy Obesity Dyslipidemia Mrs. Martinez pleasant 58-year-old female. The patient with past medical history significant for diabetes mellitus type 2, COPD, obstructive sleep apnea, hypertension and dyslipidemia who was admitted to the emergency room with a 3-week history of intractable abdominal pain progressively getting worse. On the day of admission, patient reported she was in the usual state of health when suddenly she developed left lower quadrant pain with radiation to the back. Reported some episodes of bright red blood in stool decided to come to the ED for further evaluation. On presentation in the ED, patient appeared to be weak, in moderate distress. CT scan of abdomen and pelvis that was done to the patient was consistent for diverticulitis involving the sigmoid colon. Given this presentation patient was admitted to the hospital, kept n.p.o. Started on IV antibiotics with Levaquin and Flagyl. On further examination, the patient was improving, patient still had abdominal discomfort. Was found with obstipation. Patient was given multiple doses of laxatives and fortunately obstipation resolved. Hemoglobin A1c was checked, found to be significantly elevated at 13.3. On discharge, the patient is recommended to continue on previously established p.o. medications for diabetes but at the same time patient will require insulins. We will start the patient on Lantus 18 units subcu nightly. Patient is recommended to check blood glucose 4 times a day, keep a log of blood glucose readings and follow-up with primary care provider to better adjust. In the meantime patient is also encouraged to drink moderate amount of water daily, stool softeners provided on discharge trying to help with obstipation. And is advised to take stool softeners and if no bowel movement on previous day, take MiraLAX. Follow-up with primary care provider within 1 week of discharge. - Patient Data Vitals - Most Recent: Last Vital Signs Temp 98.8 F 07/25/19 07:45 Pulse 77 07/25/19 07:45 Resp 16 07/25/19 07:45 BP 106/76 07/25/19 07:45 Pulse Ox 96 07/25/19 07:45 Weight - Most Recent: 193 lb 8 oz I&O - Last 24 hours: Intake & Output 07/24/19 07/25/19 07/25/19 22:59 06:59 14:59 Intake Total 2010 400 Output Total 500 1000 Balance 1510 -600 Lab Results - Last 24 hrs: Laboratory Results - last 24 hr 07/24/19 07/24/19 07/24/19 Range/Units 10:50 19:13 21:38 WBC (3.98-10.04) K/mm3 RBC (3.98-5.22) M/mm3 Hgb (11.2-15.7) gm/dl Hct (34.1-44.9) % MCV (79.4-94.8) fl MCH (25.6-32.2) pg MCHC (32.2-35.5) g/dl RDW Std Deviation (36.4-46.3) fL Plt Count (182-369) K/mm3 MPV (9.4-12.3) fl Neut % (Auto) (34.0-71.1) % Lymph % (Auto) (19.3-51.7) % [place] % (Auto) (4.7-12.5) % Eos % (Auto) (0.7-5.8) Baso % (Auto) (0.1-1.2) % Neut # (Auto) (1.56-6.13) K/mm3 Lymph # (Auto) (1.18-3.74) K/mm3 [place] # (Auto) (0.24-0.36) K/mm3 Eos # (Auto) (0.04-0.36) K/mm3 Baso # (Auto) (0.01-0.08) K/mm3 Sodium (136-145) mEq/L Potassium (3.5-5.1) mEq/L Chloride (98-107) mEq/L Carbon Dioxide (21-32) mEq/L Anion Gap (5-15) BUN (7-18) mg/dL Creatinine (0.55-1.02) mg/dL Est Cr Clr Drug Dosing mL/min Estimated GFR (MDRD) (>60) mL/min BUN/Creatinine Ratio (14-18) Glucose (74-106) mg/dL POC Glucose 279 H 318 H 261 H (70-105) mg/dL Calcium (8.5-10.1) mg/dL Magnesium (1.8-2.4) mg/dl C-Reactive Protein (<1.0) mg/dL 07/25/19 07/25/19 07/25/19 Range/Units 05:35 05:35 05:59 WBC 9.72 (3.98-10.04) K/mm3 RBC 4.16 (3.98-5.22) M/mm3 Hgb 13.0 (11.2-15.7) gm/dl Hct 42.3 (34.1-44.9) % MCV 101.7 H (79.4-94.8) fl MCH 31.3 (25.6-32.2) pg MCHC 30.7 L (32.2-35.5) g/dl RDW Std Deviation 49.5 H (36.4-46.3) fL Plt Count 339 (182-369) K/mm3 MPV 10.8 (9.4-12.3) fl Neut % (Auto) 65.5 (34.0-71.1) % Lymph % (Auto) 21.1 (19.3-51.7) % [place] % (Auto) 10.9 (4.7-12.5) % Eos % (Auto) 1.3 (0.7-5.8) Baso % (Auto) 0.4 (0.1-1.2) % Neut # (Auto) 6.36 H (1.56-6.13) K/mm3 Lymph # (Auto) 2.05 (1.18-3.74) K/mm3 [place] # (Auto) 1.06 H (0.24-0.36) K/mm3 Eos # (Auto) 0.13 (0.04-0.36) K/mm3 Baso # (Auto) 0.04 (0.01-0.08) K/mm3 Sodium 139 (136-145) mEq/L Potassium 4.2 (3.5-5.1) mEq/L Chloride 103 (98-107) mEq/L Carbon Dioxide 26 (21-32) mEq/L Anion Gap 14.2 (5-15) BUN 4 L (7-18) mg/dL Creatinine 0.7 (0.55-1.02) mg/dL Est Cr Clr Drug Dosing 64.46 mL/min Estimated GFR (MDRD) > 60 (>60) mL/min BUN/Creatinine Ratio 5.7 L (14-18) Glucose 245 H (74-106) mg/dL POC Glucose 210 H (70-105) mg/dL Calcium 8.1 L (8.5-10.1) mg/dL Magnesium 1.7 L (1.8-2.4) mg/dl C-Reactive Protein 13.1 H* (<1.0) mg/dL Med Orders - Current: Current Medications Acetaminophen (Tylenol) 650 mg PO Q4H PRN PRN Reason: Pain (Mild 1-3)/fever Last Admin: 07/25/19 02:59 Dose: 650 mg Hydrocodone Bitart/Acetaminophen ([place] 325-5 Mg) 1 tab PO Q4H PRN PRN Reason: Pain (moderate 4-6) Last Admin: 07/25/19 06:00 Dose: 1 tab Albuterol (Proventil Hfa) 0 gm INH Q6H PRN PRN Reason: shortnes of breath Albuterol/Ipratropium (Duoneb 3.0-0.5 Mg/3 Ml) 3 ml NEB Q6H PRN PRN Reason: Wheezing Amitriptyline HCl (Elavil) 10 mg PO DAILY [facility] Last Admin: 07/25/19 08:02 Dose: Not Given Enoxaparin Sodium (Lovenox) 40 mg SUBCUT DAILY [facility] Last Admin: 07/25/19 07:59 Dose: 40 mg Fluoxetine HCl (Prozac) 40 mg PO DAILY [facility] Last Admin: 07/25/19 08:02 Dose: Not Given Gabapentin (Neurontin) 100 mg PO DAILY [facility] Last Admin: 07/25/19 08:02 Dose: Not Given Insulin Glargine (Lantus) 10 unit SUBCUT BEDTIME [facility] Last Admin: 07/24/19 21:47 Dose: 10 units Insulin Human Lispro (Humalog) 0 unit SUBCUT QIDACANDBED [facility]; Protocol Last Admin: 07/25/19 08:00 Dose: 4 units Insulin Human Lispro (Humalog) 6 unit SUBCUT TIDAC [facility] Last Admin: 07/25/19 08:01 Dose: 6 units Levofloxacin (Levaquin) 750 mg PO Q24H [facility] Last Admin: 07/24/19 13:09 Dose: 750 mg Metronidazole (Flagyl) 500 mg PO Q8H [facility] Last Admin: 07/25/19 06:00 Dose: 500 mg Nystatin (Nystatin Oral Syringe) 500,000 unit PO QID [facility] Last Admin: 07/25/19 08:02 Dose: Not Given Ondansetron HCl (Zofran) 4 mg IVPUSH Q6H PRN PRN Reason: Nausea/Vomiting Senna/Docusate Sodium (Senna Plus) 1 tab PO BID PRN PRN Reason: Constipation Sodium Chloride (Saline Flush) 10 ml FLUSH ONETIME PRN PRN Reason: Keep Vein Open Last Admin: 07/20/19 19:52 Dose: 10 ml Discontinued Medications Enoxaparin Sodium (Lovenox) 40 mg SUBCUT DAILY [facility] Last Admin: 07/21/19 08:10 Dose: 40 mg Hydromorphone HCl (Dilaudid) 0.5 mg IVPUSH ONETIME ONE Stop: 07/20/19 17:22 Last Admin: 07/20/19 17:35 Dose: 0.5 mg Sodium Chloride (Normal Saline) 1,000 mls @ 999 mls/hr IV ONETIME ONE Stop: 07/20/19 18:20 Last Admin: 07/20/19 17:34 Dose: 999 mls/hr Sodium Chloride (Normal Saline) 1,000 mls @ 999 mls/hr IV ONETIME ONE Stop: 07/20/19 19:16 Last Admin: 07/20/19 18:33 Dose: 999 mls/hr Levofloxacin/Dextrose 750 mg/ (Premix) 150 mls @ 100 mls/hr IV ONETIME ONE Stop: 07/20/19 22:01 Last Admin: 07/20/19 21:45 Dose: 100 mls/hr Metronidazole 500 mg/ Premix 100 mls @ 100 mls/hr IV ONETIME ONE Stop: 07/20/19 21:31 Last Admin: 07/20/19 20:47 Dose: 100 mls/hr Sodium Chloride (Normal Saline) 1,000 mls @ 150 mls/hr IV ONETIME ONE Stop: 07/21/19 03:15 Last Admin: 07/20/19 20:47 Dose: 150 mls/hr Lactated Ringer's (Ringers, Lactated) 1,000 mls @ 125 mls/hr IV ASDIRECTED [facility] Lactated Ringer's (Ringers, Lactated) 1,000 mls @ 85 mls/hr IV ASDIRECTED [facility] Last Admin: 07/22/19 03:27 Dose: 85 mls/hr Levofloxacin/Dextrose 750 mg/ (Premix) 150 mls @ 100 mls/hr IV Q24H [facility] Last Admin: 07/22/19 22:10 Dose: 100 mls/hr Metronidazole 500 mg/ Premix 100 mls @ 100 mls/hr IV Q8H [facility] Last Admin: 07/23/19 06:15 Dose: 100 mls/hr Potassium Phosphate 30 mmole/ (Sodium Chloride) 510 mls @ 102 mls/hr IV ONETIME ONE Stop: 07/22/19 13:29 Last Admin: 07/22/19 08:41 Dose: 102 mls/hr Magnesium Sulfate 2 gm/ Premix 50 mls @ 25 mls/hr IV ONETIME ONE Stop: 07/23/19 09:59 Last Admin: 07/23/19 08:34 Dose: 25 mls/hr Potassium Chloride 10 meq/ (Premix) 100 mls @ 100 mls/hr IV Q1H [facility] Stop: 07/24/19 11:29 Last Admin: 07/24/19 14:26 Dose: Not Given Sodium Chloride (Normal Saline) 1,000 mls @ 75 mls/hr IV ASDIRECTED [facility] Insulin Glargine (Lantus) 8 unit SUBCUT BEDTIME [facility] Last Admin: 07/21/19 20:48 Dose: 8 units Insulin Human Lispro (Humalog) 2 unit SUBCUT TIDAC [facility] Last Admin: 07/23/19 09:26 Dose: 2 units Insulin Human Lispro (Humalog) 4 unit SUBCUT TIDAC [facility] Last Admin: 07/24/19 14:26 Dose: Not Given Insulin Human Regular (Humulin R) 5 unit IV ONETIME ONE Stop: 07/20/19 18:17 Last Admin: 07/20/19 18:24 Dose: 5 unit Insulin Human Regular (Humulin R) 5 unit IV ONETIME ONE Stop: 07/20/19 20:17 Last Admin: 07/20/19 20:32 Dose: 5 unit Iopamidol (Isovue-300 (61%)) 100 ml IVPUSH ONETIME ONE Stop: 07/20/19 18:32 Last Admin: 07/20/19 19:52 Dose: 100 ml Lactulose (Cephulac) 40 gm PO ONETIME ONE Stop: 07/24/19 14:55 Last Admin: 07/24/19 15:35 Dose: 40 gm Mineral Oil (Mineral Oil) 120 ml PO ONETIME ONE Stop: 07/24/19 17:59 Morphine Sulfate (Morphine) 1 mg IVPUSH Q2H PRN PRN Reason: Pain (severe 7-10) Stop: 07/21/19 21:33 Ondansetron HCl (Zofran) 4 mg IVPUSH ONETIME ONE Stop: 07/20/19 17:22 Last Admin: 07/20/19 17:34 Dose: 4 mg Potassium Chloride (Klor-Con M20) 40 meq PO BID [facility] Stop: 07/24/19 21:01 Last Admin: 07/24/19 21:45 Dose: 40 meq Sodium Chloride (Saline Flush) 10 ml FLUSH ASDIRECTED PRN PRN Reason: Keep Vein Open Last Admin: 07/20/19 17:36 Dose: 10 ml - Exam General: Reports: Alert, Oriented HEENT: Reports: Pupils Equal, Pupils Reactive, EOMI, Mucous Membr. Moist/[place] Neck: Reports: Supple Lungs: Reports: Clear to Auscultation, Normal Respiratory Effort Cardiovascular: Reports: Regular Rate, Regular Rhythm, No Murmurs GI/Abdominal Exam: Normal Bowel Sounds, Soft, Non-Tender, No Organomegaly, No Distention, No Abnormal Bruit, No Mass Rectal (Female) Exam: Normal Exam Back Exam: Reports: Normal Inspection, Full Range of Motion Extremities: Normal Inspection, Normal Range of Motion, Non-Tender, No Pedal Edema, Normal Capillary Refill Skin: Reports: Warm, Dry, Intact Neurological: Reports: No New Focal Deficit, Normal Gait, Normal Speech Psy/Mental Status: Reports: Normal Mood
--- NOTE | 2019-07-27 10:25 | DISCH ---
ADMISSION DATE: 07/20/2019 DISCHARGE DATE: 07/25/2019 ADDENDUM: FINAL DIAGNOSIS: Severe sigmoid diverticulitis. Fecal impaction as the cause of result. Obstructive sleep apnea, on CPAP overnight; chronic obstructive pulmonary disease; hypertension; gastroesophageal reflux disease; history of peptic ulcer disease; depression; diabetes type 2; obesity with BMI more than 30; and constipation. The patient was seen, examined, and discussed by me with Todd Howe PA-C. The patient is a 58-year-old white female who was admitted to the hospital on 07/20/2019 from emergency room where the patient presented after 3 weeks of having left lower abdominal pain, nausea, vomiting, and for last couple of days prior to admission, the patient had clear liquid diarrhea as per the patient. CT scan showed signs of diverticulitis. There was also question of oophoritis. GC/CT was done and came back negative for GC or CT. So, the patient was on Levaquin and Flagyl and we got concentrated on treatment of diverticulitis. After 3 days of treatment with antibiotics, IV fluids, the patient's abdomen was still severely painful, white blood cells elevated. Further assessment found that actually despite report of liquid bowel movement prior to admission, the patient had fecal impaction. The patient received series of soapsuds enemas with mineral oil. She responded with 8 small to large bowel movements and finally had relief of her fecal impaction. At day of discharge, the patient feels well. No abdominal pain. No nausea, no vomiting. The patient is tolerating food well. White blood cells came down to normal and the patient will be discharged home in satisfactory condition. Upon discharge, we will recommend the patient to watch for constipation, appropriate diet. She will finish a course of p.o. antibiotics, Cipro and Flagyl, and she will report to her primary care physician within 1 week after discharge to continue management. For details of the patient's history, clinical presentation, test results, physical exam, course of hospital stay, discharge medications and recommendations, please see discharge summary and discharge instructions prepared by Todd Howe PA-C. DISCHARGE MEDICATIONS: DIET: ACTIVITY: FOLLOW-UP: CONDITION ON DISCHARGE: MMODAL /[id number]
== END 2019-07-25 12:21 | disposition home or self-care (01) | DRG 392 ==
LOC: JD.ED 16:10 → JD.MS 21:16
PROVIDERS: ADMIT Internal Medicine; ATTEND Internal Medicine
DX: K57.32 Diverticulitis of large intestine without perforation or abscess without bleeding (principal); B37.0 Candidal stomatitis; J44.9 Chronic obstructive pulmonary disease, unspecified; G47.33 Obstructive sleep apnea (adult) (pediatric); I10 Essential (primary) hypertension; E78.5 Hyperlipidemia, unspecified; K59.00 Constipation, unspecified; F32.9 Major depressive disorder, single episode, unspecified; E11.40 Type 2 diabetes mellitus with diabetic neuropathy, unspecified; E66.9 Obesity, unspecified; K21.9 Gastro-esophageal reflux disease without esophagitis; E78.00 Pure hypercholesterolemia, unspecified; E11.65 Type 2 diabetes mellitus with hyperglycemia; Z79.4 Long term (current) use of insulin; Z79.899 Other long term (current) drug therapy; Z99.81 Dependence on supplemental oxygen; Z87.11 Personal history of peptic ulcer disease; Z88.1 Allergy status to other antibiotic agents; Z88.0 Allergy status to penicillin; Z90.49 Acquired absence of other specified parts of digestive tract; Z98.51 Tubal ligation status; Z68.37 Body mass index [BMI] 37.0-37.9, adult
CPT/HCPCS: 36415; 74177; 74177-26; 80048; 80053; 80061; 82009; 82272; 82947; 82962; 83036; 83690; 83735; 83930; 84100; 84484; 85025; 86140; 87491; 87591; 93005; 93010; 94660; 96361; 96365; 96375; 99284; 99285-25; A9270-GY; J1170; J1650; J1815-GY; J1956; J2405; J3475; J3480; J3490; J7030; J7040; J7120; Q9967

== ENCOUNTER 2020-06-22 15:04 | Emergency (ER) | payer OTHER ==
[2020-06-22] MEDS ORDERED: Sodium Chloride 0.9% 10 ML Syringe FLUSH PRN (15:29)
[2020-06-22] MEDS ORDERED: Sodium Chloride 0.9% 1,000 ML IV ONE (15:29)
[2020-06-22] MEDS ORDERED: Ketorolac 30 MG/ML SDV IVPUSH ONE (15:29)
[2020-06-22] MEDS ORDERED: diphenhydrAMINE 50 MG/ML SDV IVPUSH ONE (15:29)
[2020-06-22] MEDS ORDERED: Metoclopramide 10 MG/2 ML SDV IVPUSH ONE (15:29)
--- NOTE | 2020-06-22 15:32 | EDM.PDOC ---
ED HPI GENERAL MEDICAL PROBLEM - General Chief Complaint: Headache Stated Complaint: HEADACHE Time Seen by Provider: 06/22/20 15:13 Source of Information: Reports: Patient, RN Notes Reviewed History Limitations: Reports: No Limitations - History of Present Illness INITIAL COMMENTS - FREE TEXT/NARRATIVE: Patient is a 59-year-old female who presents to the ED for a headache. Patient states that this headache started yesterday, she notes that in the left frontal portion of her head, behind her eye, into her mosque and front of her scalp. She notes this to be a very sharp stabbing type pain. She is not had a headache like this before but does have a history of headaches. She does complain of some mild blurriness to her vision in her left eye however states that it is not horribly blurry. She has been using Tylenol for her headache, it seems to help relieve the headache somewhat but then comes back pretty strong after the Tylenol wears off. She also has a prescription for gabapentin, that seems to help with the headache as well. Primary care provider is Dr. Madison. She would rate her pain at a 5 out of 10 today. She notes this is definitely not the worst headache she is ever had. 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 She denies any fevers or chills, cough/shortness of breath, she has had no vomiting or diarrhea states a mild bit of nausea but it was not enough to make her skip lunch. - Related Data Allergies Allergy/AdvReac Type Severity Reaction Status Date / Time azithromycin Allergy Cannot Verified 06/22/20 16:10 Remember clindamycin Allergy Cannot Verified 06/22/20 16:10 Remember erythromycin base Allergy Cannot Verified 06/22/20 16:10 Remember Penicillins Allergy Cannot Verified 06/22/20 16:10 Remember Home Meds: Home Meds Amitriptyline [Elavil] 10 mg PO DAILY 07/21/19 [History] FLUoxetine [PROzac] 40 mg PO DAILY 07/21/19 [History] Gabapentin [Neurontin] 100 mg PO TID 07/21/19 [History] Simvastatin [Zocor] 40 mg PO DAILY 07/21/19 [History] Dapagliflozin/Metformin HCl [Xigduo Xr 5 mg-1,000 mg Tablet] 1 tab PO DAILY 07/23/19 [History] Docusate Sodium/Sennosides [Senna Plus] 2 tab PO BEDTIME #60 tablet 07/25/19 [Rx] Insulin Glarg,Human.Rec.Analog [Lantus] 25 unit SUBCUT BEDTIME 06/22/20 [History] Semaglutide [Ozempic] 2 mg SQ ASDIRECTED 06/22/20 [History] Past Medical History HEENT History: Reports: Impaired Vision, Other (See Below) Other HEENT History: wears glasses and full set of dentures Cardiovascular History: Reports: High Cholesterol, Hypertension Respiratory History: Reports: Asthma, COPD, Sleep Apnea Other Respiratory History: wears cpap machine at home Gastrointestinal History: Reports: Diverticulosis, GERD, PUD Genitourinary History: Reports: Urinary Incontinence 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: Reports: , Other (See Below) Other 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: 2 c-sections Neurological History: Reports: Headaches, Chronic Psychiatric History: Reports: Depression Endocrine/Metabolic History: Reports: Diabetes, Type II, Hypothyroidism, Obesity/BMI 30+ Dermatologic History: Reports: Other (See Below) Other Dermatologic History: vaginal yeast infections - Infectious Disease History Infectious Disease History: Reports: Chicken Pox, Influenza - Past Surgical History HEENT Surgical History: Reports: Oral Surgery Other HEENT Surgeries/Procedures: teeth removal GI Surgical History: Reports: Appendectomy, Colonoscopy, EGD, Hernia, Abdominal Other GI Surgeries/Procedures: both hernias have been repaired, 2 lypomas removed one to back and one to abdomen Female Surgical History: Reports: Section, Hysterectomy, Tubal Ligation Social & Family History - Family History Family Medical History: No Pertinent Family History - Tobacco Use Tobacco Use Status *Q: Former Tobacco User Used Tobacco, but Quit: Yes Month/Year Tobacco Last Used: 04/2012 - Caffeine Use Caffeine Use: Reports: Soda Other Caffeine Use: once every couple of days a soda - Recreational Drug Use Recreational Drug Use: No - Living Situation & Occupation Living situation: Reports: , with Spouse Occupation: Employed ([employer]) ED ROS GENERAL - Review of Systems Review Of Systems: Comprehensive ROS is negative, except as noted in HPI. - Physical Exam Exam: See Below Exam Limited By: No Limitations General Appearance: Alert, WD/WN, No Apparent Distress Eye Exam: Bilateral Eye: EOMI, Normal Inspection, PERRL Respiratory/Chest: No Respiratory Distress, Lungs Clear, Normal Breath Sounds, No Accessory Muscle Use, Chest Non-Tender Cardiovascular: Normal Peripheral Pulses, Regular Rate, Rhythm, No Edema Neuro Exam (Abbreviated): Alert, Oriented, CN II-XII Intact (grossly), Normal Cognition, No Motor/Sensory Deficits Extremities: Normal Inspection, Normal Capillary Refill Psychiatric: Normal Affect, Normal Mood Skin Exam: Warm, Dry, Intact, Normal Color, No Rash Course - Vital Signs Last Recorded V/S: Last Vital Signs Temp 97.6 F 06/22/20 15:13 Pulse 94 06/22/20 15:13 Resp 14 06/22/20 15:13 BP 134/83 06/22/20 15:13 Pulse Ox 96 06/22/20 15:13 - Orders/Labs/Meds Orders: Active Orders 24 hr Category Date Time Status Peripheral IV Care [RC] . DIRECTED Care 06/22/20 15:29 Active Sodium Chloride 0.9% [Saline Flush] Med 06/22/20 15:29 Active 10 ml FLUSH ASDIRECTED PRN Peripheral IV Insertion Adult [OM.PC] Routine Oth 06/22/20 15:29 Ordered Medication Orders Sodium Chloride (Sodium Chloride 0.9% 10 Ml Syringe) 10 ml FLUSH ASDIRECTED PRN PRN Reason: Keep Vein Open Last Admin: 06/22/20 16:01 Dose: 10 ml Documented by: JEANMARIE Labs: Laboratory Tests 06/22/20 06/22/20 Range/Units 15:41 15:41 WBC 9.34 (3.98-10.04) K/mm3 RBC 4.66 (3.98-5.22) M/mm3 Hgb 14.6 D (11.2-15.7) gm/dl Hct 46.5 H (34.1-44.9) % MCV 99.8 H (79.4-94.8) fl MCH 31.3 (25.6-32.2) pg MCHC 31.4 L (32.2-35.5) g/dl RDW Std Deviation 47.7 H (36.4-46.3) fL Plt Count 326 (182-369) K/mm3 MPV 10.4 (9.4-12.3) fl Neut % (Auto) 56.2 (34.0-71.1) % Lymph % (Auto) 32.3 (19.3-51.7) % Collin % (Auto) 9.7 (4.7-12.5) % Eos % (Auto) 1.3 (0.7-5.8) Baso % (Auto) 0.3 (0.1-1.2) % Neut # (Auto) 5.24 (1.56-6.13) K/mm3 Lymph # (Auto) 3.02 (1.18-3.74) K/mm3 Collin # (Auto) 0.91 H (0.24-0.36) K/mm3 Eos # (Auto) 0.12 (0.04-0.36) K/mm3 Baso # (Auto) 0.03 (0.01-0.08) K/mm3 Sodium 140 (136-145) mEq/L Potassium 4.2 (3.5-5.1) mEq/L Chloride 101 (98-107) mEq/L Carbon Dioxide 27 (21-32) mEq/L Anion Gap 16.2 H (5-15) BUN 10 (7-18) mg/dL Creatinine 1.0 (0.55-1.02) mg/dL Est Cr Clr Drug Dosing 44.58 mL/min Estimated GFR (MDRD) 57 (>60) mL/min BUN/Creatinine Ratio 10.0 L (14-18) Glucose 189 H (74-106) mg/dL Calcium 9.1 (8.5-10.1) mg/dL Total Bilirubin 0.3 (0.2-1.0) mg/dL AST 34 (15-37) U/L ALT 51 (14-59) U/L Alkaline Phosphatase 73 (46-116) U/L Total Protein 7.5 (6.4-8.2) g/dl Albumin 3.7 (3.4-5.0) g/dl Globulin 3.8 gm/dL Albumin/Globulin Ratio 1.0 (1-2) Meds: Medications Generic Name Dose Route Start Last Admin Trade Name Freq PRN Reason Stop Dose Admin Sodium Chloride 10 ml 06/22/20 15:29 06/22/20 16:01 Sodium Chloride 0.9% 10 Ml Syringe FLUSH 10 ml ASDIRECTED PRN Administration Keep Vein Open Discontinued Medications Generic Name Dose Route Start Last Admin Trade Name Freq PRN Reason Stop Dose Admin Diphenhydramine HCl 25 mg 06/22/20 15:29 06/22/20 15:54 Diphenhydramine 50 Mg/Ml Sdv IVPUSH 06/22/20 15:30 25 mg ONETIME ONE Administration Sodium Chloride 1,000 mls @ 999 mls/hr 06/22/20 15:29 06/22/20 15:50 Normal Saline IV 06/22/20 16:29 999 mls/hr ASDIRECTED ONE Administration Ketorolac Tromethamine 30 mg 06/22/20 15:29 06/22/20 15:52 Ketorolac 30 Mg/Ml Sdv IVPUSH 06/22/20 15:30 30 mg ONETIME ONE Administration Metoclopramide HCl 10 mg 06/22/20 15:29 06/22/20 15:50 Metoclopramide 10 Mg/2 Ml Sdv IVPUSH 06/22/20 15:30 10 mg ONETIME ONE Administration - Re-Assessments/Exams Free Text/Narrative Re-Assessment/Exam: 06/22/20 15:32 Patient presents to the ED for her headache, we will get an IV started, get some baseline labs, will give her Toradol, Benadryl, Reglan and some IV fluids to see if this helps her headache. 06/22/20 16:35 Patient notes that her headache is much better, labs are unremarkable at this time. Patient will be discharged home with general recommendations. Departure - Departure Time of Disposition: 16:36 Disposition: Home, Self-Care 01 Condition: Good Clinical Impression: Tension-type headache - Discharge Information *PRESCRIPTION DRUG MONITORING PROGRAM REVIEWED*: No *COPY OF PRESCRIPTION DRUG MONITORING REPORT IN PATIENT ABIOLA: No Instructions: General Headache Without Cause, [id number] Referrals: Pennie Hall MD [Primary Care Provider] - Forms: ED Department Discharge Additional Instructions: You were evaluated in the ED for your headache. You were given a combination of medications and IV fluid for management. This did seem to provide you pretty good relief of your symptoms. Recommend that you go home and rest in a quiet, darkened room. Try also to keep well hydrated. Laboratory evaluation at today's visit was also unremarkable. Please return to the ED if your symptoms should change or worsen. Sepsis Event Note (ED) - Evaluation Sepsis Screening Result: No Definite Risk - Focused Exam Vital Signs: Vital Signs Temp Pulse Resp BP Pulse Ox 06/22/20 15:13 97.6 F 94 14 134/83 96 - My Orders Last 24 Hours: My Active Orders 06/22/20 15:29 Peripheral IV Care [RC] . DIRECTED Sodium Chloride 0.9% [Saline Flush] 10 ml FLUSH ASDIRECTED PRN Peripheral IV Insertion Adult [OM.PC] Routine - Assessment/Plan Last 24 Hours: My Active Orders 06/22/20 15:29 Peripheral IV Care [RC] . DIRECTED Sodium Chloride 0.9% [Saline Flush] 10 ml FLUSH ASDIRECTED PRN Peripheral IV Insertion Adult [OM.PC] Routine
== END 2020-06-22 17:08 | disposition home or self-care (01) ==
LOC: JD.ED 15:04
DX: G44.209 Tension-type headache, unspecified, not intractable (principal); E78.00 Pure hypercholesterolemia, unspecified; I10 Essential (primary) hypertension; J44.9 Chronic obstructive pulmonary disease, unspecified; E11.9 Type 2 diabetes mellitus without complications; E66.9 Obesity, unspecified; Z68.41 Body mass index [BMI] 40.0-44.9, adult; Z88.1 Allergy status to other antibiotic agents; Z88.0 Allergy status to penicillin; Z79.899 Other long term (current) drug therapy; Z79.4 Long term (current) use of insulin; Z87.891 Personal history of nicotine dependence
CPT/HCPCS: 36415; 80053; 85025; 96374; 96375; 99284; J1200; J1885; J2765; J7030; 99283

== ENCOUNTER 2023-01-17 07:52 | Day surgery (SDC) | payer SELFPAY ==
[2023-01-17] MEDS: Polymyxin B/Trimethoprim 10 ML Bottle EYELF SCH ×4 (07:08→08:34)
[2023-01-17] MEDS: Brimonidine 0.2% Ophth Soln 5 ML Bottle EYELF SCH ×4 (07:12→08:34)
[2023-01-17] MEDS: Phenylephrine 2.5% Ophth Soln 2 ML Bot EYELF SCH ×5 (07:15→08:12)
[2023-01-17] MEDS: Tropicamide 1% Ophth Soln 3 ML Bottle EYELF SCH ×4 (07:18→08:00)
[2023-01-17] MEDS: Lidocaine 1% PF 2 ML SDV INJECT SCH ×2 (07:33→08:21)
[2023-01-17] MEDS: Tetracaine HCl/PF 0.5% 4 ML Bottle EYEBOTH SCH ×5 (07:33→08:21)
[2023-01-17] MEDS: Pilocarpine 4% Ophth Soln 15 ML Bot EYELF SCH ×2 (07:34→08:34)
[2023-01-17] MEDS: Cefuroxime 10 MG/ML SYRINGE EYELF SCH ×2 (07:34→08:34)
== END 2023-01-17 08:41 ==
LOC: JD.SDS 07:52
PROVIDERS: ATTEND Ophthalmology
DX: E11.36 Type 2 diabetes mellitus with diabetic cataract (principal); H25.812 Combined forms of age-related cataract, left eye; H18.231 Secondary corneal edema, right eye; H01.02B Squamous blepharitis left eye, upper and lower eyelids; H01.02A Squamous blepharitis right eye, upper and lower eyelids; F41.9 Anxiety disorder, unspecified; F32.A Depression, unspecified; E78.00 Pure hypercholesterolemia, unspecified; I10 Essential (primary) hypertension; E11.40 Type 2 diabetes mellitus with diabetic neuropathy, unspecified; E03.9 Hypothyroidism, unspecified; K21.9 Gastro-esophageal reflux disease without esophagitis; E66.9 Obesity, unspecified; Z98.41 Cataract extraction status, right eye; Z96.1 Presence of intraocular lens; Z87.891 Personal history of nicotine dependence; Z79.890 Hormone replacement therapy; Z79.4 Long term (current) use of insulin; Z79.84 Long term (current) use of oral hypoglycemic drugs; Z79.85 Long-term (current) use of injectable non-insulin antidiabetic drugs; Z79.899 Other long term (current) drug therapy; Z88.0 Allergy status to penicillin; Z88.1 Allergy status to other antibiotic agents
CPT/HCPCS: 66984; A9270; J0697; J3490

== ENCOUNTER 2023-03-11 15:49 | Emergency (ER) | payer BC ==
[2023-03-11] MEDS ORDERED: Sodium Chloride 0.9% 10 ML Syringe FLUSH PRN (16:34)
[2023-03-11] MEDS ORDERED: Sodium Chloride 0.9% 1,000 ML IV SCH (16:45)
[2023-03-11] MEDS ORDERED: Iopamidol 612 MG/ML 100 ML Bottle IVPUSH ONE (16:49)
[2023-03-11] MEDS ORDERED: Sodium Chloride 0.9% 10 ML Syringe FLUSH ONE (16:49)
[2023-03-11 16:58] LABS: BASOPHILS ABSOLUTE AUTO 0.1 K/mm3 (0.0-0.2); BASOPHILS PERCENT AUTO 0.7 % (0.0-1.0); EOSINOPHILS ABSOLUTE AUTO 0.2 K/mm3 (0.0-0.4); HEMATOCRIT 46.7 % (37.0-47.0); HEMOGLOBIN 15.5 gm/dl (12.0-16.0); IMMATURE GRAN ABSOLUTE AUTO 0.03 K/mm3 (0.00-0.05); IMMATURE GRAN PERCENT AUTO 0.3 % (0.0-0.4); LYMPHOCYTES ABSOLUTE AUTO 3.1 K/mm3 (1.0-4.8); LYMPHOCYTES PERCENT AUTO 31.8 % (24.0-44.0); MEAN CORPUSCULAR HEMOGLOBIN 31.4 pg (28.0-32.0); MEAN CORPUSCULAR HGB CONC 33.2 g/dl (32.0-36.0); MEAN CORPUSCULAR VOLUME 94.7 fl (83.0-99.0); MEAN PLATELET VOLUME 10.9 fl (9.4-12.3); MONOCYTES ABSOLUTE AUTO 0.6 K/mm3 (0.0-0.8); MONOCYTES PERCENT AUTO 6.3 % (0.0-8.0); NEUTROPHILS ABSOLUTE AUTO 5.7 K/mm3 (1.8-7.7); NEUTROPHILS PERCENT AUTO 58.9 % (41.0-71.0); PLATELET COUNT,PLT 326 K/mm3 (150-400); RED BLOOD CELL COUNT 4.93 M/mm3 (4.10-5.30); WHITE BLOOD CELL COUNT,WBC 9.59 K/mm3 (3.9-11.3)
[2023-03-11 17:24] LABS: A/G RATIO 0.8 (1-2); ALANINE AMINOTRANSFERASE,ALT 58 U/L (14-59); ALBUMIN 3.5 g/dl (3.4-5.0); ALKALINE PHOSPHATASE 107 U/L (46-116); ANION GAP 13.4 (5-15); ASPARTATE AMNIOTRANSFERASE,AST 73 U/L (15-37); BILIRUBIN TOTAL 0.5 mg/dL (0.2-1.0); BLOOD UREA NITROGEN,BUN 13 mg/dL (7-18); BUN/CREATININE RATIO 14.4 (14-18); CALCIUM 9.5 mg/dL (8.5-10.1); CARBON DIOXIDE,CO2 26 mEq/L (21-32); CHLORIDE,CL 97 mEq/L (98-107); CREATININE 0.9 mg/dL (0.55-1.02); ESTIMATED GFR 73 mL/min (>60); GLUCOSE RANDOM 313 mg/dL (70-99); SODIUM,NA 132 mEq/L (136-145)
[2023-03-11 17:25] LABS: POTASSIUM,K 4.4 mEq/L (3.5-5.1)
[2023-03-11 18:35] LABS: T4 FREE 0.93 ng/dL (0.76-1.46)
== END 2023-03-11 19:21 | disposition home or self-care (01) ==
LOC: JD.ED 15:49
DX: M54.2 Cervicalgia (principal); R94.6 Abnormal results of thyroid function studies; R91.1 Solitary pulmonary nodule; I10 Essential (primary) hypertension; E78.00 Pure hypercholesterolemia, unspecified; J44.9 Chronic obstructive pulmonary disease, unspecified; E11.9 Type 2 diabetes mellitus without complications; E03.9 Hypothyroidism, unspecified; E66.9 Obesity, unspecified; Z88.0 Allergy status to penicillin; Z88.1 Allergy status to other antibiotic agents; Z79.899 Other long term (current) drug therapy; W01.198A Fall on same level from slipping, tripping and stumbling with subsequent striking against other object, initial encounter; Y93.01 Activity, walking, marching and hiking
CPT/HCPCS: 36415; 70492; 80053; 84439; 84443; 85025; 99284; J3490; J7030; Q9967